=== PATIENT | female | born 1955 | race Caucasian/White ===

== ENCOUNTER 2016-10-07 18:29 | Observation (INO) ==
[2016-10-07] MEDS ORDERED: 0.9 % Sodium Chloride 1,000 ML IVC ONE (18:54)
[2016-10-07 19:31] LABS: Basophils % 0.3 %; Eosinophils % 0.2 %; Hematocrit 47.8 % (35.3-44.9); Hemoglobin 16.2 g/dL (11.5-15.4); Immature Granulocytes % 0.4 % (0-4); Lymphocytes # 1.2 K/mcL (0.6-4.6); Lymphocytes % 11.9 %; Mean Corpuscular HGB Conc 33.9 g/dL (31.6-35.5); Mean Corpuscular Hemoglobin 30.7 pg (28.0-33.3); Mean Corpuscular Volume 90.5 fL (83.0-100.0); Mean Platelet Volume 11.5 fL (9.4-12.4); Monocytes # 0.7 K/mcL (0.0-1.3); Monocytes % 7.5 %; Neutrophils # 7.8 K/mcL (1.6-8.9); Platelet Count 359 K/mcL (140-400); Red Blood Count 5.28 M/mcL (3.82-4.97); Red Cell Distribution Width 13.6 % (11.5-14.5); Segmented Neutrophils % 79.7 %
[2016-10-07 19:34] LABS: Ionized Calcium 1.19 mmol/L (1.15-1.35)
[2016-10-07 19:43] LABS: Albumin 3.7 g/dL (3.5-5.0); Bilirubin,Total 1.2 mg/dL (0.2-1.2); Calcium 10.1 mg/dL (8.6-10.8); Globulin 3.8 g/dL (2.4-3.5); Magnesium 1.9 mg/dL (1.6-2.6); Potassium 3.7 mEq/L (3.5-4.5); Total Protein 7.5 g/dL (6.0-8.3)
--- NOTE | 2016-10-07 19:53 | Emergency Department Note ---
Disposition Clinical Impression: Elevated creatine kinase, Dehydration Depression Qualifiers: Depression Type: unspecified Qualified Code(s): F32.9 - Major depressive disorder, single episode, unspecified Failure to thrive Qualifiers: Failure to thrive age range: in adult Qualified Code(s): R62.7 - Adult failure to thrive Disposition: Admitted As Inpatient Condition: Good Referrals: NO,PCP [Non-Partnered Physician] - Time of Disposition: 21:18 Weakness HPI - General Chief complaint: ED General Medical Stated complaint: GENERAL Time Seen by Provider: 10/07/16 18:30 Source: patient, EMS Mode of arrival: EMS Limitations: no limitations Nursing Notes Reviewed: Yes Vital Signs Reviewed: Yes - History of Present Illness HPI Narrative: Patient presents emergency room for evaluation of generalized malaise and weakness. According to family patient has been sitting on the toilet for the last 4 days and has not moved. They are concerned about her medical condition. She has underlying depression and also concerned about a secondary to life stressors. She has no money and has financial issues along with Advair has been doing placed in a care home. Patient denies chest pain shortness of breath headache changes nausea vomiting or diarrhea. Family recommended she come to the emergency room and evaluated. Pt Subjective Complaint: generalized weakness/fatigue Onset (ago): day(s) Duration: constant Location: generalized Migration: none Pain Severity: none Pain Scale: 0 If pain, quality: numbness Improves with: none Worsens with: none Context: history of similar - Related Data Home Medications Medication Instructions Recorded Confirmed Acetaminophen [Tylenol Arthritis] 650 mg PO BID PRN 10/07/16 10/07/16 Cyclobenzaprine [Flexeril] 10 mg PO HS 10/07/16 10/07/16 Gabapentin [Neurontin] 300 mg PO TID 10/07/16 10/07/16 Hydrochlorothiazide [Microzide] 12.5 mg PO DAILY 10/07/16 10/07/16 Levothyroxine [Synthroid] 175 mcg PO 0630 10/07/16 10/07/16 Lovastatin 40 mg PO DAILY 10/07/16 10/07/16 Mv-Mn/FA/Vit K/Lycop/Lut/Coq10 1 each PO DAILY 10/07/16 10/07/16 [Daily Multivitamin Capsule] Paricalcitol [Zemplar] 1 mcg PO DAILY 10/07/16 10/07/16 Potassium Chloride [K-Tab ER] 20 meq PO DAILY 10/07/16 10/07/16 Allergies Allergy/AdvReac Type Severity Reaction Status Date / Time No Known Allergies Allergy Verified 10/07/16 20:12 All systems ED: reviewed and negative except as stated. Constitutional: Denies: fever, chills Cardiovascular: Denies: chest pain, palpitations, dyspnea on exertion Respiratory: Denies: dyspnea, wheezes Gastrointestinal: Denies: abdominal pain, nausea, vomiting, diarrhea Genitourinary: Denies: dysuria, frequency Musculoskeletal: Denies: back pain, neck pain Neurological: Denies: headache Psychiatric: Reports: depression Endocrine: Reports: fatigue Past Medical History - Past Medical History Attestation: Yes The following information was validated with the patient. Source: patient, old records reviewed, obtained from family Medical history: Reports: diabetes, hyperlipidemia, hypertension, renal disease , thyroid disease Psychiatric history: Reports: no psych history - Social History Smoking Status: Former smoker Smokeless Tobacco Status: No Alcohol use: Reports: none Drug use: Reports: none Physical Exam - General Limitations: no limitations General appearance: alert - Head Head exam: atraumatic, normocephalic, normal inspection - Neck Neck exam: Present: normal inspection, full ROM, trachea midline - Chest Chest inspection: Present: normal inspection, symmetric chest wall rise - Respiratory Respiratory exam: Present: normal lung sounds bilaterally - Cardiovascular Cardiovascular exam: Present: regular rate, normal rhythm, normal heart sounds - Abdominal Exam Abdominal exam: Present: soft, Non-Tender, normal bowel sounds. Absent: tenderness, distention, guarding, rebound, rigidity, Carty's sign, Rovsing's sign, tenderness at McBurney's Point, pulsatile mass, hernia - Extremities Exam Extremities exam: Present: normal inspection, full ROM, normal capillary refill. Absent: pedal edema - Back Exam Back exam: Present: normal inspection, full ROM. Absent: tenderness - Neurological Exam Neurological exam: Present: alert, oriented X3, CN II-XII intact - Psychiatric Psychiatric exam: Present: normal affect, normal mood - Skin Skin exam: Present: warm, dry, intact, normal color Course Course Narrative: Patient seen and examined at the time of arrival. See history of present illness. Patient presented by EMS at the request of the family for evaluation of generalized malaise weakness and depression. Patient said that she been sitting on her toilet for approximately 4 days. Patient has a history of depression. She has not been taking her medications. She also has 2 significant life stressors including financial issues as well as her being placed in a care home within the last month. Family denies any other symptoms or complaint prior to this. She has had issues like this in the past physical exam is benign. Patient has flat affect and withdrawn presentation she interacts and answers questions but is with some encouragement. Lungs are clear heart is regular abdomen is soft. She has no guarding or rigidity. She moves her extremities without any deficit. She has normal sensation. Her skin appears to have several areas of either stool or dirt on her feet and legs. Patient has no visible signs of injury to the lower extremity skin breakdown or deterioration. Family is more concerned at this point prefer to thrive, depression and inability take care of herself at home. They do not live closely and she takes care of herself at this time. At this point we will do an evaluation for generalized weakness including electrolytes CK urinalysis fluid hydration and intervention as needed. Disposition of indeterminate treatment course is completed. Social work is not available at this time a consultation will be placed once the workup and treatment course are completed. Disposition pending treatment and evaluation. - Reevaluation(s) Reevaluation #1: Patient is found to have an elevated CK at 318. Clinically this is not significant but it is not known whether it is trending up trending down at this time. Fluid hydration given. Patient has no other acute abnormalities on exam. My concern is that she has failure to thrive increasing depression that is causing concern for her medical condition and treatment of herself. Patient this time was discussed with the hospitalist for admission secondary to elevated CK 4 trending fluid hydration and social studies department chair consult. Will review the patient's course of care medical intervention presentation and family concern in great detail. After conversation he is comfortable admitting the patient for further evaluation. Admission is clinically warranted at this time with my concern being that the patient may continue to decompensate and she does not have appropriate resources in place and no family close. Patient is stable at the time of being admitted to the hospital for further evaluation and treatment. Will continue monitoring. Family informed. Disposition pending treatment course. Time: 21:04 Vital Signs Temperature 97.4 F L 10/07/16 18:32 Pulse Rate 89 10/07/16 18:32 Respiratory Rate 16 10/07/16 18:32 Blood Pressure 140/90 10/07/16 18:32 O2 Sat by Pulse Oximetry 97 10/07/16 18:32 Temperature 97.4 F L 10/07/16 18:32 Pulse Rate 89 10/07/16 18:32 Respiratory Rate 16 10/07/16 21:23 Blood Pressure 121/77 10/07/16 21:23 O2 Sat by Pulse Oximetry 97 10/07/16 18:32 Oxygen Delivery Oxygen Delivery Room Air Weakness - MDM Narrative Medical decision making narrative: Elevated CK, dehydration, weakness, failure to thrive, depression - Medical Records Medical records reviewed: Yes I reviewed the patient's medical records. - Lab Data Lab results reviewed: Yes I reviewed the patient's lab results. Result diagrams: 10/07/16 19:22 10/07/16 19:22 Lab Results 10/07/16 10/07/16 10/07/16 Range/Units 19:22 19:22 19:22 WBC 9.8 (4.3-11.1) K/mcL RBC 5.28 H (3.82-4.97) M/mcL Hgb 16.2 H (11.5-15.4) g/dL Hct 47.8 H (35.3-44.9) % MCV 90.5 (83.0-100.0) fL MCH 30.7 (28.0-33.3) pg MCHC 33.9 (31.6-35.5) g/dL RDW 13.6 (11.5-14.5) % Plt Count 359 (140-400) K/mcL MPV 11.5 (9.4-12.4) fL Immature Gran % 0.4 (0-4) % Seg Neutrophils % 79.7 % Lymphocytes % 11.9 % Monocytes % 7.5 % Eosinophils % 0.2 % Basophils % 0.3 % Neutrophils # 7.8 (1.6-8.9) K/mcL Lymphocytes # 1.2 (0.6-4.6) K/mcL Monocytes # 0.7 (0.0-1.3) K/mcL Eosinophils # 0.0 (0.0-0.6) K/mcL Basophils # 0.0 (0.0-0.2) K/mcL Sodium 139 (136-145) mEq/L Potassium 3.7 (3.5-4.5) mEq/L Chloride 100 (98-109) mEq/L Carbon Dioxide 25 (19-29) mEq/L BUN 30 H (7-20) mg/dL Creatinine 1.17 H (0.57-1.11) mg/dL Est GFR ( Amer) 57 L (> 60) Est GFR (Non-Af Amer) 47 L (> 60) BUN/Creatinine Ratio 26 (6-26) Glucose 131 H (70-99) mg/dL Calculated Osmolality 296 (280-300) Lactic Acid 1.7 (0.5-2.2) mmol/L Calcium 10.1 (8.6-10.8) mg/dL Ionized Calcium 1.19 (1.15-1.35) mmol/L Magnesium 1.9 (1.6-2.6) mg/dL Total Bilirubin 1.2 (0.2-1.2) mg/dL AST 23 (5-34) Units/L ALT 20 (0-55) Units/L Alkaline Phosphatase 74 (38-126) Units/L Creatine Kinase 316 H (29-168) Units/L Troponin I (0-0.03) ng/mL Serum Total Protein 7.5 (6.0-8.3) g/dL Albumin 3.7 (3.5-5.0) g/dL Globulin 3.8 H (2.4-3.5) g/dL Albumin/Globulin Ratio 1.0 L (1.1-2.2) Urine Color (Yellow) Urine Clarity (Clear) Urine pH (5.0-8.0) pH Units Ur Specific [place] (1.010-1.025) Urine Protein (Neg-Trace) mg/dL Urine Glucose (UA) (Normal) mg/dL Urine Ketones (Negative) mg/dL Urine Blood (Negative) Urine Nitrite (Negative) Urine Bilirubin (Negative) Urine Urobilinogen (Normal) mg/dL Ur Leukocyte Esterase (Negative) Urine Microscopic RBC (0-3) per hpf Urine Microscopic WBC (0-3) per hpf Ur Squamous Epith Cells (None-Few) per lpf Urine Bacteria (None-Few) per hpf Hyaline Casts (None-Few) per lpf Ur Culture Indicated? (NO) 05/03/17 05/03/17 Range/Units 19:22 20:36 WBC (4.3-11.1) K/mcL RBC (3.82-4.97) M/mcL Hgb (11.5-15.4) g/dL Hct (35.3-44.9) % MCV (83.0-100.0) fL MCH (28.0-33.3) pg MCHC (31.6-35.5) g/dL RDW (11.5-14.5) % Plt Count (140-400) K/mcL MPV (9.4-12.4) fL Immature Gran % (0-4) % Seg Neutrophils % % Lymphocytes % % Monocytes % % Eosinophils % % Basophils % % Neutrophils # (1.6-8.9) K/mcL Lymphocytes # (0.6-4.6) K/mcL Monocytes # (0.0-1.3) K/mcL Eosinophils # (0.0-0.6) K/mcL Basophils # (0.0-0.2) K/mcL Sodium (136-145) mEq/L Potassium (3.5-4.5) mEq/L Chloride (98-109) mEq/L Carbon Dioxide (19-29) mEq/L BUN (7-20) mg/dL Creatinine (0.57-1.11) mg/dL Est GFR ( Amer) (> 60) Est GFR (Non-Af Amer) (> 60) BUN/Creatinine Ratio (6-26) Glucose (70-99) mg/dL Calculated Osmolality (280-300) Lactic Acid (0.5-2.2) mmol/L Calcium (8.6-10.8) mg/dL Ionized Calcium (1.15-1.35) mmol/L Magnesium (1.6-2.6) mg/dL Total Bilirubin (0.2-1.2) mg/dL AST (5-34) Units/L ALT (0-55) Units/L Alkaline Phosphatase (38-126) Units/L Creatine Kinase (29-168) Units/L Troponin I 0.01 (0-0.03) ng/mL Serum Total Protein (6.0-8.3) g/dL Albumin (3.5-5.0) g/dL Globulin (2.4-3.5) g/dL Albumin/Globulin Ratio (1.1-2.2) Urine Color Dark Yellow (Yellow) Urine Clarity Clear (Clear) Urine pH 6.0 (5.0-8.0) pH Units Ur Specific [place] > 1.030 H (1.010-1.025) Urine Protein 100 H (Neg-Trace) mg/dL Urine Glucose (UA) Normal (Normal) mg/dL Urine Ketones 15 H (Negative) mg/dL Urine Blood Negative (Negative) Urine Nitrite Negative (Negative) Urine Bilirubin Moderate H (Negative) Urine Urobilinogen Normal (Normal) mg/dL Ur Leukocyte Esterase Negative (Negative) Urine Microscopic RBC 3-5 H (0-3) per hpf Urine Microscopic WBC 3-5 H (0-3) per hpf Ur Squamous Epith Cells Many H (None-Few) per lpf Urine Bacteria Few (None-Few) per hpf Hyaline Casts None Seen (None-Few) per lpf Ur Culture Indicated? NO (NO) - Radiology Data Radiology results reviewed: Yes I reviewed the patient's radiology results. Chest x-ray is negative for acute pulmonary infiltrate. - EKG Data EKG attestation: Yes I reviewed and interpreted this EKG. EKG shows normal: sinus rhythm, axis, intervals, QRS complexes, ST-T waves Rate: normal Rhythm: NSR [place]/QRS: normal When compared to previous EKG there are: no significant changes Interpretation: no acute changes, unchanged when compared to prior tracing (date ) Attestation Statement - Attestation Attestation: I examined this patient and my medical decision-making was reviewed with the [employer]ACHUTE RIGGER/PA/Advanced Practice Nurse/Resident Physician. I agree with the documented findings, disposition and treatment plan as described except to the extent set forth below. Patient to the emergency department with weakness. Depression. Patient lives at home alone. States she has been sitting on her toilet for 4 days. Her legs went numb from it. The numbness is recovered. On examination she appears disheveled. She is obese. Sensations intact her lower extremities. Plan. Patient is a slightly elevated CK likely from sitting on toilet for days. Her neurologic symptoms have resolved. Concern for her safety at home. Patient is admitted to the hospital.
[2016-10-07 20:42] LABS: Bilirubin,Urine Moderate (Negative); Blood,Urine Negative (Negative); Clarity,Urine Clear (Clear); Color,Urine Dark Yellow (Yellow); Glucose,Urine (UA) Normal (Normal); Ketones,Urine 15 mg/dL (Negative); Leukocyte Esterase,Urine Negative (Negative); Nitrite,Urine Negative (Negative); Protein,Urine 100 mg/dL (Neg-Trace); Specific Gravity,Urine > 1.030 (1.010-1.025); Urobilinogen,Urine Normal (Normal)
[2016-10-07 20:43] LABS: Bacteria,Urine Few per hpf (None-Few); Hyaline Casts,Urine None Seen per lpf (None-Few); Squamous Epithelial Cell,Urine Many per lpf (None-Few)
--- NOTE | 2016-10-08 02:00 | Internal Med History&Physical ---
<Gil Greenfield - Last Filed: 10/08/16 08:41> Date of Encounter: 10/08/16 Time of Encounter: 02:00 Assessment and Plan (1) Cellulitis Current visit: Yes Status: Acute -R foot. Noticed for 2 days. Not septic Plan -Start clinda -No podiatry consult needed at this time Qualifiers: Site of cellulitis: extremity Site of cellulitis of extremity: lower extremity Laterality: right Qualified Code(s): L03.115 - Cellulitis of right lower limb (2) Elevated creatine kinase Current visit: Yes Status: Acute -patient has not eaten or drank for a 4 days. -CK 316. Likely due to dehyrdation -Does complain of bilateral tricep pain. Denies weakness in proximal muscles, new onset parasthesias, FNLD, no new rashes. Doubt polymyositis/dematomyositis. CK <1,000. Not concerned with rhabdo. Believe this is acute CK elevation due to dehydration and possibly from slight muscle breakdown from sitting for 4 days/ having to move upon admission. I dont feel a full blown workup for elevated CK warranted. Plan -Draw CK at 8am -Diabetic diet -Fluids: NS 75ml (3) Diabetes Current visit: Yes Status: Acute -BS 130's -No home DM medication noted. Patient states she doesnt take any -Will initiate low dose sliding scale -Doubt patient took insulin to lower her BS that caused her to become lethargic. Denies previous suicide attempts. -Continue gabapentin. Qualifiers: Diabetes mellitus type: type 2 Diabetes mellitus complication status: with unspecified complications Diabetes mellitus longterm insulin use: unspecified longterm insulin use status Qualified Code(s): E11.8 - Type 2 diabetes mellitus with unspecified complications (4) Hypothyroid Current visit: Yes Status: Acute -Patient non compliant with medication -Will get TSH, free and total T4 Qualifiers: Hypothyroidism type: unspecified Qualified Code(s): E03.9 - Hypothyroidism , unspecified (5) DVT prophylaxis Current visit: Yes Status: Acute based on Cr and GFR, will do SQ heparin -Elevation likely due to dehydration. Patient not in GARRY. (6) Dehydration Current visit: Yes Status: Acute -mucus membranes dry. See above. Fluids (7) Depression Current visit: Yes Status: Acute -Secondary to acute stressors. Denies previous diagnosis or meds. -Will get psych consult. Will draw thyroid labs.Social service consult. Qualifiers: Depression Type: unspecified Qualified Code(s): F32.9 - Major depressive disorder, single episode, unspecified Internal Medicine - H&P: HPI Chief complaint: Generalized Malaise and Weakness Admitted From: Emergency Dept Plans for Post Hospital Care: Home History of present illness: Revaluated patient around 6am. Got a different HPI concerning why she was on the toilet for 4days. The last paragraph explains the change in the reevaluation , possible treatment and further management. Ms. Bass is a 61 year old female, PMH DM II, HTN, hypothyroidism, Depression, admitted for generalized weakness/ malaise, elevated CK 316, social service consult. Patient was found by family on the toilet in a disheveled/depressed state. Patient states that she has been sitting on the toilet for 4 days not eating or drinking because she didn't feel like getting up. She feels depressed , loss of interest, sleepiness, not eating or drinking. She has had 2 life stressors this month-financially and her placed in a fdc (per ED report). Patient states that she lives with her only, didnt really comment on fdc nor wanted to talk about it. She denies being diagnosed with depression or taking depression medication. Her only complaint is some bilateral triceps pain that happened 2 days ago. Described as sharp and only occurring when she moves her arms. Relieved by rest. She hasnt had this pain before. Denies weakness in shoulders or extremities, FNLD, [place]/blurry vision/new onset numbness or tingling. She does take gabapentin for peripheral neuropathy secondary to DM. Denies CP/SOB/Abdominal pain/urinary problems/bowel changes. No changes to medication. No drug, alcohol, smoking use. No recent surgeries. Family was concerned that patient was in a deteriorated state and admitted for fear of decompensation and addiction social worker/psych needs to get involved. Currently, patient states that she feels better now than before because she is able to rest. Her mood is flat. However, she does smile occasionally and jokes. Denies thoughts of harming herself or others. Revaluation in the morning when patient more responsive and provided more than one word answers: Patient states that she didn't get off the toilet for 4 days because of lower extremity weakness. That it took too much effort to raise herself up. She denies weakness to other parts of her body. Admits to Has not had this happen to her before. She admits to R foot edema/swelling/erythema for the past 2 days. Seems unconcerned with the appearance of her foot. She denies trauma to the area. physical exam: R foot erythema and swelling located throughout foot. There is noticeable odor, similar to a fungating area. No ulcers. No streaking up into the ankle, fluctuate mass, sole tenderness, signs of trauma.Is able to raise legs bilaterally and against resistance. Plantar and dorsiflex against resistance. Wiggle her does and normal sensation throughout. Patellar reflex hard to illicit. Patient not relaxing and has R total knee replacement. Calcaneal reflex WNL bilaterally. Lower extremity peripheral pulses +2/4. A/p: add antibiotics (clinda), is not septic. Psychiatry spoken with. Past Med Surg Social Fam HX - Past Medical History Medical history: diabetes, hyperlipidemia, hypertension, renal disease, thyroid disease Psychiatric history: no psych history - Past Surgical History Surgical History: knee replacement - Social History Smoking Status: Former smoker Smokeless Tobacco Status: No Alcohol use: none Drug use: none - Family History Mother History Unknown: Yes Adopted: [place]: [place] Family Member Ethnicity: Non- Living Status: Age at : 88 Cause of : Cancer Hx Family Cardiac Disorders: No Hx Family Respiratory Disorders: No Hx Family Cancer: Yes Hx Family GI Disorders: No Hx Family Genitourinary Disorders: No Hx Family Endocrine Disorder: No Hx Family Musculoskeletal Disorders: No Hx Family Neuromuscular Disorders: No Hx Family Neurologic Disorders: No Hx Family HEENT Disorders: No Hx Family Autoimmune Disorders: No Hx Family Reproductive Disorders: No Hx Family Psychosocial Disorders: No Hx Family Medical Disorders: No Father History Unknown: Yes Adopted: [place]: [place] Age: 63 Family Member Ethnicity: Non- Living Status: Age at : 63 Cause of : Heart issues Hx Family Cardiac Disorders: Yes Hx Family Respiratory Disorders: No Hx Family Cancer: Yes Hx Family GI Disorders: No Hx Family Genitourinary Disorders: No Hx Family Endocrine Disorder: No Hx Family Musculoskeletal Disorders: No Hx Family Neuromuscular Disorders: No Hx Family Neurologic Disorders: No Hx Family HEENT Disorders: No Hx Family Autoimmune Disorders: No Hx Family Reproductive Disorders: No Hx Family Psychosocial Disorders: No Hx Family Medical Disorders: No Internal Medicine - H&P: Meds Acetaminophen [Tylenol Arthritis] 650 mg PO BID PRN 10/07/16 [History] Cyclobenzaprine [Flexeril] 10 mg PO HS 10/07/16 [History] Gabapentin [Neurontin] 300 mg PO TID 10/07/16 [History] Hydrochlorothiazide [Microzide] 12.5 mg PO DAILY 10/07/16 [History] Levothyroxine [Synthroid] 175 mcg PO 0630 10/07/16 [History] Lovastatin 40 mg PO DAILY 10/07/16 [History] Mv-Mn/FA/Vit K/Lycop/Lut/Coq10 [Daily Multivitamin Capsule] 1 each PO DAILY 08/21 [History] Paricalcitol [Zemplar] 1 mcg PO DAILY 10/07/16 [History] Potassium Chloride [K-Tab ER] 20 meq PO DAILY 10/07/16 [History] Allergies No Known Allergies Allergy (Verified 10/07/16 20:12) All Systems PM: A 10-system review of systems was performed and is negative for pertinent findings except as documented above in the HPI. - Constitutional Constitutional: as per HPI - EENT Eyes: no change in vision, no discharge, no pain, no photophobia - Cardiovascular Cardiovascular ROS IM: no chest pain, no diaphoresis, no dyspnea, no lightheadedness, no palpitations, no syncope - Gastrointestinal Gastrointestinal: no abdominal pain, no diarrhea, no hematemesis, no hematochezia, no melena, no nausea, no vomiting - Neurological Neurological ROS: no confusion, no convulsions, no focal weakness, no numbness, no tingling, no tremor(s) - Psychiatric Psychiatric: as per HPI - Endocrine Endocrine IM: as per HPI - Constitutional Vitals: Temp Pulse Resp BP Pulse Ox 97.5 F L 99 16 126/89 93 10/07/16 22:00 10/07/16 22:00 10/07/16 22:00 10/07/16 22:00 10/07/16 22:00 General appearance: Present: A&O X 3, no acute distress, answers questions appropriately - Head Head exam: Present: atraumatic, normocephalic - Eye Eye exam: Present: PERRL, conjuntiva pink, sclera anicteric Pupils: Present: PERRL - ENT ENT exam: Present: mucous membranes dry - Respiratory Respiratory exam: Present: CTAB. Absent: accessory muscle use, rales, rhonchi, wheezes - Cardiovascular Cardiovascular exam: Present: RRR, +S1, +S2. Absent: diastolic murmur, gallop, rubs, systolic murmur - GI/Abdominal GI/Abdominal exam: Present: soft, no peritoneal signs. Absent: distended, tenderness - Extremities Exam Additional comments: upper extremity Bilaterally: unable to reproduce pain on palpation. Patient no longer having pain. Able to move extremities. Pulses intact. - Neurological Exam Neurological exam: Present: CN II-XII intact, oriented X3, no focal deficits. Absent: facial droop, speech deficit - Psychiatric Psychiatric exam: Present: depressed, flat affect. Absent: homicidal ideation, suicidal ideation - Expanded Psychiatric Exam Focused psych exam: Absent: flight of ideas, mute, pressured speech Internal Med - H&P Results - Labs CBC & Chem 7: 10/07/16 19:22 10/07/16 19:22 <Partha Hopper R - Last Filed: 10/08/16 09:37> Date of Encounter: 10/08/16 Internal Medicine - H&P: HPI History of present illness: Ms. Bass is a 61 year old female All Systems PM: A 10-system review of systems was performed and is negative for pertinent findings except as documented above in the HPI. - Constitutional Vitals: Temp Pulse Resp BP Pulse Ox 98.7 F 94 18 120/75 95 10/08/16 06:54 10/08/16 06:54 10/08/16 06:54 10/08/16 06:54 10/08/16 06:54 Internal Med - H&P Results - Labs CBC & Chem 7: 10/07/16 19:22 10/07/16 19:22 Labs: Cardiac Enzymes 10/08/16 Range/Units 03:38 Troponin I 0.01 (0-0.03) ng/mL - Attending Attestation I performed history and physical examination of the patient and discussed management with the Snow Technician / Resident. I reviewed the Snow Technician / Residents note and agree with documented findings and plan of care. 61 Y/F with h/o DM II, HTN, hypothyroidism, Depression was sitting on the toilet for 4 days because she felt weak and could not get up. Patient was found by family on the toilet in a disheveled/depressed state. She was noted to have CK of 316 in the ER. O/E: not in acute distress. Lungs: Clear to auscultation. Cardiac: RRR. There is local erythema over the right foot, with local warmth cellulitis versus thermal injury Labs reviewed. CXR: No acute cardiopulmonary findings. A/P: Elevated creatine kinase / rhabdomyolysis: likely related to sitting on the toilet for long versus hypothyroidism. Continue IV fluids and monitor CK levels. Suspected cellulitis of the right foot: Start clindamycin Depression: Continue home medications. She does not want to see psychiatrist at this time.
[2016-10-08] MEDS ORDERED: Naloxone 0.4 MG/ML INJ IVP PRN (02:11)
[2016-10-08] MEDS ORDERED: Ibuprofen 400 MG TABLET PO PRN (02:11)
[2016-10-08] MEDS ORDERED: 0.9 % Sodium Chloride 1,000 ML IVC SCH (02:15)
[2016-10-08] MEDS ORDERED: *HR* Dextrose 50 % in Water (Syg) 50 ML SYRINGE IVP PRN (03:40)
[2016-10-08] MEDS ORDERED: D5% in Water 1,000 ML IVC PRN (03:40)
[2016-10-08] MEDS ORDERED: Dextrose Gel 15 GM PO PRN ×2 (03:40)
[2016-10-08 04:49] LABS: Thyroid Stimulating Hormone 56.011 mcIU/mL (0.350-4.840)
[2016-10-08] MEDS: Acetaminophen 325 MG TABLET PO PRN ×2 (05:09→19:59)
[2016-10-08] MEDS: *HR* Heparin 5,000 UNIT/ML VIAL SQ SCH ×2 (05:10→17:12)
[2016-10-08] MEDS ORDERED: Ampicillin/Sulbactam 3,000 MG in 0.9 % Sodium Chloride Mini Bag 100 ML IVPB SCH (07:34)
[2016-10-08] MEDS: Insulin LISPRO 300 UNITS/3 ML VIAL SQ SCH ×3 (08:30→17:15)
[2016-10-08] MEDS: Gabapentin 300 MG CAPSULE PO SCH ×3 (08:34→19:59)
[2016-10-08] MEDS: Lactobacillus 1 EACH CAP.SPRINK PO SCH ×2 (08:34→19:59)
[2016-10-08] MEDS: Multivit/Ca/Min/Fe/FA 1 TAB TABLET PO SCH (08:34)
[2016-10-08] MEDS: hydroCHLOROthiazide 25 MG TABLET PO SCH (08:35)
--- NOTE | 2016-10-08 10:36 | Electrocardiograph Report ---
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
--- NOTE | 2016-10-08 14:49 | Event Note ---
Date of Encounter: 10/08/16 Time of Encounter: 14:49 61-year-old female with history of diabetes, hypothyroidism, chronic kidney disease, was admitted with generalized weakness and inability to move from her bathroom for at least 3-4 days. Patient is noted to have slightly elevated serum creatinine kinase along with depression and generalized weakness. Thyroid profile also shows very elevated TSH of 56 and low free T4 of 0.53. Patient seen and examined at bedside. Denies any complaints at this time, mood seems improved. Chest-S1, S2 heard. Lungs are clear to auscultation. Bilateral ankle jerks- slightly delayed Uncontrolled hypothyroidism- patient does demonstrate knowledge of levothyroxin peeled from the rest of her medications and meals by at least 1 hour and reports compliance. Levothyroxin dose has recently been increased by her primary care provider to 175 g daily, about 3 months back. Will start IV levothyroxine while in the hospital. Continue to monitor closely. Generalized weakness-likely due to uncontrolled hypothyroidism. Continue IV hydration, serum CK levels are trending down. Physical therapy evaluation. rehabilitation services aide consult. Continue home medications for other chronic comorbidities.
[2016-10-08] MEDS ORDERED: Insulin DETEMIR 100 UNIT/ML X5UNITS SQ SCH (21:00)
[2016-10-09 04:09] LABS: Hematocrit 39.8 % (35.3-44.9)
[2016-10-09 04:32] LABS: BUN/Creatinine Ratio 19 (6-26); Blood Urea Nitrogen 20 mg/dL (7-20); Calcium 8.8 mg/dL (8.6-10.8); Carbon Dioxide 26 mEq/L (19-29); Chloride 104 mEq/L (98-109); Glucose 89 mg/dL (70-99); Osmolality,Calculated 290 (280-300); Potassium 3.4 mEq/L (3.5-4.5); Sodium 139 mEq/L (136-145); eGFR For African Americans > 60 (> 60); eGFR For Non-African Americans 53 (> 60)
[2016-10-09] MEDS: *HR* Heparin 5,000 UNIT/ML VIAL SQ SCH ×2 (06:08→17:20)
[2016-10-09] MEDS: Insulin LISPRO 300 UNITS/3 ML VIAL SQ SCH ×3 (08:15→16:45)
[2016-10-09] MEDS: Multivit/Ca/Min/Fe/FA 1 TAB TABLET PO SCH (08:25)
[2016-10-09] MEDS: Lactobacillus 1 EACH CAP.SPRINK PO SCH (08:25)
[2016-10-09] MEDS: hydroCHLOROthiazide 25 MG TABLET PO SCH (08:26)
[2016-10-09] MEDS: Gabapentin 300 MG CAPSULE PO SCH ×2 (08:26→15:24)
[2016-10-09] MEDS ORDERED: Levothyroxine Sodium 100 MCG VIAL IVP SCH (09:00)
[2016-10-09] MEDS ORDERED: Potassium Chloride Elixir 20 MEQ/15 ML UDC PO ONE (13:54)
[2016-10-09 15:18] VITALS: BP 119/78
--- NOTE | 2016-10-09 15:24 | Discharge Summary ---
Date of Encounter: 10/09/16 Time of Encounter: 15:14 - Discharge Diagnosis (1) Elevated creatine kinase Priority: Primary Status: Acute (2) Depression Priority: Primary Status: Acute Qualifiers: Depression Type: unspecified Qualified Code(s): F32.9 - Major depressive disorder, single episode, unspecified (3) CKD (chronic kidney disease) Priority: Secondary Status: Chronic Qualifiers: Chronic kidney disease stage: stage 3 (moderate) Qualified Code(s): N18.3 - Chronic kidney disease, stage 3 (moderate) (4) Diabetes Priority: Secondary Status: Chronic Qualifiers: Diabetes mellitus type: type 2 Diabetes mellitus complication status: with kidney complications Diabetes mellitus complication detail: with chronic kidney disease Diabetes mellitus halfway insulin use: without adjunct faculty for medical terminology use Chronic kidney disease stage: stage 3 (moderate) Qualified Code(s): E11.22 - Type 2 diabetes mellitus with diabetic chronic kidney disease; N18.3 - Chronic kidney disease, stage 3 (moderate) (5) Hypothyroid Priority: Primary Status: Chronic Qualifiers: Hypothyroidism type: unspecified Qualified Code(s): E03.9 - Hypothyroidism , unspecified - Discharge Medications Prescriptions: Levothyroxine [Synthroid] 175 mcg PO 0630 #30 tablet Levothyroxine [Synthroid] 25 mcg PO 0630 #30 tablet Sertraline [Zoloft] 25 mg PO DAILY #30 tablet Home Medications: Acetaminophen [Tylenol Arthritis] 650 mg PO BID PRN 10/07/16 [History] Cyclobenzaprine [Flexeril] 10 mg PO HS 10/07/16 [History] Gabapentin [Neurontin] 300 mg PO TID 10/07/16 [History] Hydrochlorothiazide [Microzide] 12.5 mg PO DAILY 10/07/16 [History] Lovastatin 40 mg PO DAILY 10/07/16 [History] Mv-Mn/FA/Vit K/Lycop/Lut/Coq10 [Daily Multivitamin Capsule] 1 each PO DAILY 08/21 [History] Paricalcitol [Zemplar] 1 mcg PO DAILY 10/07/16 [History] Potassium Chloride [K-Tab ER] 20 meq PO DAILY 10/07/16 [History] Levothyroxine [Synthroid] 25 mcg PO 0630 #30 tablet 10/09/16 [Rx] Levothyroxine [Synthroid] 175 mcg PO 0630 #30 tablet 10/09/16 [Rx] Sertraline [Zoloft] 25 mg PO DAILY #30 tablet 10/09/16 [Rx] Allergies/Adverse Reactions: Allergies No Known Allergies Allergy (Verified 10/07/16 20:12) Procedures/tests Complete & Pending: Procedures Performed prior 72 hours Category Date Time Status ECG 12 lead ECG [ECG] Routine Y 10/08/16 05:05 Completed Date of admission: 10/07/16 20:54 Primary care physician: Marielos Awad Consults: 10/08/16 14:36 Consult to Occupational Therapy [CONS] Routine Comment: Evaluate, develop and implement POC Reason for Consult: Weakness Consult to Physical Therapy [CONS] Routine Comment: Evaluate, develop and implement POC Reason for Consult: Weakness Consult to Beauty Culturist [CONS] Routine Reason for SW Consult: Safe discharge Discharging clinician: Uma Alanis Anticipated date of discharge: 10/09/16 - Patient Status Disposition: Home, Self-Care Condition: Good Functional capacity at discharge: independent ambulation Overall status at discharge: patient is progressing back to baseline - Discharge Instructions Instructions: Depression (DC) Follow Up With: NO,PCP [Non-Partnered Physician] - Additional Instructions: F/up with PCP in 1-2 weeks F/up with Psychiatry for counseling as early as possible - Diet and Activity Activity: resume usual activities as tolerated Diet: diabetic diet, low fat, low cholesterol, low salt diet Hospital course: Ms. Bass is a 61 year old female with history of hypothyroidism who was admitted after noticed to have been sitting on the toilet for about 4 days per family and patient. She was noted to have generalized weakness and fatigue along with mildly elevated serum creatinine kinase during initial workup. Thyroid profile showed uncontrolled hypothyroidism with very high TSH at around 50 and low free T4. She was noted to be on oral levothyroxin 175 g daily at home. She claims compliance and she was reinforced regarding the need to separate thyroid medication from other medications/4 by at least 60 minutes and she verbalized understanding. She received IV levothyroxin while in the hospital. Levothyroxine dose is being increased to 200 g daily at the time of discharge. She received IV hydration and supportive care and her serum creatinine kinases was trending down to normal. Physical and occupational therapy evaluation was completed and patient was deemed to have no therapy needs and was stable for discharge home. Patient's mental status and more have significantly improved during this hospitalization and she is noted to be alert and oriented, able to make informed decisions with stable mood. She denied any suicidal or homicidal thoughts. Case was discussed with psychiatry and patient was deemed stable for discharge with outpatient mental health follow-up for possible counseling. director of managed services was consulted and patient received appropriate resources for safe discharge and self care at home. - Time Spent with Patient Total time spent providing and/or coordinating discharge services: Greater than 30 minutes (50 min) - Constitutional Vitals: Temp Pulse Resp BP Pulse Ox 97.6 F 65 16 117/78 98 10/09/16 11:41 10/09/16 11:41 10/09/16 11:41 10/09/16 11:41 10/09/16 11:41 General appearance: Present: A&O X 3, answers questions appropriately - Respiratory Respiratory exam: Present: CTAB. Absent: accessory muscle use, rales, rhonchi, wheezes - Cardiovascular Cardiovascular exam: Present: RRR, +S1, +S2. Absent: diastolic murmur, gallop, rubs, systolic murmur
--- NOTE | 2016-10-09 17:37 | Electrocardiograph Report ---
[place] [id number] Test Date: 2016-10-08 Pat Name: Angélica Bass Department: 114 Room: [facility] Gender: F Nut Process Helper: [facility] : 1955 Requested By: Mona Alanis Order Number: [id number] Reading MD: Yahaira Romero Measurements Intervals [place] Rate: 77 P: 60 TN: 169 QRS: -1 QRSD: 85 T: 163 QT: 391 QTc: 423 Interpretive Statements SINUS RHYTHM NONSPECIFIC ST \T\ T-WAVE ABNORMALITY Electronically Signed On 10-09-2016 17:36:11 EDT by Yahaira Romero
[2016-10-11 01:25] LABS: Amphetamines NEGATIVE ng/mL (Cutoff 30); Barbiturates NEGATIVE ng/mL (Cutoff 75); Benzodiazepines NEGATIVE ng/mL (Cutoff 75); Cocaine NEGATIVE ng/mL (Cutoff 30); Methadone NEGATIVE ng/mL (Cutoff 40); Methamphetamines NEGATIVE ng/mL (Cutoff 30); Opiates NEGATIVE ng/mL (Cutoff 30); Phencyclidine NEGATIVE ng/mL (Cutoff 15)
== END 2016-10-09 19:00 | disposition home or self-care (01) ==
LOC: 3NENU 18:29 → EMEROO 18:29 → SUATTDRO 20:54 → 3NENU 21:31
PROVIDERS: ADMIT Internal Medicine; ATTEND Internal Medicine

== ENCOUNTER 2016-10-19 12:17 | Inpatient (IN) ==
--- NOTE | 2016-10-19 12:31 | Emergency Department Note ---
Disposition Clinical Impression: Weakness, Wound cellulitis, Acute psychosis Depression Qualifiers: Depression Type: unspecified Qualified Code(s): F32.9 - Major depressive disorder, single episode, unspecified Disposition: Admitted As Inpatient Referrals: Marielos Awad MD [Primary Care Provider] - Forms: ED Satisfaction Letter General Adult HPI - General Chief complaint: ED GI Bleed Stated complaint: Back Pain/Rectal Bleeding Time Seen by Provider: 10/19/16 12:19 Source: patient, EMS Nursing Notes Reviewed: Yes Vital Signs Reviewed: Yes - History of Present Illness HPI Narrative: Ms. Bass, a 61yo female, presents from home by EMS with CC: bleeding from her buttocks. Patient was found on the toilet where she had been for the past 2-3 days. She has not had PO intake nor has she taken any of her medications. She was found by her sister who called EMS. Meds: Zoloft - patient did not refill prescription, unsure of last dose. Pain Scale: 10 - Related Data Home Medications Medication Instructions Recorded Confirmed Acetaminophen [Tylenol Arthritis] 650 mg PO BID PRN 10/07/16 10/07/16 Cyclobenzaprine [Flexeril] 10 mg PO HS 10/07/16 10/07/16 Gabapentin [Neurontin] 300 mg PO TID 10/07/16 10/07/16 Hydrochlorothiazide [Microzide] 12.5 mg PO DAILY 10/07/16 10/07/16 Lovastatin 40 mg PO DAILY 10/07/16 10/07/16 Mv-Mn/FA/Vit K/Lycop/Lut/Coq10 1 each PO DAILY 10/07/16 10/07/16 [Daily Multivitamin Capsule] Paricalcitol [Zemplar] 1 mcg PO DAILY 10/07/16 10/07/16 Potassium Chloride [K-Tab ER] 20 meq PO DAILY 10/07/16 10/07/16 Previous Rx's Medication Instructions Recorded Levothyroxine [Synthroid] 25 mcg PO 0630 #30 tablet 10/09/16 Levothyroxine [Synthroid] 175 mcg PO 0630 #30 tablet 10/09/16 Sertraline [Zoloft] 25 mg PO DAILY #30 tablet 10/09/16 Allergies Allergy/AdvReac Type Severity Reaction Status Date / Time No Known Allergies Allergy Verified 10/11/16 22:04 All systems ED: reviewed and negative except as stated. Constitutional: Denies: fever, chills, weakness ENT ED: Denies: congestion Cardiovascular: Denies: chest pain, palpitations, dyspnea on exertion Respiratory: Denies: cough, dyspnea, wheezes Gastrointestinal: Denies: abdominal pain, nausea, vomiting, diarrhea, constipation, hematemesis, melena Genitourinary: Denies: urgency, dysuria Musculoskeletal: Denies: back pain, neck pain Neurological: Reports: weakness. Denies: headache, numbness, paresthesias, confusion, abnormal gait, vertigo Psychiatric: Reports: depression Past Medical History - Past Medical History Medical history: Reports: diabetes, hyperlipidemia, hypertension, renal disease , thyroid disease Surgical history: Reports: knee replacement Psychiatric history: Reports: no psych history - Social History Smoking Status: Former smoker Smokeless Tobacco Status: No Alcohol use: Reports: none Drug use: Reports: none Physical Exam Vital signs reviewed: Tachycardic General: Patient is alert, oriented, and in no acute distress. HEENT: No facial asymmetry. Head is normocephalic and atraumatic. Cardiovascular: Heart regular rate and rhythm without clicks, rubs, gallops, or murmurs. No JVD. PMI nondisplaced. Respiratory: Symmetric chest rise with poor respiratory effort. Bilateral breath sounds are clear without wheezing, crackles, or rhonchi. Abdomen: Morbidly obese. Bowel sounds present normoactive x-4 quadrants. Abdomen is soft, nondistended, and nontender. No organomegaly noted. Skin: Skin breakdown on patient's buttocks and the shape of a toilet bowl. Which is foul-smelling and with surrounding erythema. Psych: Patient's affect is flat and solemn. - General General appearance: alert Course Course Narrative: Mild leukocytosis. Elevated creatinine kinase. Skin wounds concerning for cellulitis; will likely need wound care. Patient is agreeable to coming in the hospital for continued therapy management. She is agreeable to seeing a psychiatric counselor. As part of this discussion, she notes that her life has been going downhill since she lost her job in 2007. This appears to be recurrent as patient was admitted to this facility for the same complaint approximately 2 weeks ago. Patient has been accepted to the service of Dr. Gonzalez Vital Signs Temperature 98 F 10/19/16 12:19 Pulse Rate 102 10/19/16 12:19 Respiratory Rate 16 10/19/16 12:19 Blood Pressure 125/62 10/19/16 12:19 O2 Sat by Pulse Oximetry 96 10/19/16 12:19 Temperature 98 F 10/19/16 12:19 Pulse Rate 102 10/19/16 14:51 Respiratory Rate 16 10/19/16 14:51 Blood Pressure 135/86 10/19/16 14:51 O2 Sat by Pulse Oximetry 97 10/19/16 14:51 Oxygen Delivery Oxygen Delivery Room Air Medical Decision Making - Lab Data Result diagrams: 10/19/16 12:57 10/19/16 12:57 Lab Results 10/19/16 10/19/16 10/19/16 Range/Units 12:57 12:57 14:55 WBC 12.7 H (4.3-11.1) K/mcL RBC 4.68 (3.82-4.97) M/mcL Hgb 14.4 (11.5-15.4) g/dL Hct 44.1 (35.3-44.9) % MCV 94.2 (83.0-100.0) fL MCH 30.8 (28.0-33.3) pg MCHC 32.7 (31.6-35.5) g/dL RDW 14.4 (11.5-14.5) % Plt Count 379 (140-400) K/mcL MPV 10.5 (9.4-12.4) fL Immature Gran % 0.5 (0-4) % Seg Neutrophils % 88.5 % Lymphocytes % 5.1 % Monocytes % 5.7 % Eosinophils % 0.0 % Basophils % 0.2 % Neutrophils # 11.3 H (1.6-8.9) K/mcL Lymphocytes # 0.7 (0.6-4.6) K/mcL Monocytes # 0.7 (0.0-1.3) K/mcL Eosinophils # 0.0 (0.0-0.6) K/mcL Basophils # 0.0 (0.0-0.2) K/mcL Sodium 143 (136-145) mEq/L Potassium 3.9 (3.5-4.5) mEq/L Chloride 103 (98-109) mEq/L Carbon Dioxide 27 (19-29) mEq/L BUN 20 (7-20) mg/dL Creatinine 0.97 (0.57-1.11) mg/dL Est GFR ( Amer) > 60 (> 60) Est GFR (Non-Af Amer) 59 L (> 60) BUN/Creatinine Ratio 21 (6-26) Glucose 138 H (70-99) mg/dL Calculated Osmolality 301 H (280-300) Calcium 9.9 (8.6-10.8) mg/dL Creatine Kinase 326 H (29-168) Units/L Urine Opiates Screen Negative (Tauvrc=337) ng/mL Ur Barbiturates Screen Negative ([place]=277) ng/mL Ur Phencyclidine Scrn Negative (Cutoff=25) ng/mL Ur Amphetamines Screen Negative (Sklvkn=7851) ng/mL U Benzodiazepines Scrn Negative (Sytktc=778) ng/mL Urine Cocaine Screen Negative (Cutoff= 300) ng/mL U Marijuana (THC) Screen Negative (Cutoff = 50) ng/mL
[2016-10-19] MEDS ORDERED: 0.9 % Sodium Chloride 1,000 ML IVC ONE ×3 (12:43→21:41)
--- NOTE | 2016-10-19 13:02 | Emergency Department Note ---
Disposition Clinical Impression: Weakness, Wound cellulitis, Depression, Acute psychosis Disposition: Admitted As Inpatient General Adult HPI - General Chief complaint: ED General Medical Stated complaint: Weakness Time Seen by Provider: 10/19/16 12:19 Source: patient, EMS Nursing Notes Reviewed: Yes Vital Signs Reviewed: Yes - History of Present Illness Pain Scale: 10 - Related Data Home Medications Medication Instructions Recorded Confirmed Acetaminophen [Tylenol Arthritis] 650 mg PO BID PRN 10/07/16 10/07/16 Cyclobenzaprine [Flexeril] 10 mg PO HS 10/07/16 10/07/16 Gabapentin [Neurontin] 300 mg PO TID 10/07/16 10/07/16 Hydrochlorothiazide [Microzide] 12.5 mg PO DAILY 10/07/16 10/07/16 Lovastatin 40 mg PO DAILY 10/07/16 10/07/16 Mv-Mn/FA/Vit K/Lycop/Lut/Coq10 1 each PO DAILY 10/07/16 10/07/16 [Daily Multivitamin Capsule] Paricalcitol [Zemplar] 1 mcg PO DAILY 10/07/16 10/07/16 Potassium Chloride [K-Tab ER] 20 meq PO DAILY 10/07/16 10/07/16 Previous Rx's Medication Instructions Recorded Levothyroxine [Synthroid] 25 mcg PO 0630 #30 tablet 10/09/16 Levothyroxine [Synthroid] 175 mcg PO 0630 #30 tablet 10/09/16 Sertraline [Zoloft] 25 mg PO DAILY #30 tablet 10/09/16 Allergies Allergy/AdvReac Type Severity Reaction Status Date / Time No Known Allergies Allergy Verified 10/11/16 22:04 Past Medical History - Past Medical History Medical history: Reports: diabetes, hyperlipidemia, hypertension, renal disease , thyroid disease Surgical history: Reports: knee replacement Psychiatric history: Reports: no psych history - Social History Smoking Status: Former smoker Smokeless Tobacco Status: No Alcohol use: Reports: none Drug use: Reports: none Physical Exam - General General appearance: alert Course Vital Signs Temperature 98 F 10/19/16 12:19 Pulse Rate 102 10/19/16 12:19 Respiratory Rate 16 10/19/16 12:19 Blood Pressure 125/62 10/19/16 12:19 O2 Sat by Pulse Oximetry 96 10/19/16 12:19 Temperature 98 F 10/19/16 12:19 Pulse Rate 106 10/19/16 15:43 Respiratory Rate 18 10/19/16 15:43 Blood Pressure 140/85 10/19/16 15:43 O2 Sat by Pulse Oximetry 96 10/19/16 15:43 Oxygen Delivery Oxygen Delivery Room Air Medical Decision Making - MDM Narrative Medical decision making narrative: I examined this patient and my medical decision-making was reviewed with the CEMENTER HELPER/PA/Advanced Practice Nurse/Resident Physician. I agree with the documented findings, disposition and treatment plan as described except to the extent set forth below. Patient presents today from EMS, I saw her on arrival with Dr. Altman and myself. I agree with his evaluation and treatment plan, I supervised the care of the patient's stay. Patient states she has been sitting on the toilet has not felt like getting up. She said she no some blood positive from her rectum denies any abdominal pain. She has a very flat A fact does have a history of depression she denies homicidal or suicidal ideations denies any hallucinations. This looks similar to the last time she was admitted in the hospital there she had a CPK of 360 she said she did not sit on the toilet for over a day. Going to check some labs hydrate her then reassess. She is in agreement with this plan. 1600 hrs.: Patient does have breakdown or skin which looks like secondary cellulitis on her buttocks. This she says from sitting on the toilet. Her bring her into the hospital spoke with hospitalist evaluated her in the department. She will also need to see psychiatry as an inpatient. Patient's in agreement with this plan. - Lab Data Result diagrams: 10/19/16 12:57 10/19/16 12:57 Lab Results 10/19/16 10/19/16 10/19/16 Range/Units 12:57 12:57 14:55 WBC 12.7 H (4.3-11.1) K/mcL RBC 4.68 (3.82-4.97) M/mcL Hgb 14.4 (11.5-15.4) g/dL Hct 44.1 (35.3-44.9) % MCV 94.2 (83.0-100.0) fL MCH 30.8 (28.0-33.3) pg MCHC 32.7 (31.6-35.5) g/dL RDW 14.4 (11.5-14.5) % Plt Count 379 (140-400) K/mcL MPV 10.5 (9.4-12.4) fL Immature Gran % 0.5 (0-4) % Seg Neutrophils % 88.5 % Lymphocytes % 5.1 % Monocytes % 5.7 % Eosinophils % 0.0 % Basophils % 0.2 % Neutrophils # 11.3 H (1.6-8.9) K/mcL Lymphocytes # 0.7 (0.6-4.6) K/mcL Monocytes # 0.7 (0.0-1.3) K/mcL Eosinophils # 0.0 (0.0-0.6) K/mcL Basophils # 0.0 (0.0-0.2) K/mcL Sodium 143 (136-145) mEq/L Potassium 3.9 (3.5-4.5) mEq/L Chloride 103 (98-109) mEq/L Carbon Dioxide 27 (19-29) mEq/L BUN 20 (7-20) mg/dL Creatinine 0.97 (0.57-1.11) mg/dL Est GFR ( Amer) > 60 (> 60) Est GFR (Non-Af Amer) 59 L (> 60) BUN/Creatinine Ratio 21 (6-26) Glucose 138 H (70-99) mg/dL Calculated Osmolality 301 H (280-300) Calcium 9.9 (8.6-10.8) mg/dL Creatine Kinase 326 H (29-168) Units/L Urine Opiates Screen Negative (Qdwpjj=819) ng/mL Ur Barbiturates Screen Negative (Rqzzoy=977) ng/mL Ur Phencyclidine Scrn Negative (Cutoff=25) ng/mL Ur Amphetamines Screen Negative (Winhbt=0958) ng/mL U Benzodiazepines Scrn Negative (Rsitwu=807) ng/mL Urine Cocaine Screen Negative (Cutoff= 300) ng/mL U Marijuana (THC) Screen Negative (Cutoff = 50) ng/mL
[2016-10-19 13:07] LABS: Basophils % 0.2 %; Hematocrit 44.1 % (35.3-44.9); Hemoglobin 14.4 g/dL (11.5-15.4); Immature Granulocytes % 0.5 % (0-4); Lymphocytes # 0.7 K/mcL (0.6-4.6); Lymphocytes % 5.1 %; Mean Corpuscular HGB Conc 32.7 g/dL (31.6-35.5); Mean Corpuscular Hemoglobin 30.8 pg (28.0-33.3); Mean Corpuscular Volume 94.2 fL (83.0-100.0); Mean Platelet Volume 10.5 fL (9.4-12.4); Monocytes # 0.7 K/mcL (0.0-1.3); Monocytes % 5.7 %; Neutrophils # 11.3 K/mcL (1.6-8.9); Platelet Count 379 K/mcL (140-400); Red Blood Count 4.68 M/mcL (3.82-4.97); Red Cell Distribution Width 14.4 % (11.5-14.5); Segmented Neutrophils % 88.5 %
[2016-10-19 13:21] LABS: BUN/Creatinine Ratio 21 (6-26); Blood Urea Nitrogen 20 mg/dL (7-20); Calcium 9.9 mg/dL (8.6-10.8); Carbon Dioxide 27 mEq/L (19-29); Chloride 103 mEq/L (98-109); Creatine Kinase 326 Units/L (29-168); Glucose 138 mg/dL (70-99); Osmolality,Calculated 301 (280-300); Potassium 3.9 mEq/L (3.5-4.5); Sodium 143 mEq/L (136-145); eGFR For African Americans > 60 (> 60); eGFR For Non-African Americans 59 (> 60)
[2016-10-19] MEDS ORDERED: Vancomycin 1,750 MG in D5% in Water 500 ML IVPB ONE (15:06)
[2016-10-19 15:09] LABS: Amphetamine Screen,Urine Negative ng/mL (Cutoff=1000); Barbiturate Screen,Urine Negative ng/mL (Cutoff=200); Benzodiazepines Screen,Urine Negative ng/mL (Cutoff=200); Cannabinoid Screen,Urine Negative ng/mL (Cutoff = 50); Cocaine Screen,Urine Negative ng/mL (Cutoff= 300); Opiate Screen,Urine Negative ng/mL (Cutoff=300); Phencyclidine Screen,Urine Negative ng/mL (Cutoff=25)
--- NOTE | 2016-10-19 16:26 | Internal Med History&Physical ---
Date of Encounter: 10/19/16 Time of Encounter: 16:22 Assessment and Plan (1) Diabetes Current visit: No Status: Chronic Sliding scale insulin. 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 This is the 2nd time this happens. Suspect an element of depression. She denies suicidal or homicidal thoughts. When asked psychiatry to reevaluate the patient. I have discussed with the patient that she will probably benefit from skilled care for a period of time which will also help with wound care. I will get one done blood cultures. She was slightly hypotensive during my interview in the ER. Give 2 L bolus of normal saline and continue normal saline infusion. I will check one done blood cultures. Telemetry monitoring. I will start the patient on vancomycin and Zosyn (4) Depression Current visit: No Status: Acute Patient mentioned that she is depressed because she lost her job and her family members moved away. Her is in a long-term. I would ask psychiatry to evaluate the patient. She denies any suicidal or homicidal thoughts. Qualifiers: Depression Type: unspecified Qualified Code(s): F32.9 - Major depressive disorder, single episode, unspecified Internal Medicine - H&P: HPI Chief complaint: decub ulcer History of present illness: Ms. Bass is a 61 year old female with history of diabetes mellitus type II on insulin who was just discharged from the hospital 10 days ago after she had presented with a sacral decubitus pressure ulcer related to sitting on the toilet for 5 days at that time, presented to the emergency room with a similar problem. Patient stated that she sat on the toilet for the past 36 hours. She noted open wound in her gluteal area therefore presented to the emergency room. She is not sure why she does that. She feels that she is somewhat weak and appears depressed. She mentions that she is sad because she lost her job and her family moved away. however she denied to me any suicidal or homicidal ideation.. Her has been at long-term. No focal weakness. No recent febrile illnesses. She has not been on antibiotics from recent hospitalization. No fevers or chills. Past Med Surg Social Fam HX - Past Medical History Medical history: diabetes, hyperlipidemia, hypertension, renal disease, thyroid disease Psychiatric history: no psych history - Past Surgical History Surgical History: knee replacement - Social History Smoking Status: Former smoker Smokeless Tobacco Status: No Alcohol use: none Drug use: none - Family History Mother Adopted: No Family Member Ethnicity: Non- Living Status: Hx Family Cardiac Disorders: No Hx Family Respiratory Disorders: No Hx Family Cancer: Yes Hx Family GI Disorders: No Hx Family Endocrine Disorder: No Hx Family Neuromuscular Disorders: No Hx Family Neurologic Disorders: No Hx Family HEENT Disorders: No Hx Family Autoimmune Disorders: No Father Adopted: No Family Member Ethnicity: Non- Living Status: Hx Family Cardiac Disorders: Yes Hx Family Respiratory Disorders: No Hx Family Cancer: Yes Hx Family GI Disorders: No Hx Family Endocrine Disorder: No Hx Family Neuromuscular Disorders: No Hx Family Neurologic Disorders: No Hx Family HEENT Disorders: No Hx Family Autoimmune Disorders: No Internal Medicine - H&P: Meds Acetaminophen [Tylenol Arthritis] 650 mg PO BID PRN 10/07/16 [History] Cyclobenzaprine [Flexeril] 10 mg PO HS 10/07/16 [History] Gabapentin [Neurontin] 300 mg PO TID 10/07/16 [History] Hydrochlorothiazide [Microzide] 12.5 mg PO DAILY 10/07/16 [History] Lovastatin 40 mg PO DAILY 10/07/16 [History] Mv-Mn/FA/Vit K/Lycop/Lut/Coq10 [Daily Multivitamin Capsule] 1 each PO DAILY 08/21 [History] Paricalcitol [Zemplar] 1 mcg PO DAILY 10/07/16 [History] Potassium Chloride [K-Tab ER] 20 meq PO DAILY 10/07/16 [History] Levothyroxine [Synthroid] 25 mcg PO 0630 #30 tablet 10/09/16 [Rx] Levothyroxine [Synthroid] 175 mcg PO 0630 #30 tablet 10/09/16 [Rx] Sertraline [Zoloft] 25 mg PO DAILY #30 tablet 10/09/16 [Rx] Allergies No Known Allergies Allergy (Verified 10/11/16 22:04) All Systems PM: A 10-system review of systems was performed and is negative for pertinent findings except as documented above in the HPI. Review of systems: 10 point review of systems is negative except for HPI - Constitutional Vitals: Temp Pulse Resp BP Pulse Ox 98 F 106 18 140/85 96 10/19/16 12:19 10/19/16 15:43 10/19/16 15:43 10/19/16 15:43 10/19/16 15:43 Exam: Gen.: patient is alert oriented times 3 not in distress. Cardiac: normal S1 S2 no additional sounds were murmurs chest: clear to auscultation. Abdomen: soft nontender nondistended normal bowel sounds. Lower extremity lax calf muscles. Neuro: No focal deficits. Back large decubitus ulcer in the gluteal region Internal Med - H&P Results - Labs CBC & Chem 7: 10/19/16 12:57 10/19/16 12:57
[2016-10-19] MEDS ORDERED: Insulin LISPRO 300 UNITS/3 ML VIAL SQ SCH (16:30)
[2016-10-19] MEDS ORDERED: Vancomycin 1,750 MG in D5% in Water 250 ML IVPB SCH (17:00)
[2016-10-19] MEDS: 0.9 % Sodium Chloride 1,000 ML IVC SCH (18:39)
[2016-10-19] MEDS: Gabapentin 100 MG CAPSULE PO SCH (20:48)
[2016-10-19] MEDS: *HR* Heparin 5,000 UNIT/ML VIAL SQ SCH (20:48)
[2016-10-20] MEDS: Piperacillin/Tazobactam 3.375 GM in D5% in Water (Mini-Bag+) 100 ML IVPB SCH ×4 (00:25→23:59)
[2016-10-20] MEDS ORDERED: Vancomycin 1,750 MG in D5% in Water 500 ML IVPB SCH (04:00)
[2016-10-20 05:48] LABS: Basophils % 0.3 %; Eosinophils # 0.1 K/mcL (0.0-0.6); Eosinophils % 1.9 %; Hemoglobin 11.6 g/dL (11.5-15.4); Immature Granulocytes % 0.7 % (0-4); Mean Corpuscular HGB Conc 31.4 g/dL (31.6-35.5); Mean Corpuscular Hemoglobin 29.6 pg (28.0-33.3); Mean Corpuscular Volume 94.4 fL (83.0-100.0); Mean Platelet Volume 10.8 fL (9.4-12.4); Monocytes # 0.4 K/mcL (0.0-1.3); Monocytes % 5.1 %; Neutrophils # 5.7 K/mcL (1.6-8.9); Platelet Count 289 K/mcL (140-400); Red Blood Count 3.92 M/mcL (3.82-4.97); Red Cell Distribution Width 14.5 % (11.5-14.5)
[2016-10-20 06:06] LABS: BUN/Creatinine Ratio 19 (6-26); Blood Urea Nitrogen 15 mg/dL (7-20); Carbon Dioxide 25 mEq/L (19-29); Chloride 106 mEq/L (98-109); Creatine Kinase 126 Units/L (29-168); Glucose 167 mg/dL (70-99); Magnesium 1.5 mg/dL (1.6-2.6); Osmolality,Calculated 293 (280-300); Potassium 2.9 mEq/L (3.5-4.5); Sodium 139 mEq/L (136-145); eGFR For African Americans > 60 (> 60); eGFR For Non-African Americans > 60 (> 60)
[2016-10-20] MEDS: *HR* Heparin 5,000 UNIT/ML VIAL SQ SCH ×3 (06:33→20:39)
[2016-10-20] MEDS: Gabapentin 100 MG CAPSULE PO SCH ×3 (08:37→20:40)
[2016-10-20] MEDS: Insulin LISPRO 300 UNITS/3 ML VIAL SQ SCH ×3 (08:39→16:43)
--- NOTE | 2016-10-20 11:42 | Electrocardiograph Report ---
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
[2016-10-20] MEDS ORDERED: Magnesium Sulfate 2 GM in D5% in Water 100 ML IVPB ONE (11:51)
[2016-10-20] MEDS: 0.9 % Sodium Chloride 1,000 ML IVC SCH (14:41)
--- NOTE | 2016-10-20 14:42 | Internal Med Progress Note ---
Date of Encounter: 10/20/16 Time of Encounter: 11:45 - Assessment and plan (1) Wound cellulitis Current Visit: Yes Status: Acute Assessment and plan: Continue antibiotics. Local wound care. Patient may need placement to skilled rehabilitation. dry drug worker consulted. (2) Depression Current Visit: Yes Status: Acute Assessment and plan: Patient severely depressed. Consulted psychiatry. Had previously been placed on Zoloft but did not fill and take medication. We will follow psychiatric recommendations. Qualifiers: Depression Type: major depressive disorder Major depression recurrence: recurrent Active/Remission status: currently active Major depression episode severity: severe Psychotic features: without psychotic features Qualified Code(s): F33.2 - Major depressive disorder, recurrent severe without psychotic features (3) Hypothyroid Current Visit: No Status: Chronic Assessment and plan: Continue levothyroxine Qualifiers: Hypothyroidism type: unspecified Qualified Code(s): E03.9 - Hypothyroidism , unspecified (4) Diabetes Current Visit: No Status: Chronic Assessment and plan: Fairly controlled. Continue monitoring blood sugars and continue sliding scale insulin. 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 She denies any suicidal ideation. Does have some discomfort in her gluteal region related to her decubitus ulcer. No fever chills or night sweats. No nausea or vomiting. - Constitutional Vitals: Temp Pulse Resp BP Pulse Ox 97.8 F 92 15 103/68 97 10/20/16 11:01 10/20/16 11:01 10/20/16 11:01 10/20/16 11:01 10/20/16 11:01 General appearance: Present: cooperative, A&O X 3, obese, answers questions appropriately - Respiratory Respiratory exam: Present: CTAB. Absent: accessory muscle use, rales, rhonchi, wheezes - Cardiovascular Cardiovascular exam: Present: RRR, +S1, +S2. Absent: diastolic murmur, gallop, rubs, systolic murmur - GI/Abdominal GI/Abdominal exam: Present: normal bowel sounds, soft, no peritoneal signs. Absent: distended, tenderness - Extremities Exam Extremities exam: Present: warm, radial pulses palpable and symetrical. Absent : calf tenderness, cyanotic, pedal edema - Neurological Exam Neurological exam: Present: alert, oriented X3, no focal deficits. Absent: facial droop, speech deficit - Psychiatric Psychiatric exam: Present: depressed, flat affect - Skin Skin exam: Present: dry, intact Additional comments: Decubitus ulcers noted in the left gluteal region. Currently bandaged. Internal Medicine: Result - Labs CBC & Chem 7: 10/20/16 04:52 10/20/16 04:52 Labs: Short CBC 10/20/16 Range/Units 04:52 WBC 7.3 (4.3-11.1) K/mcL Hgb 11.6 D (11.5-15.4) g/dL Hct 37.0 (35.3-44.9) % Plt Count 289 (140-400) K/mcL Neutrophils # 5.7 (1.6-8.9) K/mcL BMP 10/20/16 04:52 Sodium 139 Potassium 2.9 L D Chloride 106 Carbon Dioxide 25 BUN 15 Creatinine 0.78 Glucose 167 H Calcium 8.0 L D - VTE Documentation of Mechanical Device: Intermittent pneumatic compression device Consult Discharge Plan - Plan Referrals: Marielos Awad MD [Primary Care Provider] - 10/30/16 8:45 am - Attending Attestation This document has been at least partially created by [employer] recognition technology by Dr. Gonzalez. Errors in grammar, wording or other phrases may exist. If errors are found after the documentation is signed, they will be addressed individually in the addendum section of this document when appropriate.
--- NOTE | 2016-10-20 14:59 | Consult Note ---
Date of Encounter: 10/20/16 Time of Encounter: 14:40 Assessment & Recommendation (1) Depression Current visit: No Status: Acute Assessment & Recommendation: Patient is experiencing situational depressive episodes related to placement of her in a correction and feeling overwhelmed. She has no past psychiatric treatment and no past suicide attempts. Patient would benefit from taking medication like Zoloft already ordered for her and I encouraged her to start taking it also she may benefit from individual therapy or counseling and she has information related to outpatient mental health that she can use. Patient is stable from psychiatric standpoint and she can be discharged when medically stabilized. Thank you for consultation. Qualifiers: Depression Type: unspecified Qualified Code(s): F32.9 - Major depressive disorder, single episode, unspecified History of Present Illness Patient: new to practice Requesting Physician: Phoebe Gonzalez MD Reason for consult: Depression History of present illness: Ms. Bass is a 61 year old female admitted to the hospital for treatment of multiple condition including diabetes type 2 was complication diabetic ulcer and cellulitis, hypothyroidism and infected wound. Surgical consultation was requested to evaluate depression. Patient had no previous psychiatric treatment for depression and anxiety and her last admission to the hospital she was prescribed Zoloft 25 mg but she did not fill the prescription Cardona medicine. Patient described her depression as being situational her was placed in a correction in the last couple months and she is worried about his condition and his health and at times she feels worried and overwhelmed. She denied having any problem with sleep or appetite denied having any suicidal thoughts or hopelessness. 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 She was given information regarding the mental health outpatient services but she did not follow on this information and I encourage her to look for a therapist or counselor that she can see on a regular basis and also encouraged her to fill her prescription of Zoloft and start taking the medicine at 50 mg daily. Patient does not smoke and denies any use of alcohol or drugs. CC: Phoebe Gonzalez MD Past Med Surg Social Fam HX - Past Medical History Medical history: diabetes, hyperlipidemia, hypertension, renal disease, thyroid disease - Past Psychiatric History Psychiatric history: Reports: no psych history - Past Surgical History Surgical History: knee replacement - Social History Smoking Status: Former smoker Smokeless Tobacco Status: No Alcohol use: none Drug use: none - Family History Mother Adopted: No Family Member Ethnicity: Non- Living Status: Hx Family Cardiac Disorders: No Hx Family Respiratory Disorders: No Hx Family Cancer: Yes Hx Family GI Disorders: No Hx Family Endocrine Disorder: No Hx Family Neuromuscular Disorders: No Hx Family Neurologic Disorders: No Hx Family HEENT Disorders: No Hx Family Autoimmune Disorders: No Father History Unknown: Yes Adopted: No Family Member Ethnicity: Non- Living Status: Hx Family Cardiac Disorders: Yes Hx Family Respiratory Disorders: No Hx Family Cancer: Yes Hx Family GI Disorders: No Hx Family Endocrine Disorder: No Hx Family Neuromuscular Disorders: No Hx Family Neurologic Disorders: No Hx Family HEENT Disorders: No Hx Family Autoimmune Disorders: No Medications & Allergies Acetaminophen [Tylenol Arthritis] 650 mg PO BID PRN 10/07/16 [History] Cyclobenzaprine [Flexeril] 10 mg PO HS 10/07/16 [History] Gabapentin [Neurontin] 300 mg PO TID 10/07/16 [History] Hydrochlorothiazide [Microzide] 12.5 mg PO DAILY 10/07/16 [History] Lovastatin 40 mg PO DAILY 10/07/16 [History] Mv-Mn/FA/Vit K/Lycop/Lut/Coq10 [Daily Multivitamin Capsule] 1 each PO DAILY 08/21 [History] Paricalcitol [Zemplar] 1 mcg PO DAILY 10/07/16 [History] Potassium Chloride [K-Tab ER] 20 meq PO DAILY 10/07/16 [History] Levothyroxine Sodium 200 mcg PO DAILY 10/19/16 [History] Allergies No Known Allergies Allergy (Verified 10/11/16 22:04) Mental Status Exam Patient orientation: Yes Person, Yes Time, Yes Place Level of alertness: Alert Patient appearance: Appropriate, Well Groomed, Obese Behavior: calm, cooperative, guarded Psychomotor activity: Normal Eye contact: Maintains Eye Contact Mood description: Euthymic/stable Affect description: congruent with mood, full range Speech pattern: Normal rate, Normal rhythm, Normal tone Speech volume: Normal Thought process: Linear, Goal Oriented Thought content: No Suicidal ideation, No Homicidal ideation, No Overt delusions Perceptual disturbances: No Auditory hallucinations, No Visual hallucinations Attention span: Capable of Focused Attention Memory description: Grossly Intact Patient reliability: Reliable Historian Intelligence estimate: Average Judgment: Limited Insight: Partial Results - Vital Signs Vital signs: Temp Pulse Resp BP Pulse Ox 97.8 F 92 15 103/68 97 10/20/16 11:01 10/20/16 11:01 10/20/16 11:01 10/20/16 11:01 10/20/16 11:01 - Labs Labs: Laboratory Last Values WBC 7.3 K/mcL (4.3-11.1) 10/20/16 04:52 RBC 3.92 M/mcL (3.82-4.97) 10/20/16 04:52 Hgb 11.6 g/dL (11.5-15.4) D 10/20/16 04:52 Hct 37.0 % (35.3-44.9) 10/20/16 04:52 MCV 94.4 fL (83.0-100.0) 10/20/16 04:52 MCH 29.6 pg (28.0-33.3) 10/20/16 04:52 MCHC 31.4 g/dL (31.6-35.5) L 10/20/16 04:52 RDW 14.5 % (11.5-14.5) 10/20/16 04:52 Plt Count 289 K/mcL (140-400) 10/20/16 04:52 MPV 10.8 fL (9.4-12.4) 10/20/16 04:52 Immature Gran % 0.7 % (0-4) 10/20/16 04:52 Seg Neutrophils % 78.0 % 10/20/16 04:52 Lymphocytes % 14.0 % 10/20/16 04:52 Monocytes % 5.1 % 10/20/16 04:52 Eosinophils % 1.9 % 10/20/16 04:52 Basophils % 0.3 % 10/20/16 04:52 Neutrophils # 5.7 K/mcL (1.6-8.9) 10/20/16 04:52 Lymphocytes # 1.0 K/mcL (0.6-4.6) 10/20/16 04:52 Monocytes # 0.4 K/mcL (0.0-1.3) 10/20/16 04:52 Eosinophils # 0.1 K/mcL (0.0-0.6) 10/20/16 04:52 Basophils # 0.0 K/mcL (0.0-0.2) 10/20/16 04:52 Sodium 139 mEq/L (136-145) 10/20/16 04:52 Potassium 2.9 mEq/L (3.5-4.5) L D 10/20/16 04:52 Chloride 106 mEq/L (98-109) 10/20/16 04:52 Carbon Dioxide 25 mEq/L (19-29) 10/20/16 04:52 BUN 15 mg/dL (7-20) 10/20/16 04:52 Creatinine 0.78 mg/dL (0.57-1.11) 10/20/16 04:52 Est GFR ( Amer) > 60 (> 60) 10/20/16 04:52 Est GFR (Non-Af Amer) > 60 (> 60) 10/20/16 04:52 BUN/Creatinine Ratio 19 (6-26) 10/20/16 04:52 Glucose 167 mg/dL (70-99) H 10/20/16 04:52 POC Glucose 149 (58-89) H 10/20/16 11:00 Calculated Osmolality 293 (280-300) 10/20/16 04:52 Calcium 8.0 mg/dL (8.6-10.8) L D 10/20/16 04:52 Magnesium 1.5 mg/dL (1.6-2.6) L 10/20/16 04:52 Creatine Kinase 126 Units/L (29-168) 10/20/16 04:52 Urine Opiates Screen Negative ng/mL (Zyelod=397) 10/19/16 14:55 Ur Barbiturates Screen Negative ng/mL (Waxqkz=647) 10/19/16 14:55 Ur Phencyclidine Scrn Negative ng/mL (Cutoff=25) 10/19/16 14:55 Ur Amphetamines Screen Negative ng/mL (Nbfkfh=7988) 10/19/16 14:55 U Benzodiazepines Scrn Negative ng/mL (Ufhuub=000) 10/19/16 14:55 Urine Cocaine Screen Negative ng/mL (Cutoff= 300) 10/19/16 14:55 U Marijuana (THC) Screen Negative ng/mL (Cutoff = 50) 10/19/16 14:55 Consult Discharge Plan - Plan Referrals: Marielos Awad MD [Primary Care Provider] - 10/30/16 8:45 am
[2016-10-21] MEDS: 0.9 % Sodium Chloride 1,000 ML IVC SCH
[2016-10-21] MEDS: Vancomycin 1,250 MG in D5% in Water 250 ML IVPB SCH ×2 (04:50→15:51)
[2016-10-21] MEDS: *HR* Heparin 5,000 UNIT/ML VIAL SQ SCH ×3 (06:33→22:09)
[2016-10-21] MEDS: Insulin LISPRO 300 UNITS/3 ML VIAL SQ SCH ×3 (08:27→15:44)
[2016-10-21] MEDS: Gabapentin 100 MG CAPSULE PO SCH ×3 (08:27→20:15)
[2016-10-21] MEDS: Piperacillin/Tazobactam 3.375 GM in D5% in Water (Mini-Bag+) 100 ML IVPB SCH ×3 (08:28→23:29)
[2016-10-21 08:53] LABS: BUN/Creatinine Ratio 12 (6-26); Blood Urea Nitrogen 10 mg/dL (7-20); Calcium 8.3 mg/dL (8.6-10.8); Carbon Dioxide 24 mEq/L (19-29); Chloride 105 mEq/L (98-109); Glucose 116 mg/dL (70-99); Osmolality,Calculated 284 (280-300); Potassium 3.3 mEq/L (3.5-4.5); Sodium 137 mEq/L (136-145); eGFR For African Americans > 60 (> 60); eGFR For Non-African Americans > 60 (> 60)
--- NOTE | 2016-10-21 10:42 | Internal Med Progress Note ---
Date of Encounter: 10/21/16 Time of Encounter: 10:42 - Assessment and plan (1) Depression Current Visit: Yes Status: Chronic Assessment and plan: Severe, with failure to thrive and inability to care for herself Psych eval noted Continue ZOloft Patient will benefit from SNF/assisted living facility at time of discharge Qualifiers: Depression Type: major depressive disorder Major depression recurrence: recurrent Active/Remission status: currently active Major depression episode severity: severe Psychotic features: without psychotic features Qualified Code(s): F33.2 - Major depressive disorder, recurrent severe without psychotic features (2) Diabetes Current Visit: Yes Status: Chronic Assessment and plan: Fairly controlled. Continue monitoring blood sugars and continue sliding scale insulin. Qualifiers: Diabetes mellitus type: type 2 Diabetes mellitus complication status: with kidney complications Diabetes mellitus complication detail: with chronic kidney disease Diabetes mellitus buttermaker insulin use: without skilled nursing use Chronic kidney disease stage: stage 3 (moderate) Qualified Code(s): E11.22 - Type 2 diabetes mellitus with diabetic chronic kidney disease; N18.3 - Chronic kidney disease, stage 3 (moderate) (3) Hypothyroid Current Visit: Yes Status: Chronic Assessment and plan: Continue levothyroxine Check TSH Qualifiers: Hypothyroidism type: unspecified Qualified Code(s): E03.9 - Hypothyroidism , unspecified (4) Cellulitis Current Visit: Yes Status: Acute Assessment and plan: Obtain wound culture STAT Continue Vancomycin and Zosyn, Vabco trough supratheraputic 10/20, continue to monitor High risk due to use of vancomycin Follow cultures and de-escalate prn Qualifiers: Site of cellulitis: extremity Site of cellulitis of extremity: lower extremity Laterality: right Qualified Code(s): L03.115 - Cellulitis of right lower limb (5) CKD (chronic kidney disease) Current Visit: Yes Status: Chronic Assessment and plan: Cr stable and at baseline patient is on vanco, monitor chem Qualifiers: Chronic kidney disease stage: stage 3 (moderate) Qualified Code(s): N18.3 - Chronic kidney disease, stage 3 (moderate) (6) Sacral decubitus ulcer, stage II Current Visit: Yes Status: Acute Assessment and plan: Continue wound dressing (7) Hypokalemia Current Visit: Yes Status: Acute Assessment and plan: Replaced, continue to monitor - Subjective Interval history: 61 F Being managed for severe depression and cellulitis of decubitus ulcers acquired from sitting on the toilet seat for 36 hrs Seen at bedside , flat affect Denies new complains Psych eval noted, patient is cleared by them She is on vanco and Zosyn. Obtain wound culture today Prelim blood culture negative - Constitutional Vitals: Temp Pulse Resp BP Pulse Ox 98.0 F 72 16 122/77 96 10/21/16 07:02 10/21/16 07:02 10/21/16 07:02 10/21/16 07:02 10/21/16 07:02 VSS Morbidly obese, in no form of distress Speaks full sentences, alert, awake and oriented X3 Flat affect, slow speech No facial droop, no speech deficits, moves all limbs. Chest is clear to auscultation bilaterally heart sounds S1, s2. Abdomen is soft, obese, not tender, no palpably enlarged organs Extremities with no edema : Stage II pressure ulcers in the shape of toilet bowl shape X2 with multiple deep wounds , some slough and surrounding cellulitis General appearance: Present: cooperative, A&O X 3, obese, answers questions appropriately Internal Medicine: Result - Labs CBC & Chem 7: 10/20/16 04:52 10/21/16 08:35 Labs: BMP 10/21/16 08:35 Sodium 137 Potassium 3.3 L Chloride 105 Carbon Dioxide 24 BUN 10 Creatinine 0.85 Glucose 116 H Calcium 8.3 L - VTE Documentation of Mechanical Device: Intermittent pneumatic compression device Consult Discharge Plan - Plan Referrals: Marielos Awad MD [Primary Care Provider] - 10/30/16 8:45 am
--- NOTE | 2016-10-21 13:22 | General Surgery Consult Note ---
Date of Encounter: 10/21/16 Time of Encounter: 13:00 Assessment and Plan (1) Pressure ulcer of buttock, unstageable Current Visit: Yes Status: Acute Bilateral buttock wounds- Continue daily wound care per orders written by Sara Soto Continue with Marlene for enzymatic debridement at this time Will likely need serial sharp debridements in upcoming weeks Would recommend outpatient follow-up in wound care for wound care management and debridement Turn every 2 hours Pressure reduction mattress Qualifiers: Laterality: unspecified laterality Qualified Code(s): L89.300 - Pressure ulcer of unspecified buttock, unstageable (2) Sacral decubitus ulcer, stage II Current Visit: Yes Status: Acute Would recommend outpatient follow-up in wound care for wound care management and debridement Turn every 2 hours Pressure reduction mattress History of Present Illness Consult date: 10/21/16 Requesting physician: Phoebe Gonzalez History of present illness: Mrs. Bass is a 61 year old female with a past medical history significant for diabetes mellitus, obesity, hypertension, hyperlipidemia, hypothyroidism and renal disease. She presented to the ED with complaints of weakness and pressure wounds to bilateral buttock. She was recently admitted to the hospital for similar complaints. She states that she sustained pressure wounds from sitting on the toilet for too long of a period of time. She states that the wounds were healed until she fell asleep on the toile this week. She states that she was unable to get up for 36 hours. She states that she is increasingly becoming more weak. Denies any fevers/chills. Denies any syncopal episodes of dizziness. Denies any shortness of breath of chest pains. We have been asked to see and evaluate the patient for wound care recommendations. Past Med Surg Social Fam HX - Past Medical History Source: patient, old records reviewed Medical history: diabetes, hyperlipidemia, hypertension, renal disease, thyroid disease, other (DDD, Neuropathy, RLS) Psychiatric history: no psych history - Past Surgical History Surgical History: knee replacement, other (Bilateral Carpel Tunnel Release; tubal ligation) - Social History Smoking Status: Former smoker Smokeless Tobacco Status: No Alcohol use: none Drug use: none Occupational status: unemployed Current living situation: Home - Family History Mother Adopted: No Family Member Ethnicity: Non- Living Status: Hx Family Cardiac Disorders: No Hx Family Respiratory Disorders: No Hx Family Cancer: Yes Hx Family GI Disorders: No Hx Family Endocrine Disorder: No Hx Family Neuromuscular Disorders: No Hx Family Neurologic Disorders: No Hx Family HEENT Disorders: No Hx Family Autoimmune Disorders: No Father History Unknown: Yes Adopted: No Family Member Ethnicity: Non- Living Status: Hx Family Cardiac Disorders: Yes Hx Family Respiratory Disorders: No Hx Family Cancer: Yes Hx Family GI Disorders: No Hx Family Endocrine Disorder: No Hx Family Neuromuscular Disorders: No Hx Family Neurologic Disorders: No Hx Family HEENT Disorders: No Hx Family Autoimmune Disorders: No Medications and Allergies Acetaminophen [Tylenol Arthritis] 650 mg PO BID PRN 10/07/16 [History] Cyclobenzaprine [Flexeril] 10 mg PO HS 10/07/16 [History] Gabapentin [Neurontin] 300 mg PO TID 10/07/16 [History] Hydrochlorothiazide [Microzide] 12.5 mg PO DAILY 10/07/16 [History] Lovastatin 40 mg PO DAILY 10/07/16 [History] Mv-Mn/FA/Vit K/Lycop/Lut/Coq10 [Daily Multivitamin Capsule] 1 each PO DAILY 08/21 [History] Paricalcitol [Zemplar] 1 mcg PO DAILY 10/07/16 [History] Potassium Chloride [K-Tab ER] 20 meq PO DAILY 10/07/16 [History] Levothyroxine Sodium 200 mcg PO DAILY 10/19/16 [History] Allergies No Known Allergies Allergy (Verified 10/11/16 22:04) Review of Systems All systems PM: reviewed and no additional remarkable complaints except as stated (in the HPI) All systems PM: A 10-system review of systems was performed and is negative for pertinent findings except as documented above in the HPI. General Surgery Exam Initial Vital Signs Temp Pulse Resp BP Pulse Ox 98 F 102 16 125/62 96 10/19/16 12:19 10/19/16 12:19 10/19/16 12:19 10/19/16 12:19 10/19/16 12:19 - General physical appearance well developed, well nourished, no distress, moderate pain - Eyes normal ocular movement - ENT normal mucosa, atraumatic, normocephalic - Neck trachea midline - Respiratory normal respiratory effort, clear to auscultation - Cardiovascular Cardiovascular exam: Present: RRR - Abdomen Abdomen general surgery: Present: bowel sounds present, soft, non tender - Integumentary Integumentary general surgery: Present: warm and dry, other (She has a Stage 2 pressure injury to the entire sacral area which measures 8cm x 8cm - is 0.2cm deep with a red wound bed weeping yellow serous fluid. She has a ring around her buttocks that is in the exact shape of a toilet seat that has left unstageable pressures injuries. The ring varies from 1.5cm wide to 2cm wide and is a combination of fibrin and necrotic tissue, small amount of serous Drainage noted without odor. ) - Neurologic Present: CN 2-12 grossly intact - Musculoskeletal Present: other (deconditioning noted) - Psychiatric Psychiatric general surgery: Present: appropriate, oriented to person, oriented to place, oriented to time, speech is normal, memory intact Exam Initial Vital Signs Temp Pulse Resp BP Pulse Ox 98 F 102 16 125/62 96 10/19/16 12:19 10/19/16 12:19 10/19/16 12:19 10/19/16 12:19 10/19/16 12:19 Results - Labs 10/20/16 04:52 10/21/16 08:35 Abnormal lab results MCHC 31.4 g/dL (31.6-35.5) L 10/20/16 04:52 Potassium 3.3 mEq/L (3.5-4.5) L 10/21/16 08:35 Glucose 116 mg/dL (70-99) H 10/21/16 08:35 POC Glucose 121 (58-89) H 10/21/16 11:24 Calcium 8.3 mg/dL (8.6-10.8) L 10/21/16 08:35 Magnesium 1.5 mg/dL (1.6-2.6) L 10/20/16 04:52 Vancomycin Trough 25.1 mcg/mL (10-20) H* 10/20/16 14:34 Diabetes panel 10/21/16 Range/Units 08:35 Sodium 137 (136-145) mEq/L Potassium 3.3 L (3.5-4.5) mEq/L Chloride 105 (98-109) mEq/L Carbon Dioxide 24 (19-29) mEq/L BUN 10 (7-20) mg/dL Creatinine 0.85 (0.57-1.11) mg/dL Glucose 116 H (70-99) mg/dL Calcium 8.3 L (8.6-10.8) mg/dL Calcium panel 10/21/16 Range/Units 08:35 Calcium 8.3 L (8.6-10.8) mg/dL Pituitary panel 10/21/16 Range/Units 08:35 Sodium 137 (136-145) mEq/L Potassium 3.3 L (3.5-4.5) mEq/L Chloride 105 (98-109) mEq/L Carbon Dioxide 24 (19-29) mEq/L BUN 10 (7-20) mg/dL Creatinine 0.85 (0.57-1.11) mg/dL Glucose 116 H (70-99) mg/dL Calcium 8.3 L (8.6-10.8) mg/dL Adrenal panel 10/21/16 Range/Units 08:35 Sodium 137 (136-145) mEq/L Potassium 3.3 L (3.5-4.5) mEq/L Chloride 105 (98-109) mEq/L Carbon Dioxide 24 (19-29) mEq/L BUN 10 (7-20) mg/dL Creatinine 0.85 (0.57-1.11) mg/dL Glucose 116 H (70-99) mg/dL Calcium 8.3 L (8.6-10.8) mg/dL All other labs normal. Consult Discharge Plan - Plan Referrals: Marielos Awad MD [Primary Care Provider] - 10/30/16 8:45 am
[2016-10-22] MEDS: Vancomycin 1,250 MG in D5% in Water 250 ML IVPB SCH ×2 (03:56→16:09)
[2016-10-22] MEDS: *HR* Heparin 5,000 UNIT/ML VIAL SQ SCH ×3 (05:41→21:03)
[2016-10-22 06:56] LABS: BUN/Creatinine Ratio 9 (6-26); Blood Urea Nitrogen 8 mg/dL (7-20); Calcium 8.2 mg/dL (8.6-10.8); Carbon Dioxide 23 mEq/L (19-29); Chloride 107 mEq/L (98-109); Glucose 145 mg/dL (70-99); Osmolality,Calculated 285 (280-300); Potassium 3.3 mEq/L (3.5-4.5); Sodium 137 mEq/L (136-145); eGFR For African Americans > 60 (> 60); eGFR For Non-African Americans > 60 (> 60)
[2016-10-22] MEDS: Gabapentin 100 MG CAPSULE PO SCH ×3 (07:43→21:03)
[2016-10-22] MEDS: Insulin LISPRO 300 UNITS/3 ML VIAL SQ SCH ×3 (07:44→16:11)
[2016-10-22] MEDS: Piperacillin/Tazobactam 3.375 GM in D5% in Water (Mini-Bag+) 100 ML IVPB SCH ×2 (07:44→17:49)
--- NOTE | 2016-10-22 10:26 | Internal Med Progress Note ---
Date of Encounter: 10/22/16 Time of Encounter: 10:26 - Assessment and plan (1) Depression Current Visit: Yes Status: Chronic Assessment and plan: Severe, with anhedonia Psych eval noted Continue ZOloft Patient will benefit from SNF/assisted living facility at time of discharge Qualifiers: Depression Type: major depressive disorder Major depression recurrence: recurrent Active/Remission status: currently active Major depression episode severity: severe Psychotic features: without psychotic features Qualified Code(s): F33.2 - Major depressive disorder, recurrent severe without psychotic features (2) Diabetes Current Visit: Yes Status: Chronic Assessment and plan: Fairly controlled. Continue monitoring blood sugars and continue sliding scale insulin. Qualifiers: Diabetes mellitus type: type 2 Diabetes mellitus complication status: with kidney complications Diabetes mellitus complication detail: with chronic kidney disease Diabetes mellitus superintendent terminal insulin use: without superintendent terminal use Chronic kidney disease stage: stage 3 (moderate) Qualified Code(s): E11.22 - Type 2 diabetes mellitus with diabetic chronic kidney disease; N18.3 - Chronic kidney disease, stage 3 (moderate) (3) Hypothyroid Current Visit: Yes Status: Chronic Assessment and plan: Continue levothyroxine TSH 27 (56 on admission) Qualifiers: Hypothyroidism type: unspecified Qualified Code(s): E03.9 - Hypothyroidism , unspecified (4) Cellulitis Current Visit: Yes Status: Acute Assessment and plan: Follow wound culture Continue Vancomycin and Zosyn, Vabco trough supratheraputic 10/20, continue to monitor High risk due to use of vancomycin Follow cultures and de-escalate prn Qualifiers: Site of cellulitis: extremity Site of cellulitis of extremity: lower extremity Laterality: right Qualified Code(s): L03.115 - Cellulitis of right lower limb (5) CKD (chronic kidney disease) Current Visit: Yes Status: Chronic Assessment and plan: Cr stable and at baseline patient is on vanco, monitor chem Qualifiers: Chronic kidney disease stage: stage 3 (moderate) Qualified Code(s): N18.3 - Chronic kidney disease, stage 3 (moderate) (6) Sacral decubitus ulcer, stage II Current Visit: Yes Status: Acute Assessment and plan: Continue wound dressing (7) Hypokalemia Current Visit: Yes Status: Acute Assessment and plan: Replaced, continue to monitor - Subjective Interval history: 61 F Being managed for severe depression and cellulitis of decubitus ulcers acquired from sitting on the toilet seat for 36 hrs Seen at bedside , reports feeling better today she has a smile on her face and looks improved mentally and physically TSH improved from 56 to 20s Will titrate Synthroid up Awaiting wound culture reports She is on vanco and Zosyn. - Constitutional Vitals: Temp Pulse Resp BP Pulse Ox 98.0 F 76 16 136/82 95 10/22/16 07:13 10/22/16 07:13 10/22/16 07:13 10/22/16 07:13 10/22/16 07:13 VSS Morbidly obese, in no form of distress Speaks full sentences, alert, awake and oriented X3 Flat affect, slow speech No facial droop, no speech deficits, moves all limbs. Chest is clear to auscultation bilaterally heart sounds S1, s2. Abdomen is soft, obese, not tender, no palpably enlarged organs Extremities with no edema : Stage II pressure ulcers in the shape of toilet bowl shape X2 with multiple deep wounds , some slough and surrounding cellulitis General appearance: Present: cooperative, A&O X 3, obese, answers questions appropriately Internal Medicine: Result - Labs CBC & Chem 7: 10/20/16 04:52 10/22/16 05:46 Labs: BMP 10/22/16 05:46 Sodium 137 Potassium 3.3 L Chloride 107 Carbon Dioxide 23 BUN 8 Creatinine 0.85 Glucose 145 H Calcium 8.2 L - VTE Documentation of Mechanical Device: Intermittent pneumatic compression device Consult Discharge Plan - Plan Referrals: Marielos Awad MD [Primary Care Provider] - 10/30/16 8:45 am
[2016-10-22] MEDS: Lactobacillus 1 EACH CAP.SPRINK PO SCH ×2 (12:09→21:03)
[2016-10-23] MEDS: Piperacillin/Tazobactam 3.375 GM in D5% in Water (Mini-Bag+) 100 ML IVPB SCH ×3 (00:02→17:35)
[2016-10-23 03:06] LABS: BUN/Creatinine Ratio 8 (6-26); Blood Urea Nitrogen 7 mg/dL (7-20); Calcium 8.5 mg/dL (8.6-10.8); Carbon Dioxide 22 mEq/L (19-29); Chloride 107 mEq/L (98-109); Glucose 119 mg/dL (70-99); Osmolality,Calculated 283 (280-300); Potassium 4.2 mEq/L (3.5-4.5); Sodium 137 mEq/L (136-145); eGFR For African Americans > 60 (> 60); eGFR For Non-African Americans > 60 (> 60)
[2016-10-23] MEDS: *HR* Heparin 5,000 UNIT/ML VIAL SQ SCH ×3 (05:37→20:41)
[2016-10-23] MEDS: Gabapentin 100 MG CAPSULE PO SCH ×3 (09:05→20:41)
[2016-10-23] MEDS: Lactobacillus 1 EACH CAP.SPRINK PO SCH ×2 (09:05→20:41)
[2016-10-23] MEDS: Insulin LISPRO 300 UNITS/3 ML VIAL SQ SCH ×3 (09:07→17:47)
--- NOTE | 2016-10-23 10:45 | Internal Med Progress Note ---
Date of Encounter: 10/23/16 Time of Encounter: 10:43 - Assessment and plan (1) Depression Current Visit: Yes Status: Chronic Assessment and plan: Severe, with anhedonia Psych eval noted Continue ZOloft Patient will benefit from SNF/assisted living facility at time of discharge Qualifiers: Depression Type: major depressive disorder Major depression recurrence: recurrent Active/Remission status: currently active Major depression episode severity: severe Psychotic features: without psychotic features Qualified Code(s): F33.2 - Major depressive disorder, recurrent severe without psychotic features (2) Diabetes Current Visit: Yes Status: Chronic Assessment and plan: Fairly controlled. Continue monitoring blood sugars and continue sliding scale insulin. Qualifiers: Diabetes mellitus type: type 2 Diabetes mellitus complication status: with kidney complications Diabetes mellitus complication detail: with chronic kidney disease Diabetes mellitus intermediate school teacher insulin use: without intermediate school teacher use Chronic kidney disease stage: stage 3 (moderate) Qualified Code(s): E11.22 - Type 2 diabetes mellitus with diabetic chronic kidney disease; N18.3 - Chronic kidney disease, stage 3 (moderate) (3) Hypothyroid Current Visit: Yes Status: Chronic Assessment and plan: Continue levothyroxine TSH 27 (56 on admission) Qualifiers: Hypothyroidism type: unspecified Qualified Code(s): E03.9 - Hypothyroidism , unspecified (4) Cellulitis Current Visit: Yes Status: Acute Assessment and plan: Follow wound culture Continue Zosyn D.C Vanco Wound culture with GNR Follow sensitivity Qualifiers: Site of cellulitis: extremity Site of cellulitis of extremity: lower extremity Laterality: right Qualified Code(s): L03.115 - Cellulitis of right lower limb (5) CKD (chronic kidney disease) Current Visit: Yes Status: Chronic Assessment and plan: Cr stable and at baseline Qualifiers: Chronic kidney disease stage: stage 3 (moderate) Qualified Code(s): N18.3 - Chronic kidney disease, stage 3 (moderate) (6) Sacral decubitus ulcer, stage II Current Visit: Yes Status: Acute Assessment and plan: Continue wound dressing (7) Hypokalemia Current Visit: Yes Status: Acute Assessment and plan: Replaced, continue to monitor - Subjective Interval history: 61 F Being managed for severe depression and cellulitis of decubitus ulcers acquired from sitting on the toilet seat for 36 hrs Seen and evaluated at bedside No new complains Wound culture with GNR, sensitivity pending D/C Vancomycin - Constitutional Vitals: Temp Pulse Resp BP Pulse Ox 97.8 F 73 12 108/68 96 10/23/16 10:42 10/23/16 10:42 10/23/16 10:42 10/23/16 10:42 10/23/16 10:42 VSS Morbidly obese, in no form of distress Speaks full sentences, alert, awake and oriented X3 Flat affect, slow speech No facial droop, no speech deficits, moves all limbs. Chest is clear to auscultation bilaterally heart sounds S1, s2. Abdomen is soft, obese, not tender, no palpably enlarged organs Extremities with no edema : Stage II pressure ulcers in the shape of toilet bowl shape X2 with multiple deep wounds , some slough and surrounding cellulitis General appearance: Present: cooperative, A&O X 3, obese, answers questions appropriately Internal Medicine: Result - Labs CBC & Chem 7: 10/20/16 04:52 10/23/16 02:45 Labs: BMP 10/22/16 10/23/16 16:18 02:45 Sodium 137 Potassium 4.2 4.2 Chloride 107 Carbon Dioxide 22 BUN 7 Creatinine 0.90 Glucose 119 H Calcium 8.5 L - VTE Documentation of Mechanical Device: Intermittent pneumatic compression device Consult Discharge Plan - Plan Referrals: Marielos Awad MD [Primary Care Provider] - 10/30/16 8:45 am
[2016-10-23] MEDS: Acetaminophen 325 MG TABLET PO PRN (18:21)
[2016-10-24] MEDS: Piperacillin/Tazobactam 3.375 GM in D5% in Water (Mini-Bag+) 100 ML IVPB SCH ×3 (00:02→09:01)
[2016-10-24] MEDS: *HR* Heparin 5,000 UNIT/ML VIAL SQ SCH (05:26)
[2016-10-24 05:49] LABS: BUN/Creatinine Ratio 9 (6-26); Blood Urea Nitrogen 8 mg/dL (7-20); Calcium 8.5 mg/dL (8.6-10.8); Carbon Dioxide 25 mEq/L (19-29); Chloride 108 mEq/L (98-109); Glucose 96 mg/dL (70-99); Osmolality,Calculated 290 (280-300); Potassium 4.1 mEq/L (3.5-4.5); Sodium 141 mEq/L (136-145); eGFR For African Americans > 60 (> 60); eGFR For Non-African Americans > 60 (> 60)
[2016-10-24] MEDS: Insulin LISPRO 300 UNITS/3 ML VIAL SQ SCH (08:01)
[2016-10-24] MEDS: Lactobacillus 1 EACH CAP.SPRINK PO SCH (08:52)
[2016-10-24] MEDS: Gabapentin 100 MG CAPSULE PO SCH (08:52)
[2016-10-24] MEDS: Acetaminophen 325 MG TABLET PO PRN (08:54)
--- NOTE | 2016-10-24 09:57 | Physician Discharge Referral ---
ExtendedCare Referral Info Transfer To: [facility] Provider in Charge: Dr. Meehan Provider in Charge after Transfer: PCP Institutional Level of Care: Skilled - Diagnosis (1) Depression Priority: Secondary Status: Chronic (2) Diabetes Priority: Secondary Status: Chronic (3) Hypothyroid Priority: Secondary Status: Chronic (4) Cellulitis Priority: Primary Status: Acute (5) CKD (chronic kidney disease) Priority: Secondary Status: Chronic (6) Sacral decubitus ulcer, stage II Priority: Primary Status: Acute (7) Hypokalemia Priority: Primary Status: Resolved Prognosis: Fair Aware of Diagnosis: Patient Aware of Prognosis: Patient - Transfer Medications Home Medications: Acetaminophen [Tylenol Arthritis] 650 mg PO BID PRN 10/07/16 [History] Cyclobenzaprine [Flexeril] 10 mg PO HS 10/07/16 [History] Gabapentin [Neurontin] 300 mg PO TID 10/07/16 [History] Hydrochlorothiazide [Microzide] 12.5 mg PO DAILY 10/07/16 [History] Lovastatin 40 mg PO DAILY 10/07/16 [History] Mv-Mn/FA/Vit K/Lycop/Lut/Coq10 [Daily Multivitamin Capsule] 1 each PO DAILY 08/21 [History] Paricalcitol [Zemplar] 1 mcg PO DAILY 10/07/16 [History] Potassium Chloride [K-Tab ER] 20 meq PO DAILY 10/07/16 [History] Levothyroxine Sodium 200 mcg PO DAILY 10/19/16 [History] Allergies/Adverse Reactions: Allergies No Known Allergies Allergy (Verified 10/11/16 22:04) - Respiratory Orders Smoking Cessation: Smoking cessation has been advised. For more information, call the [place] Tobacco Quit Line at 3-177-TBEB-NOW. - Advance Directives Code Status: Full Code - Mobility Orders Ambulate - Rehabiliation Orders Rehab Potential: Fair Rehab Orders: Evaluation for Physical Therapy - Treatments Skin tear care topically daily PRN per policy List/Other: Wound Care: cleanse all pressure injuries to the buttocks and posterior thighs with HCG (Claire-Hex) soap and water - rinse well with water and pat dry - apply Santyl to the areas of necrosis - cover with adaptic gauze 2 layers - pad with 5x9 ABD - hold secure with Medipore tape change daily - Diet Orders No Concentrated Sweets, Cardiac CERTIFICATION: I certify that the transfer of the above named patient to an Extended Care Facility is necessary for the continuing treatment of the diagnosis listed. The above information is true and accurate reflection of patient's current condition. Confidential - Redisclosure prohibited without a patient's written consent.
--- NOTE | 2016-10-24 10:04 | Discharge Summary ---
Date of Encounter: 10/24/16 Time of Encounter: 10:02 - Discharge Diagnosis (1) Depression Priority: Secondary Status: Chronic Qualifiers: Depression Type: major depressive disorder Major depression recurrence: recurrent Active/Remission status: currently active Major depression episode severity: severe Psychotic features: without psychotic features Qualified Code(s): F33.2 - Major depressive disorder, recurrent severe without psychotic features (2) Diabetes Priority: Secondary Status: Chronic Qualifiers: Diabetes mellitus type: type 2 Diabetes mellitus complication status: with kidney complications Diabetes mellitus complication detail: with chronic kidney disease Diabetes mellitus retirement insulin use: without retirement use Chronic kidney disease stage: stage 3 (moderate) Qualified Code(s): E11.22 - Type 2 diabetes mellitus with diabetic chronic kidney disease; N18.3 - Chronic kidney disease, stage 3 (moderate) (3) Hypothyroid Priority: Secondary Status: Chronic Qualifiers: Hypothyroidism type: unspecified Qualified Code(s): E03.9 - Hypothyroidism , unspecified (4) Cellulitis Priority: Primary Status: Acute Qualifiers: Site of cellulitis: extremity Site of cellulitis of extremity: lower extremity Laterality: right Qualified Code(s): L03.115 - Cellulitis of right lower limb (5) CKD (chronic kidney disease) Priority: Secondary Status: Chronic Qualifiers: Chronic kidney disease stage: stage 3 (moderate) Qualified Code(s): N18.3 - Chronic kidney disease, stage 3 (moderate) (6) Sacral decubitus ulcer, stage II Priority: Primary Status: Acute (7) Hypokalemia Priority: Primary Status: Resolved - Discharge Medications Home Medications: Cyclobenzaprine [Flexeril] 10 mg PO HS 10/07/16 [History] Gabapentin [Neurontin] 300 mg PO TID 10/07/16 [History] Hydrochlorothiazide [Microzide] 12.5 mg PO DAILY 10/07/16 [History] Lovastatin 40 mg PO DAILY 10/07/16 [History] Mv-Mn/FA/Vit K/Lycop/Lut/Coq10 [Daily Multivitamin Capsule] 1 each PO DAILY 08/21 [History] Paricalcitol [Zemplar] 1 mcg PO DAILY 10/07/16 [History] Potassium Chloride [K-Tab ER] 20 meq PO DAILY 10/07/16 [History] Acetaminophen [Tylenol] 650 mg PO Q6H PRN #0 tablet 10/24/16 [Rx] Amoxicillin/Clavulanate [Augmentin] 875 mg PO BIDWM tablet 10/24/16 [Rx] Collagenase Oint [Santyl] 1 appl TP DAILY tube 10/24/16 [Rx] Lactobacillus [Culturelle] 1 each PO BID cap.sprink 10/24/16 [Rx] Levothyroxine [Synthroid] 225 mcg PO DAILY@0630 tablet 10/24/16 [Rx] Sertraline [Zoloft] 25 mg PO DAILY tablet 10/24/16 [Rx] Allergies/Adverse Reactions: Allergies No Known Allergies Allergy (Verified 10/11/16 22:04) Date of admission: 10/19/16 16:14 Primary care physician: Marielos Awad Consults: 10/19/16 16:31 Consult to Psychiatry [CONS] Routine Consulting Provider: Psychiatry Andie Reason for Consult: depression Call Completed: No 10/19/16 18:35 Consult to Bakery Worker [CONS] Routine Reason for SW Consult: Possible need for ECF/Rehab 10/20/16 10:56 Consult to Wound Care [CONS] Routine Reason for Consult: Wound to buttock Time Notified: 10:57 Call Completed: Yes 10/21/16 11:03 Consult to Surgery [CONS] Routine Consulting Provider: Surgery [facility] Reason for Consult: necrotic pressure ulcers to buttocks and thighs Time Notified: 11:05 Call Completed: No Discharging clinician: Alfonso Meehan Anticipated date of discharge: 10/24/16 - Patient Status Disposition: Transfer SNF Condition: Fair Functional capacity at discharge: independent ambulation Overall status at discharge: patient is progressing back to baseline - Discharge Instructions Follow Up With: Marielos Awad MD [Primary Care Provider] - 10/30/16 8:45 am - Diet and Activity Activity: resume usual activities as tolerated Diet: diabetic diet, low fat, low cholesterol, low salt diet Interval History: See below Hospital course: Ms. Bass is a 61 year old female She has a hx of severe depression with anhedonia, DM, Hypothyroidism, Obesity She presented to the facility with wounds on her gluteal region and sacrum following falling asleep on the toilet bowl for 36 hours . Patient had had prior episodes of this and already had a toilet bowl shaped wound on her gluteal region. This time, she presented with new wounds, along with redness and pain , cellulitis of the gluteal regions. Patient denies homicidal or suicidal ideations at presentation. Work up on admission was essentially unremarkable, her kidney function was at baseline. TSH was 56. She was admitted for work up and management of her sacral decubiti and cellulitis She was started on IV Vancomycin and Zosyn, blood and wound cultures were done Psych was consulted and their recommendation was for no psych intervention, save to continue patient's Zoloft She was sta ble on antibiotics She is seen at bedside this morning, denies new complains Wound culture rgew chen-sensitive E.coli. She received 4 days of IV Zosyn and 3 days of Vanco IV Patient will be discharged to nursing facility to continue antibiotics for 7 more days. Her fingersticks have been controlled in-patient with minimal use of sliding scale insulin, recommend to continue to monitor Patient's home levothyroxine was increased from 200 to 220 mcgs, it is likely that the patient was just not compliant due to her anhedonia Recommend to repeat TSH with PCP in 3 months and adjust accordingly Plan of care discussed, verbalized understanding - Time Spent with Patient Total time spent providing and/or coordinating discharge services: Greater than 30 minutes (35 minutes spent on chart review, patient encounter, medication reconciliation and prescription , referral to ECF, documentation.) - Constitutional Vitals: Temp Pulse Resp BP Pulse Ox 98.4 F 74 16 105/68 94 10/24/16 07:58 10/24/16 07:58 10/24/16 07:58 10/24/16 07:58 10/24/16 07:58 VSS Morbidly obese, in no form of distress Speaks full sentences, alert, awake and oriented X3 Affect is better, normal, speech is normal No facial droop, no speech deficits, moves all limbs. Chest is clear to auscultation bilaterally heart sounds S1, s2. Abdomen is soft, obese, not tender, no palpably enlarged organs Extremities with no edema : Stage II pressure ulcers in the shape of toilet bowl shape X2 with multiple deep wounds , some slough General appearance: Present: cooperative, A&O X 3, obese, answers questions appropriately - VTE Documentation of Mechanical Device: Intermittent pneumatic compression device
[2016-10-24 11:23] VITALS: BP 107/69
[2016-10-24] MEDS ORDERED: Aminoglycoside Consult 1 EACH MC ONE (11:48)
== END 2016-10-24 11:49 | DRG 383 ==
LOC: 3ANU 12:17 → EMEROO 12:17 → SUATTDRO 16:14 → 3ANU 17:30
PROVIDERS: ADMIT Internal Medicine; ATTEND Internal Medicine

== ENCOUNTER 2017-03-18 13:00 | Observation (INO) ==
--- NOTE | 2017-03-18 13:28 | Emergency Department Note ---
START Narrative - START START: I examined this patient and my medical decision-making was reviewed with the ASSISTANT FITNESS MANAGER/PA/Advanced Practice Nurse/Resident Physician. I agree with the documented findings, disposition and treatment plan as described except to the extent set forth below. The patient is presents with chest pain and there was a pleuritic aspect although that is resolved. No radiation to the back. I reviewed the EKG showing normal sinus rhythm with a rate of 72 without acute ischemic change. Diagnostic evaluation is pending. [id number]
[2017-03-18 13:45] LABS: Basophils % 0.8 %; Eosinophils # 0.2 K/mcL (0.0-0.6); Eosinophils % 3.7 %; Hematocrit 41.5 % (35.3-44.9); Hemoglobin 13.3 g/dL (11.5-15.4); Immature Granulocytes % 0.4 % (0-4); Lymphocytes # 1.6 K/mcL (0.6-4.6); Lymphocytes % 30.7 %; Mean Corpuscular Hemoglobin 28.1 pg (28.0-33.3); Mean Corpuscular Volume 87.6 fL (83.0-100.0); Mean Platelet Volume 10.7 fL (9.4-12.4); Monocytes # 0.4 K/mcL (0.0-1.3); Monocytes % 8.5 %; Neutrophils # 2.8 K/mcL (1.6-8.9); Platelet Count 274 K/mcL (140-400); Red Blood Count 4.74 M/mcL (3.82-4.97); Red Cell Distribution Width 14.6 % (11.5-14.5); Segmented Neutrophils % 55.9 %
--- NOTE | 2017-03-18 13:58 | Emergency Department Note ---
Disposition Clinical Impression: Shortness of breath at rest Chest pain Qualifiers: Chest pain type: unspecified Qualified Code(s): R07.9 - Chest pain, unspecified Disposition: Admitted As Inpatient Condition: Good Referrals: Marielos Awad MD [Primary Care Provider] - Forms: ED Satisfaction Letter Chest Pain HPI - General Chief Complaint: ED Chest Pain Stated Complaint: Chest pain Time Seen by Provider: 03/18/17 13:24 Source: patient Limitations: no limitations - History of Present Illness HPI Narrative: Patient is a 61-year-old female with a past medical history of hypertension, diabetes, and chronic kidney disease who came via EMS and presents with chest pain and shortness of breath 30 minutes prior to arrival. Patient states that the chest pain came on while she was eating lunch and felt like a heavy pressure in the middle of her chest like "someone is sitting on my chest". She states that it lasted for approximately 30 minutes before EMS arrived and went away on its on. She denies any radiation of the pain including to her arms, jaw , or back. She denies any current chest pain in the room. She also admits SOB with the onset of chest pain that also subsided the same time the chest pain subsided. She states that the SOB was worse with deep inhalation. She currently denies any SOB in the room and denies any history of DVTs. She states that she had a similar episode of chest pain and SOB two weeks ago, but she did not address it because it went away on its own. She denies any numbness or tingling, any weaknesses, headaches, vision changes, and any abdominal pain. Severity scale (1-10): 0 - Related Data Home Medications Medication Instructions Recorded Confirmed Cyclobenzaprine [Flexeril] 10 mg PO HS 10/07/16 03/18/17 Gabapentin [Neurontin] 300 mg PO TID 10/07/16 03/18/17 Hydrochlorothiazide [Microzide] 12.5 mg PO DAILY 10/07/16 03/18/17 Lovastatin 40 mg PO DAILY 10/07/16 03/18/17 Mv-Mn/FA/Vit K/Lycop/Lut/Coq10 1 each PO DAILY 10/07/16 03/18/17 [Daily Multivitamin Capsule] Paricalcitol [Zemplar] 1 mcg PO DAILY 10/07/16 03/18/17 Potassium Chloride [K-Tab ER] 20 meq PO DAILY 10/07/16 03/18/17 Amino Acids/Protein Hydrolys 30 ml PO BID 03/18/17 03/18/17 [Pro-Stat Awc Liquid Packet] HydrOXYzine 10 mg PO TID PRN 03/18/17 03/18/17 Levothyroxine [Synthroid] 150 mcg PO QAM 03/18/17 03/18/17 OxyCODONE Immed Rel [Roxicodone 5 5 mg PO Q4HR PRN 03/18/17 03/18/17 MG] Oxycodone HCl [Oxaydo] 5 mg PO TID 03/18/17 03/18/17 Previous Rx's Medication Instructions Recorded Acetaminophen [Tylenol] 650 mg PO Q6H PRN #0 tablet 10/24/16 Lactobacillus [Culturelle] 1 each PO BID cap.sprink 10/24/16 Sertraline [Zoloft] 25 mg PO DAILY tablet 10/24/16 Allergies Allergy/AdvReac Type Severity Reaction Status Date / Time No Known Allergies Allergy Verified 10/11/16 22:04 All systems ED: reviewed and negative except as stated. Review of Systems: As Per HPI Constitutional: Denies: fever, chills, weakness Cardiovascular: Reports: chest pain (Patient complains of chest pain prior to arrival. Patient currently denies any chest pain.). Denies: palpitations, dyspnea on exertion Respiratory: Reports: dyspnea (She admits shortness of breath prior to arrival. Patient currently denies any shortness of breath or difficulty breathing in the room.). Denies: wheezes Gastrointestinal: Denies: abdominal pain, nausea, vomiting Musculoskeletal: Denies: back pain, neck pain Neurological: Denies: headache, weakness, numbness Chest Pain PMH - Past Medical History Medical history: Reports: diabetes, hyperlipidemia, hypertension, renal disease , thyroid disease, other Surgical history: Reports: knee replacement, other (Bilateral Carpel Tunnel Release; tubal ligation) Psychiatric history: Reports: no psych history - Social History Smoking Status: Former smoker Alcohol use: Reports: none Drug use: Reports: none Physical Exam - General Limitations: no limitations General appearance: alert, in no apparent distress - Eye Eye exam: Present: normal appearance, PERRL, EOMI - Chest Chest inspection: Present: normal inspection, symmetric chest wall rise - Respiratory Respiratory exam: Present: normal lung sounds bilaterally. Absent: respiratory distress, wheezes - Cardiovascular Cardiovascular exam: Present: regular rate, normal rhythm, normal heart sounds - Abdominal Exam Abdominal exam: Present: soft, Non-Tender. Absent: tenderness, distention, guarding, rebound, rigidity, pulsatile mass - Extremities Exam Extremities exam: Present: other (Trace pitting edema present on bilateral lower extremities. Distal pulses +2/4 bilaterally) - Back Exam Back exam: Present: normal inspection. Absent: tenderness, CVA tenderness (R), CVA tenderness (L), paraspinal tenderness, vertebral tenderness - Neurological Exam Neurological exam: Present: alert, oriented X3 Course Vital Signs Temperature 98.5 F 03/18/17 13:03 Pulse Rate 76 03/18/17 13:03 Respiratory Rate 20 03/18/17 13:03 Blood Pressure 164/65 03/18/17 13:03 O2 Sat by Pulse Oximetry 97 03/18/17 13:03 Temperature 98.5 F 03/18/17 13:03 Pulse Rate 75 03/18/17 14:34 Respiratory Rate 16 03/18/17 14:34 Blood Pressure 149/75 03/18/17 14:34 O2 Sat by Pulse Oximetry 97 03/18/17 14:34 Oxygen Delivery Oxygen Delivery Room Air Chest Pain - MDM Narrative Medical decision making narrative: The patient is alert and does not appear in any acute distress. EKG showed normal sinus rhythm with a rate of 72 without any acute ischemic change. Labs are pending. 14:36- Labs are reviewed. She has an elevated Creatine of 1.15 and Dimer of 618. Troponins are negative. Will order a CTA of the chest. Patient is comfortable with no complaints of any pain or shortness of breath. 15:59- CXR showed no acute cardiopulmonary abnormalities. CTA of chest showed no acute pulmonary emboli. Nonspecific mild reflux of intravenous contrast into the hepatic veins which can be seen in the setting of right heart dysfunction. Normal heart size with no pericardial effusion and no acute pulmonary process.Plan is to admit the patient to observe her overnight and rule out chest pain. Discussed the plan with the patient and she agrees to be admitted. Waiting on hospitalist to call. 17:05- Spoke with Ca the Nurse Practitioner and discussed the patient with her. She agrees to accept the patient. - Lab Data Lab results reviewed: Yes I reviewed the patient's lab results. Result diagrams: 03/18/17 13:29 03/18/17 13:29 Lab Results 03/18/17 03/18/17 03/18/17 Range/Units 13:29 13:29 13:29 WBC 5.1 (4.3-11.1) K/mcL RBC 4.74 (3.82-4.97) M/mcL Hgb 13.3 (11.5-15.4) g/dL Hct 41.5 (35.3-44.9) % MCV 87.6 (83.0-100.0) fL MCH 28.1 (28.0-33.3) pg MCHC 32.0 (31.6-35.5) g/dL RDW 14.6 H (11.5-14.5) % Plt Count 274 (140-400) K/mcL MPV 10.7 (9.4-12.4) fL Immature Gran % 0.4 (0-4) % Seg Neutrophils % 55.9 % Lymphocytes % 30.7 % Monocytes % 8.5 % Eosinophils % 3.7 % Basophils % 0.8 % Neutrophils # 2.8 (1.6-8.9) K/mcL Lymphocytes # 1.6 (0.6-4.6) K/mcL Monocytes # 0.4 (0.0-1.3) K/mcL Eosinophils # 0.2 (0.0-0.6) K/mcL Basophils # 0.0 (0.0-0.2) K/mcL D-Dimer (0-500) ng/mLFEU Sodium 141 (136-145) mEq/L Potassium 3.7 (3.5-4.5) mEq/L Chloride 102 (98-109) mEq/L Carbon Dioxide 31 H (19-29) mEq/L BUN 17 (7-20) mg/dL Creatinine 1.15 H (0.57-1.11) mg/dL Est GFR ( Amer) 58 L (> 60) Est GFR (Non-Af Amer) 48 L (> 60) BUN/Creatinine Ratio 15 (6-26) Glucose 126 H (70-99) mg/dL Calculated Osmolality 295 (280-300) Calcium 9.7 (8.6-10.8) mg/dL Troponin I 0.00 (0-0.03) ng/mL 03/18/17 Range/Units 13:31 WBC (4.3-11.1) K/mcL RBC (3.82-4.97) M/mcL Hgb (11.5-15.4) g/dL Hct (35.3-44.9) % MCV (83.0-100.0) fL MCH (28.0-33.3) pg MCHC (31.6-35.5) g/dL RDW (11.5-14.5) % Plt Count (140-400) K/mcL MPV (9.4-12.4) fL Immature Gran % (0-4) % Seg Neutrophils % % Lymphocytes % % Monocytes % % Eosinophils % % Basophils % % Neutrophils # (1.6-8.9) K/mcL Lymphocytes # (0.6-4.6) K/mcL Monocytes # (0.0-1.3) K/mcL Eosinophils # (0.0-0.6) K/mcL Basophils # (0.0-0.2) K/mcL D-Dimer 618 H (0-500) ng/mLFEU Sodium (136-145) mEq/L Potassium (3.5-4.5) mEq/L Chloride (98-109) mEq/L Carbon Dioxide (19-29) mEq/L BUN (7-20) mg/dL Creatinine (0.57-1.11) mg/dL Est GFR ( Amer) (> 60) Est GFR (Non-Af Amer) (> 60) BUN/Creatinine Ratio (6-26) Glucose (70-99) mg/dL Calculated Osmolality (280-300) Calcium (8.6-10.8) mg/dL Troponin I (0-0.03) ng/mL - Radiology Data Radiology results reviewed: Yes I reviewed the patient's radiology results. Chest X-Ray 03/18/17 13:08 IMPRESSION: No acute cardiopulmonary findings. D/ / Emi Roy MD / Emi Roy MD Interpreting Provider: Emi Roy MD - EKG Data EKG attestation: Yes I reviewed and interpreted this EKG. EKG results narrative: No STEMI or T waves abnomalities. EKG shows normal: sinus rhythm Rate: normal Rhythm: NSR Alden/QRS: normal When compared to previous EKG there are: no significant changes Interpretation: no acute changes
[2017-03-18 14:00] LABS: Calcium 9.7 mg/dL (8.6-10.8); Potassium 3.7 mEq/L (3.5-4.5)
--- NOTE | 2017-03-18 18:24 | Internal Med History&Physical ---
Date of Encounter: 03/18/17 Time of Encounter: 18:22 Assessment and Plan (1) Morbid obesity Current visit: Yes Status: Acute Outpatient follow-up and weight loss regimen recommended. (2) Chronic kidney disease, stage III (moderate) Current visit: Yes Status: Acute Avoid nephrotoxins. Monitor kidney function. (3) Chest pain Current visit: Yes Status: Acute Atypical chest pain. No recent cardiac workup. Troponin and cardiac enzyme negative. We will place in observation. Monitor on telemetry. Trend troponin. Obtain stress test and echocardiogram in the morning. Qualifiers: Chest pain type: precordial pain Qualified Code(s): R07.2 - Precordial pain (4) Hyperlipidemia Current visit: Yes Status: Acute Continue statin. Check lipid panel. Qualifiers: Hyperlipidemia type: unspecified Qualified Code(s): E78.5 - Hyperlipidemia , unspecified (5) Hypothyroid Current visit: No Status: Chronic Continue with levothyroxine. Check Qualifiers: Hypothyroidism type: acquired Qualified Code(s): E03.9 - Hypothyroidism, unspecified Internal Medicine - H&P: HPI Chief complaint: Chest pain Admitted From: Emergency Dept Plans for Post Hospital Care: Home History of present illness: Ms. Bass is a 61 year old female presented to the hospital for evaluation of chest pain graded at 6/10 in intensity, located in the middle of the chest, pressure-like, lasted 30-40 minutes and was associated with shortness of breath. Denies aggravating and alleviating factors. She had another episode about 2 weeks ago, at that time she did not come to the hospital. She is chest pain-free now. 10 systems were reviewed and found negative except as above Past Med Surg Social Fam HX - Past Medical History Medical history: diabetes, hyperlipidemia, hypertension, renal disease, thyroid disease, other Psychiatric history: no psych history - Past Surgical History Surgical History: knee replacement, other (Bilateral Carpel Tunnel Release; tubal ligation) - Social History Smoking Status: Former smoker Smokeless Tobacco Status: No Alcohol use: none Drug use: none - Family History Mother Adopted: No Family Member Ethnicity: Non- Living Status: Hx Family Cardiac Disorders: No Hx Family Respiratory Disorders: No Hx Family Cancer: Yes Hx Family GI Disorders: No Hx Family Endocrine Disorder: No Hx Family Neuromuscular Disorders: No Hx Family Neurologic Disorders: No Hx Family HEENT Disorders: No Hx Family Autoimmune Disorders: No Father Adopted: No Family Member Ethnicity: Non- Living Status: Hx Family Cardiac Disorders: Yes Hx Family Respiratory Disorders: No Hx Family Cancer: Yes Hx Family GI Disorders: No Hx Family Endocrine Disorder: No Hx Family Neuromuscular Disorders: No Hx Family Neurologic Disorders: No Hx Family HEENT Disorders: No Hx Family Autoimmune Disorders: No Internal Medicine - H&P: Meds Cyclobenzaprine [Flexeril] 10 mg PO HS 10/07/16 [History] Gabapentin [Neurontin] 300 mg PO TID 10/07/16 [History] Hydrochlorothiazide [Microzide] 12.5 mg PO DAILY 10/07/16 [History] Lovastatin 40 mg PO DAILY 10/07/16 [History] Mv-Mn/FA/Vit K/Lycop/Lut/Coq10 [Daily Multivitamin Capsule] 1 each PO DAILY 08/21 [History] Paricalcitol [Zemplar] 1 mcg PO DAILY 10/07/16 [History] Potassium Chloride [K-Tab ER] 20 meq PO DAILY 10/07/16 [History] Acetaminophen [Tylenol] 650 mg PO Q6H PRN #0 tablet 10/24/16 [Rx] Lactobacillus [Culturelle] 1 each PO BID cap.sprink 10/24/16 [Rx] Sertraline [Zoloft] 25 mg PO DAILY tablet 10/24/16 [Rx] Amino Acids/Protein Hydrolys [Pro-Stat Awc Liquid Packet] 30 ml PO BID 03/18/17 [History] HydrOXYzine 10 mg PO TID PRN 03/18/17 [History] Levothyroxine [Synthroid] 150 mcg PO QAM 03/18/17 [History] OxyCODONE Immed Rel [Roxicodone 5 MG] 5 mg PO Q4HR PRN 03/18/17 [History] Oxycodone HCl [Oxaydo] 5 mg PO TID 03/18/17 [History] 3 Allergy/AdvReac Type Severity Reaction Status Date / Time No Known Allergies Allergy Verified 10/11/16 22:04 All Systems PM: A 10-system review of systems was performed and is negative for pertinent findings except as documented above in the HPI. - Constitutional Vitals: Temp Pulse Resp BP Pulse Ox 98.5 F 75 16 149/75 97 03/18/17 13:03 03/18/17 14:34 03/18/17 14:34 03/18/17 14:34 03/18/17 14:34 General appearance: Present: A&O X 3 - Eye Eye exam: Present: PERRL, conjuntiva pink, sclera anicteric Pupils: Present: PERRL - Respiratory Respiratory exam: Present: CTAB. Absent: accessory muscle use, rales, rhonchi, wheezes - Cardiovascular Cardiovascular exam: Present: RRR, +S1, +S2. Absent: diastolic murmur, gallop, rubs, systolic murmur - GI/Abdominal GI/Abdominal exam: Present: normal bowel sounds, soft, no peritoneal signs. Absent: distended, tenderness - Neurological Exam Neurological exam: Present: CN II-XII intact, oriented X3, no focal deficits. Absent: pronater drift, facial droop, speech deficit - Skin Skin exam: Present: dry, intact Internal Med - H&P Results - Labs CBC & Chem 7: 03/18/17 13:29 03/18/17 13:29 - EKG Data -: EKG Interpreted by Myself EKG shows normal: sinus rhythm, axis, intervals, QRS complexes, ST-T waves
[2017-03-18] MEDS ORDERED: *HR* OxyCODONE Immed Rel 5 MG TABLET PO PRN (18:25)
[2017-03-18] MEDS ORDERED: Ondansetron 4 MG/2 ML VIAL IVP PRN (18:30)
[2017-03-18] MEDS ORDERED: Acetaminophen 325 MG TABLET PO PRN (18:30)
[2017-03-18] MEDS ORDERED: Naloxone 0.4 MG/ML INJ IVP PRN (18:30)
[2017-03-18] MEDS: Gabapentin 300 MG CAPSULE PO SCH (21:35)
[2017-03-18] MEDS: *HR* OxyCODONE Immed Rel 5 MG TABLET PO SCH (21:36)
[2017-03-19 01:08] LABS: Basophils % 0.7 %; Eosinophils # 0.2 K/mcL (0.0-0.6); Eosinophils % 3.7 %; Hematocrit 39.4 % (35.3-44.9); Hemoglobin 12.8 g/dL (11.5-15.4); Immature Granulocytes % 0.2 % (0-4); Lymphocytes # 2.1 K/mcL (0.6-4.6); Lymphocytes % 34.3 %; Mean Corpuscular HGB Conc 32.5 g/dL (31.6-35.5); Mean Corpuscular Hemoglobin 27.9 pg (28.0-33.3); Mean Platelet Volume 10.4 fL (9.4-12.4); Monocytes # 0.5 K/mcL (0.0-1.3); Monocytes % 8.3 %; Neutrophils # 3.3 K/mcL (1.6-8.9); Platelet Count 266 K/mcL (140-400); Red Blood Count 4.58 M/mcL (3.82-4.97); Red Cell Distribution Width 14.5 % (11.5-14.5); Segmented Neutrophils % 52.8 %
[2017-03-19 01:25] LABS: BUN/Creatinine Ratio 15 (6-26); Blood Urea Nitrogen 16 mg/dL (7-20); Calcium 9.4 mg/dL (8.6-10.8); Carbon Dioxide 27 mEq/L (19-29); Chloride 104 mEq/L (98-109); Chol/HDL Ratio 3.7 (0-4.9); Cholesterol 167 mg/dL (< 200); Glucose 105 mg/dL (70-99); HDL Cholesterol 45 mg/dL (40-59); LDL Cholesterol,Calculated 97 mg/dL (0-99); Magnesium 1.8 mg/dL (1.6-2.6); Osmolality,Calculated 290 (280-300); Sodium 139 mEq/L (136-145); Triglycerides 127 mg/dL (< 150); eGFR For African Americans > 60 (> 60); eGFR For Non-African Americans 54 (> 60)
[2017-03-19 01:46] LABS: Thyroid Stimulating Hormone 5.157 mcIU/mL (0.350-4.840)
[2017-03-19] MEDS ORDERED: Regadenoson 0.4 MG/5 ML SYRINGE IVP ONE (06:12)
--- NOTE | 2017-03-19 09:28 | Electrocardiograph Report ---
[facility] Date: 2017-03-18 Pat Name: Angélica Bass Department: [id number] Room: 3B47 Gender: F [facility] Director: : [id number] Requested By: Keny Caicedo Order Number: [id number] Tejas MD: Pollo Chanel MD Measurements Intervals [place] Rate: 72 P: 50 NH: 171 QRS: 14 QRSD: 89 T: 73 QT: 354 QTc: 379 Interpretive Statements SINUS RHYTHM NONSPECIFIC T-WAVE ABNORMALITY Electronically Signed On 03-19-2017 9:26:21 EDT by Pollo Chanel MD
[2017-03-19] MEDS: hydroCHLOROthiazide 25 MG TABLET PO SCH (11:42)
[2017-03-19] MEDS: Gabapentin 300 MG CAPSULE PO SCH ×3 (11:42→21:17)
[2017-03-19] MEDS: *HR* OxyCODONE Immed Rel 5 MG TABLET PO SCH ×3 (11:42→21:17)
--- NOTE | 2017-03-19 16:11 | Internal Med Progress Note ---
Date of Encounter: 03/19/17 Time of Encounter: 12:30 - Assessment and plan (1) Chest pain Current Visit: Yes Status: Acute Assessment and plan: Atypical chest pain. Initial labs, EKG and chest x-ray showed no acute abnormality. Lipid profile within normal limits. Continue statin. Patient may need to be started on beta sukhjinder due to uncontrolled blood pressure. Continue telemetry monitoring. Serial troponins remained negative. Echocardiogram shows a suboptimal study due to body habitus but grossly normal with normal ejection fraction. Follow-up nuclear stress test report. Patient is currently a resident at [facility] and intends to return back. She has also been evicted from her house due to being at rehabilitation facility. director of student services on board, patient likely requires preauthorization prior to being discharged back to retirement. Qualifiers: Chest pain type: precordial pain Qualified Code(s): R07.2 - Precordial pain (2) Depression Current Visit: Yes Status: Chronic Assessment and plan: Resume home medications. Qualifiers: Depression Type: major depressive disorder Major depression recurrence: recurrent Active/Remission status: currently active Major depression episode severity: severe Psychotic features: without psychotic features Qualified Code(s): F33.2 - Major depressive disorder, recurrent severe without psychotic features (3) Diabetes Current Visit: Yes Status: Chronic Assessment and plan: Accu-Chek blood glucose monitoring with sliding scale insulin as needed. Diabetic diet. Blood sugars noted to be well controlled. Qualifiers: Diabetes mellitus type: type 2 Diabetes mellitus complication status: with kidney complications Diabetes mellitus complication detail: with chronic kidney disease Diabetes mellitus fdc insulin use: without terminal supervisor use Chronic kidney disease stage: stage 3 (moderate) Qualified Code(s): E11.22 - Type 2 diabetes mellitus with diabetic chronic kidney disease; N18.3 - Chronic kidney disease, stage 3 (moderate) (4) Hypothyroid Current Visit: Yes Status: Chronic Assessment and plan: TSH noted to be elevated at 5. Continue levothyroxine and follow up as outpatient. Qualifiers: Hypothyroidism type: unspecified Qualified Code(s): E03.9 - Hypothyroidism , unspecified (5) CKD (chronic kidney disease) Current Visit: Yes Status: Chronic Assessment and plan: Serum creatinine noted to be at baseline. Continue to monitor closely. Qualifiers: Chronic kidney disease stage: stage 3 (moderate) Qualified Code(s): N18.3 - Chronic kidney disease, stage 3 (moderate) (6) Morbid obesity Current Visit: Yes Status: Chronic - Subjective Interval history: Reports improvement in chest pain; no palpitations, dyspnea; appears depressed. - Constitutional Vitals: Temp Pulse Resp BP Pulse Ox 98.1 F 89 15 146/80 95 03/19/17 15:11 03/19/17 15:11 03/19/17 15:11 03/19/17 15:11 03/19/17 15:11 General appearance: Present: A&O X 3, answers questions appropriately - Respiratory Respiratory exam: Present: CTAB. Absent: accessory muscle use, rales, rhonchi, wheezes - Cardiovascular Cardiovascular exam: Present: RRR, +S1, +S2. Absent: diastolic murmur, gallop, rubs, systolic murmur - GI/Abdominal GI/Abdominal exam: Present: normal bowel sounds, soft (obese), no peritoneal signs. Absent: distended, tenderness - Extremities Exam Extremities exam: Present: full ROM, warm, radial pulses palpable and symmetrical. Absent: calf tenderness, cyanotic, pedal edema - Psychiatric Psychiatric exam: Present: depressed, flat affect Internal Medicine: Result - Labs CBC & Chem 7: 03/19/17 01:02 03/19/17 01:02 Labs: Short CBC 03/19/17 Range/Units 01:02 WBC 6.2 (4.3-11.1) K/mcL Hgb 12.8 (11.5-15.4) g/dL Hct 39.4 (35.3-44.9) % Plt Count 266 (140-400) K/mcL Neutrophils # 3.3 (1.6-8.9) K/mcL BMP 03/19/17 01:02 Sodium 139 Potassium 4.0 Chloride 104 Carbon Dioxide 27 BUN 16 Creatinine 1.04 Glucose 105 H Calcium 9.4 Cardiac Enzymes 03/18/17 03/19/17 Range/Units 19:32 01:02 Troponin I 0.00 0.00 (0-0.03) ng/mL - ABG Interpretation ABG results: PT/INR, D-dimer D-Dimer 618 ng/mLFEU (0-500) H 03/18/17 13:31 - Impressions Impressions Echocardiogram 03/18/17 18:32 Impressions: LVEF is probably normal, not all wall segments visualized Technically sub-optimal due to body habitus. No significant valvular dysfunction. Left Ventricular Wall Motion: Rest Echo Findings All visualized wall segments showed normal motion. Findings: Aorta * Normally sized aortic root. Pericardium * The pericardium appears normal. ECG Findings * Normal sinus rhythm. Study Quality * Technically sub-optimal due to body habitus. Left Atrium * Mildly dilated left atrium. Aortic Valve * No aortic regurgitation. * No aortic stenosis. * Aortic valve not well visualized. Tricuspid Valve * No tricuspid stenosis. * No tricuspid regurgitation. * Tricuspid valve not well visualized. Pulmonic Valve * Pulmonic valve not well visualized. * No pulmonic regurgitation. * No pulmonic stenosis. Mitral Valve * Mitral valve not well visualized. * No mitral stenosis. * Trace mitral regurgitation. Interatrial Septum * Interatrial septum not well evaluated. Right Ventricle * Not well visualized, appears to be normal size IVC * Normal IVC dimensions and inspiratory collapse. Right Atrium * Right atrium is not well visualized. Left Ventricle * LVEF is probably normal, not all wall segments visualized * Indeterminate diastolic function. Consult Discharge Plan - Plan Referrals: Marielos Awad MD [Primary Care Provider] -
[2017-03-20] MEDS: hydroCHLOROthiazide 25 MG TABLET PO SCH (11:26)
[2017-03-20] MEDS: Gabapentin 300 MG CAPSULE PO SCH ×3 (11:26→22:28)
[2017-03-20] MEDS: *HR* OxyCODONE Immed Rel 5 MG TABLET PO SCH ×3 (11:27→22:29)
--- NOTE | 2017-03-20 19:54 | Internal Med Progress Note ---
Date of Encounter: 03/20/17 Time of Encounter: 15:30 - Assessment and plan (1) Chest pain Current Visit: Yes Status: Acute Assessment and plan: Atypical chest pain. Initial labs, EKG and chest x-ray showed no acute abnormality. Lipid profile within normal limits. Continue statin. Patient has been started on beta sukhjinder due to uncontrolled blood pressure. Serial troponins negative. Echocardiogram shows a suboptimal study due to body habitus but grossly normal with normal ejection fraction. Stress test was negative for ischemia or infarct, gated EF greater than 70%. Patient is currently a resident at [facility] and intends to return back. She has also been evicted from her house due to being at rehabilitation facility. oil well services superintendent on board, patient likely requires preauthorization prior to being discharged back to [facility]. Patient will be here till Wednesday. Echocardiogram 03/18/17 18:32 Impressions: LVEF is probably normal, not all wall segments visualized Technically sub-optimal due to body habitus. No significant valvular dysfunction. Left Ventricular Wall Motion: Rest Echo Findings All visualized wall segments showed normal motion. Findings: Aorta * Normally sized aortic root. Pericardium * The pericardium appears normal. ECG Findings * Normal sinus rhythm. Study Quality * Technically sub-optimal due to body habitus. Left Atrium * Mildly dilated left atrium. Aortic Valve * No aortic regurgitation. * No aortic stenosis. * Aortic valve not well visualized. Tricuspid Valve * No tricuspid stenosis. * No tricuspid regurgitation. * Tricuspid valve not well visualized. Pulmonic Valve * Pulmonic valve not well visualized. * No pulmonic regurgitation. * No pulmonic stenosis. Mitral Valve * Mitral valve not well visualized. * No mitral stenosis. * Trace mitral regurgitation. Interatrial Septum * Interatrial septum not well evaluated. Right Ventricle * Not well visualized, appears to be normal size IVC * Normal IVC dimensions and inspiratory collapse. Right Atrium * Right atrium is not well visualized. Left Ventricle * LVEF is probably normal, not all wall segments visualized * Indeterminate diastolic function. Qualifiers: Chest pain type: precordial pain Qualified Code(s): R07.2 - Precordial pain (2) Depression Current Visit: Yes Status: Chronic Assessment and plan: Resume home medications. Patient denies feeling hopeless, helpless. She denies any thoughts of suicidal or homicidal ideation. Qualifiers: Depression Type: major depressive disorder Major depression recurrence: recurrent Active/Remission status: currently active Major depression episode severity: severe Psychotic features: without psychotic features Qualified Code(s): F33.2 - Major depressive disorder, recurrent severe without psychotic features (3) Diabetes Current Visit: Yes Status: Chronic Assessment and plan: Hemoglobin A1c is 5.8 in December. Well controlled. Continue to monitor Accu- Cheks. Diabetic diet, sliding scale insulin as needed. Redraw A1c in the morning. Qualifiers: Diabetes mellitus type: type 2 Diabetes mellitus complication status: with kidney complications Diabetes mellitus complication detail: with chronic kidney disease Diabetes mellitus manager long term care insulin use: without manager long term care use Chronic kidney disease stage: stage 3 (moderate) Qualified Code(s): E11.22 - Type 2 diabetes mellitus with diabetic chronic kidney disease; N18.3 - Chronic kidney disease, stage 3 (moderate) (4) Hypothyroid Current Visit: Yes Status: Chronic Assessment and plan: TSH noted to be elevated at 5. Continue levothyroxine and follow up as outpatient. Qualifiers: Hypothyroidism type: unspecified Qualified Code(s): E03.9 - Hypothyroidism , unspecified (5) DVT prophylaxis Current Visit: No Status: Acute Assessment and plan: Patient is ambulatory in the room. EARNEST holland ordered. (6) CKD (chronic kidney disease) Current Visit: Yes Status: Chronic Assessment and plan: Serum creatinine noted to be at baseline. Serum creatinine is 1.04 area GFR 54. Continue to monitor closely. Avoid nephrotoxins Qualifiers: Chronic kidney disease stage: stage 3 (moderate) Qualified Code(s): N18.3 - Chronic kidney disease, stage 3 (moderate) (7) Shortness of breath at rest Current Visit: Yes Status: Acute Assessment and plan: Patient denies shortness of breath with exertion or rest today. Lungs are clear without rales, rhonchi, respiratory distress, stridor. Patient denies cough, fever or chills. Chest x-ray was negative for any acute findings, chest CTA was negative for PE, no pleural effusion, no acute pulmonary process. Chest X-Ray 03/18/17 13:08 IMPRESSION: No acute cardiopulmonary findings. D/ / Emi Roy MD / Emi Roy MD Interpreting Provider: Emi Roy MD Chest CTA 03/18/17 14:23 IMPRESSION: 1. No acute pulmonary emboli. 2. Nonspecific mild reflux of intravenous contrast into the hepatic veins which can be seen in the setting of right heart dysfunction. Normal heart size with no pericardial effusion. 3. No acute pulmonary process. D/ / 03/18/2017 15:52:07 Mukul Gallo MD / [email or web address] Interpreting Provider: Mukul Gallo MD (8) Morbid obesity Current Visit: Yes Status: Chronic Assessment and plan: Chronic. Lifestyle modifications. Patient is not diabetic and cardiac diet. - Time Spent With Patient less than 15 minutes - Subjective Interval history: Patient was seen and assessed at 1530. Patient is going to be here for this week and since she has to be recertified to go back to the [facility]. She denies chest pain today. She denies headache, nausea, vomiting, diaphoresis, abdominal pain. She states that she is bored. - Constitutional Vitals: Temp Pulse Resp BP Pulse Ox 97.9 F 76 16 156/68 95 03/20/17 18:58 03/20/17 18:58 03/20/17 18:58 03/20/17 18:58 03/20/17 18:58 General appearance: Present: cooperative, A&O X 3, pleasant, no acute distress, answers questions appropriately - Head Head exam: Present: atraumatic, normal inspection, normocephalic - Eye Eye exam: Present: normal appearance, conjuntiva pink, sclera anicteric - Neck Neck exam general surgery: Present: normal inspection, supple, trachea midline. Absent: lymphadenopathy, tenderness - Respiratory Respiratory exam: Present: CTAB. Absent: accessory muscle use, chest wall tenderness, rales, rhonchi, wheezes - Cardiovascular Cardiovascular exam: Present: RRR, +S1, +S2. Absent: diastolic murmur, gallop, rubs, systolic murmur - GI/Abdominal GI/Abdominal exam: Present: normal bowel sounds, soft. Absent: distended, hepatomegaly, tenderness - Extremities Exam Extremities exam: Present: normal capillary refill, normal inspection, pedal edema, warm, radial pulses palpable and symmetrical. Absent: calf tenderness, cyanotic - Neurological Exam Neurological exam: Present: alert, oriented X3, no focal deficits. Absent: facial droop, speech deficit - Skin Skin exam: Present: dry, intact, normal color, warm. Absent: rash Internal Medicine: Result - Labs CBC & Chem 7: 03/19/17 01:02 03/19/17 01:02 - ABG Interpretation ABG results: PT/INR, D-dimer D-Dimer 618 ng/mLFEU (0-500) H 03/18/17 13:31 Consult Discharge Plan - Plan Referrals: Marielos Awad MD [Primary Care Provider] -
[2017-03-21 07:19] LABS: Basophils % 0.6 %; Eosinophils # 0.1 K/mcL (0.0-0.6); Eosinophils % 2.1 %; Hematocrit 41.3 % (35.3-44.9); Hemoglobin 13.4 g/dL (11.5-15.4); Immature Granulocytes % 0.2 % (0-4); Immature Platelets 4.6 % (1.1-6.1); Lymphocytes # 2.2 K/mcL (0.6-4.6); Lymphocytes % 34.1 %; Mean Corpuscular HGB Conc 32.4 g/dL (31.6-35.5); Mean Corpuscular Hemoglobin 28.2 pg (28.0-33.3); Mean Corpuscular Volume 86.9 fL (83.0-100.0); Mean Platelet Volume 10.7 fL (9.4-12.4); Monocytes # 0.7 K/mcL (0.0-1.3); Monocytes % 10.3 %; Neutrophils # 3.3 K/mcL (1.6-8.9); Platelet Count 267 K/mcL (140-400); Red Blood Count 4.75 M/mcL (3.82-4.97); Red Cell Distribution Width 14.7 % (11.5-14.5); Segmented Neutrophils % 52.7 %
--- NOTE | 2017-03-21 09:05 | Internal Med Progress Note ---
Date of Encounter: 03/21/17 Time of Encounter: 07:50 - Assessment and plan (1) Chest pain Current Visit: Yes Status: Acute Assessment and plan: Atypical chest pain. Initial labs, EKG and chest x-ray showed no acute abnormality. Lipid profile within normal limits. Continue statin. Patient has been started on beta sukhjinder due to uncontrolled blood pressure. Serial troponins negative. Echocardiogram shows a suboptimal study due to body habitus but grossly normal with normal ejection fraction. Stress test was negative for ischemia or infarct, gated EF greater than 70%. Patient had an elevated d-dimer on arrival to ER. CTA chest was negative for pulmonary emboli and no acute pulmonary process. Patient denies chest pain today. She denies shortness of breath, chest pressure , chest pain, tenderness with palpation, tightness or heaviness. She denies shortness of breath, nausea, vomiting, diaphoresis. Patient is currently a resident at [facility] and intends to return back. She has also been evicted from her house due to being at rehabilitation facility. check services clerk on board, patient likely requires preauthorization prior to being discharged back to assisted. Patient will be here till Wednesday. Echocardiogram 03/18/17 18:32 Impressions: LVEF is probably normal, not all wall segments visualized Technically sub-optimal due to body habitus. No significant valvular dysfunction. Left Ventricular Wall Motion: Rest Echo Findings All visualized wall segments showed normal motion. Findings: Aorta * Normally sized aortic root. Pericardium * The pericardium appears normal. ECG Findings * Normal sinus rhythm. Study Quality * Technically sub-optimal due to body habitus. Left Atrium * Mildly dilated left atrium. Aortic Valve * No aortic regurgitation. * No aortic stenosis. * Aortic valve not well visualized. Tricuspid Valve * No tricuspid stenosis. * No tricuspid regurgitation. * Tricuspid valve not well visualized. Pulmonic Valve * Pulmonic valve not well visualized. * No pulmonic regurgitation. * No pulmonic stenosis. Mitral Valve * Mitral valve not well visualized. * No mitral stenosis. * Trace mitral regurgitation. Interatrial Septum * Interatrial septum not well evaluated. Right Ventricle * Not well visualized, appears to be normal size IVC * Normal IVC dimensions and inspiratory collapse. Right Atrium * Right atrium is not well visualized. Left Ventricle * LVEF is probably normal, not all wall segments visualized * Indeterminate diastolic function. Qualifiers: Chest pain type: precordial pain Qualified Code(s): R07.2 - Precordial pain (2) Depression Current Visit: Yes Status: Chronic Assessment and plan: Resume home medications. Patient denies feeling hopeless, helpless. She denies any thoughts of suicidal or homicidal ideation. Affect is flat, however she is pleasant and interactive and makes good eye contact. Qualifiers: Depression Type: major depressive disorder Major depression recurrence: recurrent Active/Remission status: currently active Major depression episode severity: severe Psychotic features: without psychotic features Qualified Code(s): F33.2 - Major depressive disorder, recurrent severe without psychotic features (3) Diabetes Current Visit: Yes Status: Chronic Assessment and plan: Hemoglobin A1c is 5.8 in December. Well controlled. Continue to monitor Accu- Cheks. Diabetic diet, sliding scale insulin as needed. A1c ordered yesterday, it is still not resulted at this time. Qualifiers: Diabetes mellitus type: type 2 Diabetes mellitus complication status: with kidney complications Diabetes mellitus complication detail: with chronic kidney disease Diabetes mellitus [facility] insulin use: without [facility] use Chronic kidney disease stage: stage 3 (moderate) Qualified Code(s): E11.22 - Type 2 diabetes mellitus with diabetic chronic kidney disease; N18.3 - Chronic kidney disease, stage 3 (moderate) (4) Hypothyroid Current Visit: Yes Status: Chronic Assessment and plan: TSH noted to be elevated at 5. Continue levothyroxine and follow up as outpatient. Qualifiers: Hypothyroidism type: unspecified Qualified Code(s): E03.9 - Hypothyroidism , unspecified (5) DVT prophylaxis Current Visit: No Status: Acute Assessment and plan: Patient is ambulatory in the room. EARNEST holland ordered and applied. (6) CKD (chronic kidney disease) Current Visit: Yes Status: Chronic Assessment and plan: Serum creatinine noted to be at baseline. Labs were drawn this morning, however as of right now they are still not resulted, we will continue to monitor. Continue to monitor closely. Avoid nephrotoxins Qualifiers: Chronic kidney disease stage: stage 3 (moderate) Qualified Code(s): N18.3 - Chronic kidney disease, stage 3 (moderate) (7) Shortness of breath at rest Current Visit: Yes Status: Acute Assessment and plan: Resolved. Patient denies shortness of breath with exertion or rest today. Lungs are clear without rales, rhonchi, respiratory distress, stridor. Patient denies cough, fever or chills. Chest x-ray was negative for any acute findings , chest CTA was negative for PE, no pleural effusion, no acute pulmonary process. Chest X-Ray 03/18/17 13:08 IMPRESSION: No acute cardiopulmonary findings. D/ / Emi Roy MD / Emi Roy MD Interpreting Provider: Emi Roy MD Chest CTA 03/18/17 14:23 IMPRESSION: 1. No acute pulmonary emboli. 2. Nonspecific mild reflux of intravenous contrast into the hepatic veins which can be seen in the setting of right heart dysfunction. Normal heart size with no pericardial effusion. 3. No acute pulmonary process. D/ / 03/18/2017 15:52:07 Mukul Gallo MD / jorge Interpreting Provider: Mukul Gallo MD (8) Morbid obesity Current Visit: Yes Status: Chronic Assessment and plan: Chronic. Lifestyle modifications. Patient is on diabetic and cardiac diet. - Time Spent With Patient less than 15 minutes - Subjective Interval history: Patient was seen and assessed at 0750. Patient is going to be here for this week and since she has to be recertified to go back to the assisted. She denies chest pain today. She denies any other complaints other than what she believes to be a sinus headache. She was given Tylenol, as well as Claritin and Flonase. She denies any postnasal drip or rhinorrhea, no sneezing. She does have frontal and maxillary sinus tenderness with palpation. - Constitutional Vitals: Temp Pulse Resp BP Pulse Ox 97.4 F L 62 16 135/83 97 03/21/17 03:19 03/21/17 03:19 03/21/17 03:19 03/21/17 03:19 03/21/17 03:19 General appearance: Present: cooperative, A&O X 3, pleasant, no acute distress, answers questions appropriately - Head Head exam: Present: atraumatic, normal inspection, normocephalic - Eye Eye exam: Present: normal appearance, conjuntiva pink, sclera anicteric - Neck Neck exam general surgery: Present: normal inspection, supple, trachea midline. Absent: lymphadenopathy, tenderness - Respiratory Respiratory exam: Present: CTAB. Absent: accessory muscle use, decreased breath sounds, rales, rhonchi, wheezes - Cardiovascular Cardiovascular exam: Present: RRR, +S1, +S2. Absent: diastolic murmur, gallop, rubs, systolic murmur - GI/Abdominal GI/Abdominal exam: Present: distended, normal bowel sounds, soft. Absent: hepatomegaly, tenderness - Extremities Exam Extremities exam: Present: normal capillary refill, warm, radial pulses palpable and symmetrical. Absent: calf tenderness, cyanotic, pedal edema, tenderness - Neurological Exam Neurological exam: Present: alert, oriented X3, no focal deficits. Absent: facial droop, speech deficit - Skin Skin exam: Present: dry, intact, normal color, warm. Absent: rash Internal Medicine: Result - Labs CBC & Chem 7: 03/21/17 06:30 03/19/17 01:02 Labs: Short CBC 03/21/17 Range/Units 06:30 WBC 6.3 (4.3-11.1) K/mcL Hgb 13.4 (11.5-15.4) g/dL Hct 41.3 (35.3-44.9) % Plt Count 267 (140-400) K/mcL Neutrophils # 3.3 (1.6-8.9) K/mcL - ABG Interpretation ABG results: PT/INR, D-dimer D-Dimer 618 ng/mLFEU (0-500) H 03/18/17 13:31 Consult Discharge Plan - Plan Referrals: Marielos Awad MD [Primary Care Provider] -
[2017-03-21 09:18] LABS: Hemoglobin A1C 5.8 %
[2017-03-21] MEDS: hydroCHLOROthiazide 25 MG TABLET PO SCH (09:37)
[2017-03-21] MEDS: Loratadine 10 MG TABLET PO SCH (09:37)
[2017-03-21] MEDS: Gabapentin 300 MG CAPSULE PO SCH ×3 (09:37→21:51)
[2017-03-21] MEDS: *HR* OxyCODONE Immed Rel 5 MG TABLET PO SCH ×3 (09:39→21:51)
[2017-03-21] MEDS: Fluticasone Propionate Nasal 50 MCG/SPRAY BOTTLE NS SCH (09:40)
[2017-03-22 03:48] LABS: Basophils % 0.5 %; Eosinophils # 0.2 K/mcL (0.0-0.6); Eosinophils % 3.7 %; Hematocrit 43.4 % (35.3-44.9); Immature Granulocytes % 0.2 % (0-4); Lymphocytes # 2.2 K/mcL (0.6-4.6); Lymphocytes % 34.4 %; Mean Corpuscular HGB Conc 32.3 g/dL (31.6-35.5); Mean Corpuscular Hemoglobin 28.1 pg (28.0-33.3); Mean Platelet Volume 10.8 fL (9.4-12.4); Monocytes # 0.6 K/mcL (0.0-1.3); Neutrophils # 3.3 K/mcL (1.6-8.9); Platelet Count 274 K/mcL (140-400); Red Blood Count 4.99 M/mcL (3.82-4.97); Segmented Neutrophils % 51.2 %
[2017-03-22 04:01] LABS: Potassium 3.9 mEq/L (3.5-4.5)
[2017-03-22] MEDS: hydroCHLOROthiazide 25 MG TABLET PO SCH (08:50)
[2017-03-22] MEDS: Loratadine 10 MG TABLET PO SCH (08:51)
[2017-03-22] MEDS: Fluticasone Propionate Nasal 50 MCG/SPRAY BOTTLE NS SCH (08:51)
[2017-03-22] MEDS: Gabapentin 300 MG CAPSULE PO SCH ×3 (08:51→21:17)
[2017-03-22] MEDS: *HR* OxyCODONE Immed Rel 5 MG TABLET PO SCH ×3 (08:54→21:12)
--- NOTE | 2017-03-22 11:17 | Discharge Summary ---
Date of Encounter: 03/22/17 Time of Encounter: 11:00 - Discharge Diagnosis (1) Chest pain Priority: Primary Status: Acute Comments: Atypical chest pain. Initial labs, EKG and chest x-ray showed no acute abnormality. Lipid profile within normal limits. Continue statin. Patient has been started on beta sukhjinder due to uncontrolled blood pressure. Serial troponins were negative. Echocardiogram shows a suboptimal study due to body habitus but grossly normal with normal ejection fraction. Stress test was negative for ischemia or infarct, gated EF greater than 70%. Patient had an elevated d-dimer, CTA chest was negative for pulmonary emboli and no acute pulmonary process. Pt without suspicion of DVT in BLE. Patient denies chest pain today. She denies shortness of breath, chest pressure , chest pain, tenderness with palpation, tightness or heaviness. She denies nausea, vomiting, diaphoresis. Patient is currently a resident at [facility] and intends to return back, is also a pt there. She has also been evicted from her house due to being at rehabilitation facility. Pt requires a precertification prior to return, social work is on board. Echocardiogram 03/18/17 18:32 Impressions: LVEF is probably normal, not all wall segments visualized Technically sub-optimal due to body habitus. No significant valvular dysfunction. Left Ventricular Wall Motion: Rest Echo Findings All visualized wall segments showed normal motion. Findings: Aorta * Normally sized aortic root. Pericardium * The pericardium appears normal. ECG Findings * Normal sinus rhythm. Study Quality * Technically sub-optimal due to body habitus. Left Atrium * Mildly dilated left atrium. Aortic Valve * No aortic regurgitation. * No aortic stenosis. * Aortic valve not well visualized. Tricuspid Valve * No tricuspid stenosis. * No tricuspid regurgitation. * Tricuspid valve not well visualized. Pulmonic Valve * Pulmonic valve not well visualized. * No pulmonic regurgitation. * No pulmonic stenosis. Mitral Valve * Mitral valve not well visualized. * No mitral stenosis. * Trace mitral regurgitation. Interatrial Septum * Interatrial septum not well evaluated. Right Ventricle * Not well visualized, appears to be normal size IVC * Normal IVC dimensions and inspiratory collapse. Right Atrium * Right atrium is not well visualized. Left Ventricle * LVEF is probably normal, not all wall segments visualized * Indeterminate diastolic function. Qualifiers: Chest pain type: precordial pain Qualified Code(s): R07.2 - Precordial pain (2) Depression Priority: Secondary Status: Chronic Comments: Pt denies SI/HI, feeling helpless, hopeless. Flat affect, pt is pleasant and interactive, good eye contact. Qualifiers: Depression Type: major depressive disorder Major depression recurrence: recurrent Active/Remission status: currently active Major depression episode severity: severe Psychotic features: without psychotic features Qualified Code(s): F33.2 - Major depressive disorder, recurrent severe without psychotic features (3) Diabetes Priority: Secondary Status: Chronic Comments: Hemoglobin A1c is 5.8 in December. Well controlled. Continue to monitor Accu- Cheks. Diabetic diet, sliding scale insulin as needed. A1c ordered yesterday, it is still not resulted at this time. Qualifiers: Diabetes mellitus type: type 2 Diabetes mellitus complication status: with kidney complications Diabetes mellitus complication detail: with chronic kidney disease Diabetes mellitus care home insulin use: without care home use Chronic kidney disease stage: stage 3 (moderate) Qualified Code(s): E11.22 - Type 2 diabetes mellitus with diabetic chronic kidney disease; N18.3 - Chronic kidney disease, stage 3 (moderate); N18.3 - Chronic kidney disease, stage 3 (moderate) (4) Hypothyroid Priority: Secondary Status: Chronic Comments: TSH noted to be elevated at 5. Continue levothyroxine and follow up as outpatient. Qualifiers: Hypothyroidism type: unspecified Qualified Code(s): E03.9 - Hypothyroidism , unspecified (5) CKD (chronic kidney disease) Priority: Secondary Status: Chronic Comments: Serum creatinine noted to be at baseline. Sr Cr 1.13, GFR 49. Continue to monitor closely. Avoid nephrotoxins Qualifiers: Chronic kidney disease stage: stage 3 (moderate) Qualified Code(s): N18.3 - Chronic kidney disease, stage 3 (moderate) (6) Shortness of breath at rest Priority: Secondary Status: Acute Comments: Resolved. Patient denies shortness of breath with exertion or rest today. Lungs are clear without rales, rhonchi, respiratory distress, stridor. Patient denies cough, fever or chills. Chest x-ray was negative for any acute findings , chest CTA was negative for PE, no pleural effusion, no acute pulmonary process. Chest X-Ray 03/18/17 13:08 IMPRESSION: No acute cardiopulmonary findings. D/ / Emi Roy MD / Emi Roy MD Interpreting Provider: Emi Roy MD Chest CTA 03/18/17 14:23 IMPRESSION: 1. No acute pulmonary emboli. 2. Nonspecific mild reflux of intravenous contrast into the hepatic veins which can be seen in the setting of right heart dysfunction. Normal heart size with no pericardial effusion. 3. No acute pulmonary process. D/ / 03/18/2017 15:52:07 Mukul Gallo MD / jorge Interpreting Provider: Mukul Gallo MD (7) Morbid obesity Priority: Secondary Status: Chronic Comments: Chronic. Lifestyle modifications, pt should continue diabetic, low calorie, and cardiac diet. (8) DVT prophylaxis Priority: Secondary Status: Acute Comments: EARNEST holland, pt is ambulatory in the room. - Discharge Medications Prescriptions: OxyCODONE Immed Rel [Roxicodone 5 MG] 5 mg PO Q4HR PRN #10 tablet PRN Reason: Pain Home Medications: Cyclobenzaprine [Flexeril] 10 mg PO HS 10/07/16 [History] Gabapentin [Neurontin] 300 mg PO TID 10/07/16 [History] Hydrochlorothiazide [Microzide] 12.5 mg PO DAILY 10/07/16 [History] Lovastatin 40 mg PO DAILY 10/07/16 [History] Mv-Mn/FA/Vit K/Lycop/Lut/Coq10 [Daily Multivitamin Capsule] 1 each PO DAILY 08/21 [History] Paricalcitol [Zemplar] 1 mcg PO DAILY 10/07/16 [History] Potassium Chloride [K-Tab ER] 20 meq PO DAILY 10/07/16 [History] Acetaminophen [Tylenol] 650 mg PO Q6H PRN #0 tablet 10/24/16 [Rx] Lactobacillus [Culturelle] 1 each PO BID cap.sprink 10/24/16 [Rx] Sertraline [Zoloft] 25 mg PO DAILY tablet 10/24/16 [Rx] Amino Acids/Protein Hydrolys [Pro-Stat [facility] Liquid Packet] 30 ml PO BID 03/18/17 [History] HydrOXYzine 10 mg PO TID PRN 03/18/17 [History] Levothyroxine [Synthroid] 150 mcg PO QAM 03/18/17 [History] Oxycodone HCl [Oxaydo] 5 mg PO TID 03/18/17 [History] Fluticasone Propionate Nasal [Flonase] 50 mcg NS DAILY bottle 03/22/17 [Rx] Loratadine [Claritin] 10 mg PO DAILY tablet 03/22/17 [Rx] Metoprolol [Lopressor] 12.5 mg PO BID #0 tablet 03/22/17 [Rx] OxyCODONE Immed Rel [Roxicodone 5 MG] 5 mg PO Q4HR PRN #10 tablet 03/22/17 [Rx] Allergies/Adverse Reactions: 3 Allergy/AdvReac Type Severity Reaction Status Date / Time No Known Allergies Allergy Verified 10/11/16 22:04 Date of admission: 03/18/17 17:14 Primary care physician: Marielos Awad Consults: 03/18/17 18:31 Consult to Hvac Maintenance Technician [CONS] Routine Reason for SW Consult: Return to intermediate, patient reports she and spouse were recently evicted from their home while she was at [facility] 03/19/17 14:17 Consult to Occupational Therapy [CONS] Routine Comment: Evaluate, develop and implement POC Reason for Consult: Precert for [facility] Consult to Physical Therapy [CONS] Routine Comment: Evaluate, develop and implement POC Reason for Consult: Precert for [facility] Discharging clinician: Yashira Worthington Anticipated date of discharge: 03/22/17 - Patient Status Disposition: Transfer SNF Condition: Good Functional capacity at discharge: independent ambulation Overall status at discharge: patient is back to baseline - Discharge Instructions Follow Up With: Marielos Awad MD [Primary Care Provider] - - Diet and Activity Activity: resume usual activities as tolerated Diet: diabetic diet, low fat, low cholesterol Hospital course: Ms. Bass is a 61 year old female with PMH of DM, FTT, depression, acute psychosis, morbid obesity, CKD III, HLD, hypothyroid. Presented to the ED with c /o 6/10 midsternal chest pressure, lasting approximately 30-40 minutes with associated SOB. Denies n/v/d, diaphoresis, headache, abd pain. Pt had another episode of this 2 weeks ago, did not come to hospital for evaluation. Pt has denied chest pain since arrival. See assessment and plan for hospital course. Pt requires a precertification prior to her return to [facility], social studies teacher is on board, may discharge tomorrow. Continue home medications, vitals are stable, labs are stable. Pt is ready for discharge. - Time Spent with Patient Total time spent providing and/or coordinating discharge services: Less than 30 minutes - Constitutional Vitals: Temp Pulse Resp BP Pulse Ox 97.8 F 73 17 144/78 94 03/22/17 07:14 03/22/17 07:14 03/22/17 07:14 03/22/17 07:14 03/22/17 07:14 General appearance: Present: cooperative, A&O X 3, morbidly obese, pleasant, no acute distress, answers questions appropriately - Head Head exam: Present: atraumatic, normal inspection, normocephalic - Eye Eye exam: Present: normal appearance, conjuntiva pink, sclera anicteric - Neck Neck exam general surgery: Present: supple, trachea midline. Absent: lymphadenopathy - Respiratory Respiratory exam: Present: CTAB. Absent: accessory muscle use, chest wall tenderness, decreased breath sounds, rales, rhonchi, wheezes - Cardiovascular Cardiovascular exam: Present: RRR, +S1, +S2. Absent: diastolic murmur, gallop, rubs, systolic murmur - GI/Abdominal GI/Abdominal exam: Present: normal bowel sounds, soft, no peritoneal signs. Absent: distended, hepatomegaly, tenderness - Extremities Exam Extremities exam: Present: warm, radial pulses palpable and symmetrical. Absent : calf tenderness, cyanotic, pedal edema, tenderness - Neurological Exam Neurological exam: Present: alert, oriented X3, no focal deficits. Absent: facial droop, speech deficit - Skin Skin exam: Present: dry, intact, normal color, warm. Absent: rash - VTE Documentation of Mechanical Device: Graduated compression elastic hosiery
[2017-03-23] MEDS: Fluticasone Propionate Nasal 50 MCG/SPRAY BOTTLE NS SCH (08:58)
[2017-03-23] MEDS: Gabapentin 300 MG CAPSULE PO SCH ×3 (08:59→20:30)
[2017-03-23] MEDS: hydroCHLOROthiazide 25 MG TABLET PO SCH (08:59)
[2017-03-23] MEDS: Loratadine 10 MG TABLET PO SCH (08:59)
[2017-03-23] MEDS: *HR* OxyCODONE Immed Rel 5 MG TABLET PO SCH ×3 (09:00→20:33)
--- NOTE | 2017-03-23 09:20 | Internal Med Progress Note ---
<Alison Alonso H - Last Filed: 03/23/17 10:19> Date of Encounter: 03/23/17 Time of Encounter: 09:00 - Assessment and plan (1) Chest pain Current Visit: Yes Status: Acute Assessment and plan: Atypical chest pain. Initial labs, EKG and chest x-ray showed no acute abnormality. Lipid profile within normal limits. Continue statin. Patient has been started on beta sukhjinder due to uncontrolled blood pressure. Serial troponins negative. Echocardiogram shows a suboptimal study due to body habitus but grossly normal with normal ejection fraction. Stress test was negative for ischemia or infarct, gated EF greater than 70%. Patient had an elevated d-dimer on arrival to ER. CTA chest was negative for pulmonary emboli and no acute pulmonary process. Patient denies chest pain today. She denies shortness of breath, chest pressure , chest pain, tenderness with palpation, tightness or heaviness. She denies shortness of breath, nausea, vomiting, diaphoresis. Patient is currently a resident at [facility] and intends to return back. She has also been evicted from her house due to being at rehabilitation facility. director of career services on board, patient likely requires preauthorization prior to being discharged back to longterm. Patient will be here till Wednesday. Echocardiogram 03/18/17 18:32 Impressions: LVEF is probably normal, not all wall segments visualized Technically sub-optimal due to body habitus. No significant valvular dysfunction. Qualifiers: Chest pain type: precordial pain Qualified Code(s): R07.2 - Precordial pain (2) Diabetes Current Visit: Yes Status: Chronic Assessment and plan: Hemoglobin A1c is 5.8 in December. Well controlled. Continue to monitor Accu- Cheks. -Diabetic diet, sliding scale insulin as needed. Qualifiers: Diabetes mellitus type: type 2 Diabetes mellitus complication status: with kidney complications Diabetes mellitus complication detail: with chronic kidney disease Diabetes mellitus assisted insulin use: without interpreter deaf use Chronic kidney disease stage: stage 3 (moderate) Qualified Code(s): E11.22 - Type 2 diabetes mellitus with diabetic chronic kidney disease; N18.3 - Chronic kidney disease, stage 3 (moderate); N18.3 - Chronic kidney disease, stage 3 (moderate) (3) Depression Current Visit: Yes Status: Chronic Assessment and plan: Resume home medications. -Patient denies feeling hopeless, helpless. -Monitor clinically. Qualifiers: Depression Type: major depressive disorder Major depression recurrence: recurrent Active/Remission status: currently active Major depression episode severity: severe Psychotic features: without psychotic features Qualified Code(s): F33.2 - Major depressive disorder, recurrent severe without psychotic features (4) Hypothyroid Current Visit: Yes Status: Chronic Assessment and plan: TSH noted to be elevated at 5. Continue levothyroxine and follow up as outpatient. Qualifiers: Hypothyroidism type: unspecified Qualified Code(s): E03.9 - Hypothyroidism , unspecified (5) CKD (chronic kidney disease) Current Visit: Yes Status: Chronic Assessment and plan: Serum creatinine noted to be at baseline. -Creatinine at baseline 1.13 - Avoid nephrotoxins Qualifiers: Chronic kidney disease stage: stage 3 (moderate) Qualified Code(s): N18.3 - Chronic kidney disease, stage 3 (moderate) (6) Shortness of breath at rest Current Visit: Yes Status: Acute Assessment and plan: Resolved. Patient denies shortness of breath with exertion or rest for several days. Lungs are clear without rales, rhonchi, respiratory distress, stridor. Patient denies cough, fever or chills. Chest x-ray was negative for any acute findings, chest CTA was negative for PE, no pleural effusion, no acute pulmonary process. Chest X-Ray 03/18/17 13:08 IMPRESSION: No acute cardiopulmonary findings. D/ / Emi Roy MD / Emi Roy MD Interpreting Provider: Emi Roy MD Chest CTA 03/18/17 14:23 IMPRESSION: 1. No acute pulmonary emboli. 2. Nonspecific mild reflux of intravenous contrast into the hepatic veins which can be seen in the setting of right heart dysfunction. Normal heart size with no pericardial effusion. 3. No acute pulmonary process. D/ / 03/18/2017 15:52:07 Mukul Gallo MD / jorge Interpreting Provider: Mukul Gallo MD (7) DVT prophylaxis Current Visit: No Status: Acute Assessment and plan: Patient is ambulatory in the room. EARNEST holland ordered and applied. - Subjective Interval history: Ms. Bass is a 61-year-old female past medical history of diabetes mellitus, failure to thrive, depression, psychosis, morbid obesity, chronic kidney disease type III, hyperlipidemia, and hypothyroidism. She presents to the hospital with chest pain and shortness of breath. Her workup for acute coronary syndrome was largely negative, she had an echocardiogram which showed preserved normal ejection fraction. Patient also received a CTA which was negative for PE. This morning, patient is resting comfortably and ready for discharge home to [place] where her and her currently reside as they were recently evicted from their apartment. She has no complaints of chest pain, shortness of breath, diaphoresis, nausea or vomiting. - Constitutional Vitals: Temp Pulse Resp BP Pulse Ox 98.0 F 65 17 137/83 98 03/23/17 07:05 03/23/17 07:05 03/23/17 07:05 03/23/17 07:05 03/23/17 07:05 General appearance: Present: cooperative, A&O X 3, morbidly obese, pleasant, no acute distress, answers questions appropriately - Respiratory Respiratory exam: Present: CTAB. Absent: accessory muscle use, rales, rhonchi, wheezes - Cardiovascular Cardiovascular exam: Present: RRR, +S1, +S2. Absent: diastolic murmur, gallop, rubs, systolic murmur - GI/Abdominal GI/Abdominal exam: Present: normal bowel sounds, soft, no peritoneal signs. Absent: distended, tenderness - Extremities Exam Extremities exam: Present: warm, radial pulses palpable and symmetrical. Absent : calf tenderness, cyanotic, pedal edema Internal Medicine: Result - Labs CBC & Chem 7: 03/22/17 03:29 03/22/17 03:29 - ABG Interpretation ABG results: PT/INR, D-dimer D-Dimer 618 ng/mLFEU (0-500) H 03/18/17 13:31 - VTE Documentation of Mechanical Device: Graduated compression elastic hosiery Consult Discharge Plan - Plan Referrals: Marielos Awad MD [Primary Care Provider] - Prescriptions: OxyCODONE Immed Rel [Roxicodone 5 MG] 5 mg PO Q4HR PRN #10 tablet PRN Reason: Pain <RosettaSelinaGreg Wong H - Last Filed: 03/23/17 10:55> Date of Encounter: 03/23/17 - Constitutional Vitals: Temp Pulse Resp BP Pulse Ox 98.0 F 65 17 137/83 98 03/23/17 07:05 03/23/17 07:05 03/23/17 07:05 03/23/17 07:05 03/23/17 07:05 Internal Medicine: Result - Labs CBC & Chem 7: 03/22/17 03:29 03/22/17 03:29 - ABG Interpretation ABG results: PT/INR, D-dimer D-Dimer 618 ng/mLFEU (0-500) H 03/18/17 13:31 - Attending Attestation Discharged back to ECF when placement is arranged I examined this patient and my medical decision-making was reviewed with the Resident Physician. I agree with the documented findings, disposition and treatment plan as described except to the extent set forth below.
--- NOTE | 2017-03-23 17:11 | Physician Discharge Referral ---
<Alison Alonso H - Last Filed: 03/23/17 17:09> ExtendedCare Referral Info Transfer To: [place] - Diagnosis (1) Depression Priority: Secondary Status: Chronic (2) Chest pain Priority: Primary Status: Acute (3) Diabetes Priority: Secondary Status: Chronic (4) Hypothyroid Priority: Secondary Status: Chronic (5) CKD (chronic kidney disease) Priority: Secondary Status: Chronic (6) Shortness of breath at rest Priority: Secondary Status: Acute (7) DVT prophylaxis Priority: Secondary Status: Acute - Transfer Medications Prescriptions: OxyCODONE Immed Rel [Roxicodone 5 MG] 5 mg PO Q4HR PRN #10 tablet PRN Reason: Pain Home Medications: Cyclobenzaprine [Flexeril] 10 mg PO HS 10/07/16 [History] Gabapentin [Neurontin] 300 mg PO TID 10/07/16 [History] Hydrochlorothiazide [Microzide] 12.5 mg PO DAILY 10/07/16 [History] Lovastatin 40 mg PO DAILY 10/07/16 [History] Mv-Mn/FA/Vit K/Lycop/Lut/Coq10 [Daily Multivitamin Capsule] 1 each PO DAILY 08/21 [History] Paricalcitol [Zemplar] 1 mcg PO DAILY 10/07/16 [History] Potassium Chloride [K-Tab ER] 20 meq PO DAILY 10/07/16 [History] Acetaminophen [Tylenol] 650 mg PO Q6H PRN #0 tablet 10/24/16 [Rx] Lactobacillus [Culturelle] 1 each PO BID cap.sprink 10/24/16 [Rx] Sertraline [Zoloft] 25 mg PO DAILY tablet 10/24/16 [Rx] Amino Acids/Protein Hydrolys [Pro-Stat Awc Liquid Packet] 30 ml PO BID 03/18/17 [History] HydrOXYzine 10 mg PO TID PRN 03/18/17 [History] Levothyroxine [Synthroid] 150 mcg PO QAM 03/18/17 [History] Oxycodone HCl [Oxaydo] 5 mg PO TID 03/18/17 [History] Fluticasone Propionate Nasal [Flonase] 50 mcg NS DAILY bottle 03/22/17 [Rx] Loratadine [Claritin] 10 mg PO DAILY tablet 03/22/17 [Rx] Metoprolol [Lopressor] 12.5 mg PO BID #0 tablet 03/22/17 [Rx] OxyCODONE Immed Rel [Roxicodone 5 MG] 5 mg PO Q4HR PRN #10 tablet 03/22/17 [Rx] Allergies/Adverse Reactions: 3 Allergy/AdvReac Type Severity Reaction Status Date / Time No Known Allergies Allergy Verified 10/11/16 22:04 - Respiratory Orders Smoking Cessation: Smoking cessation has been advised. For more information, call the [employer] Quit Line at 8-651-FCUF-NOW. - Mobility Orders Ambulate - Rehabiliation Orders Rehab Potential: Good Rehab Orders: Evaluation for Physical Therapy, Evaluation for Occupational Therapy - Diet Orders Cardiac CERTIFICATION: I certify that the transfer of the above named patient to an Extended Care Facility is necessary for the continuing treatment of the diagnosis listed. The above information is true and accurate reflection of patient's current condition. Confidential - Redisclosure prohibited without a patient's written consent. <Greg Rosa - Last Filed: 03/24/17 13:51> - Respiratory Orders Smoking Cessation: Smoking cessation has been advised. For more information, call the [employer] Quit Line at 4-120-XQNS-QBG. CERTIFICATION: I certify that the transfer of the above named patient to an Extended Care Facility is necessary for the continuing treatment of the diagnosis listed. The above information is true and accurate reflection of patient's current condition. Confidential - Redisclosure prohibited without a patient's written consent.
[2017-03-24 05:25] LABS: Basophils # 0.1 K/mcL (0.0-0.2); Basophils % 0.9 %; Eosinophils # 0.2 K/mcL (0.0-0.6); Eosinophils % 2.8 %; Hematocrit 44.7 % (35.3-44.9); Hemoglobin 14.4 g/dL (11.5-15.4); Immature Granulocytes % 0.3 % (0-4); Lymphocytes # 1.9 K/mcL (0.6-4.6); Mean Corpuscular HGB Conc 32.2 g/dL (31.6-35.5); Mean Corpuscular Hemoglobin 27.7 pg (28.0-33.3); Mean Corpuscular Volume 86.1 fL (83.0-100.0); Mean Platelet Volume 10.9 fL (9.4-12.4); Monocytes # 0.7 K/mcL (0.0-1.3); Neutrophils # 3.8 K/mcL (1.6-8.9); Platelet Count 302 K/mcL (140-400); Red Blood Count 5.19 M/mcL (3.82-4.97); Red Cell Distribution Width 15.1 % (11.5-14.5)
[2017-03-24 05:31] LABS: Calcium 10.1 mg/dL (8.6-10.8)
[2017-03-24 05:46] LABS: Potassium 3.7 mEq/L (3.5-4.5)
--- NOTE | 2017-03-24 09:31 | Internal Med Progress Note ---
<Alison Alonso - Last Filed: 03/24/17 09:29> Date of Encounter: 03/24/17 Time of Encounter: 09:29 - Assessment and plan (1) Depression Current Visit: Yes Status: Chronic Assessment and plan: Resume home medications. -Patient denies feeling hopeless, helpless. However, her gearcase assembler his urging us to consider psych inpatient replacement for severe depression. -We will consult psychiatry and follow their recommendations. Qualifiers: Depression Type: major depressive disorder Major depression recurrence: recurrent Active/Remission status: currently active Major depression episode severity: severe Psychotic features: without psychotic features Qualified Code(s): F33.2 - Major depressive disorder, recurrent severe without psychotic features (2) Chest pain Current Visit: Yes Status: Acute Assessment and plan: Atypical chest pain. Initial labs, EKG and chest x-ray showed no acute abnormality. Lipid profile within normal limits. Continue statin. Patient has been started on beta sukhjinder due to uncontrolled blood pressure. Serial troponins negative. Echocardiogram shows a suboptimal study due to body habitus but grossly normal with normal ejection fraction. Stress test was negative for ischemia or infarct, gated EF greater than 70%. Patient had an elevated d-dimer on arrival to ER. CTA chest was negative for pulmonary emboli and no acute pulmonary process. Patient denies chest pain today. She denies shortness of breath, chest pressure , chest pain, tenderness with palpation, tightness or heaviness. She denies shortness of breath, nausea, vomiting, diaphoresis. -Patient is currently a resident at [facility] and intends to return back. She has also been evicted from her house due to being at rehabilitation facility. ancillary services manager therapy on board, patient likely requires preauthorization [facility]. -Placement is an issue. According to social work, they are still working on placement. Qualifiers: Chest pain type: precordial pain Qualified Code(s): R07.2 - Precordial pain (3) Diabetes Current Visit: Yes Status: Chronic Assessment and plan: Hemoglobin A1c is 5.8 in December. Well controlled. Continue to monitor Accu- Cheks. -Diabetic diet, sliding scale insulin as needed. Qualifiers: Diabetes mellitus type: type 2 Diabetes mellitus complication status: with kidney complications Diabetes mellitus complication detail: with chronic kidney disease Diabetes mellitus residential insulin use: without termite control representative use Chronic kidney disease stage: stage 3 (moderate) Qualified Code(s): E11.22 - Type 2 diabetes mellitus with diabetic chronic kidney disease; N18.3 - Chronic kidney disease, stage 3 (moderate); N18.3 - Chronic kidney disease, stage 3 (moderate) (4) Hypothyroid Current Visit: Yes Status: Chronic Assessment and plan: TSH noted to be elevated at 5. Continue levothyroxine and follow up as outpatient. Qualifiers: Hypothyroidism type: unspecified Qualified Code(s): E03.9 - Hypothyroidism , unspecified (5) CKD (chronic kidney disease) Current Visit: Yes Status: Chronic Assessment and plan: Serum creatinine noted to be at baseline. -Creatinine at baseline 1.13 - Avoid nephrotoxins Qualifiers: Chronic kidney disease stage: stage 3 (moderate) Qualified Code(s): N18.3 - Chronic kidney disease, stage 3 (moderate) (6) Shortness of breath at rest Current Visit: Yes Status: Acute Assessment and plan: Resolved. Patient denies shortness of breath with exertion or rest for several days. Lungs are clear without rales, rhonchi, respiratory distress, stridor. Patient denies cough, fever or chills. Chest x-ray was negative for any acute findings, chest CTA was negative for PE, no pleural effusion, no acute pulmonary process. (7) DVT prophylaxis Current Visit: No Status: Acute Assessment and plan: Patient is ambulatory in the room. EARNEST holland ordered and applied. - Subjective Interval history: Ms. Bass is a 61-year-old female past medical history of diabetes mellitus, failure to thrive, depression, psychosis, morbid obesity, chronic kidney disease type III, hyperlipidemia, and hypothyroidism. She presents to the hospital with chest pain and shortness of breath. Her workup for acute coronary syndrome was largely negative, she had an echocardiogram which showed preserved normal ejection fraction. Patient also received a CTA which was negative for PE. This morning, patient is resting comfortably. She states her son is going to pick her up. She believes he is going to let her stay with him. She has no complaints of chest pain, shortness of breath, diaphoresis, nausea or vomiting. - Constitutional Vitals: Temp Pulse Resp BP Pulse Ox 98.4 F 72 16 139/88 94 03/24/17 07:40 03/24/17 07:40 03/24/17 07:40 03/24/17 07:40 03/24/17 07:40 General appearance: Present: cooperative, A&O X 3, morbidly obese, pleasant, no acute distress, answers questions appropriately - Respiratory Respiratory exam: Present: CTAB. Absent: accessory muscle use, rales, rhonchi, wheezes - Cardiovascular Cardiovascular exam: Present: RRR, +S1, +S2. Absent: diastolic murmur, gallop, rubs, systolic murmur - GI/Abdominal GI/Abdominal exam: Present: normal bowel sounds, soft, no peritoneal signs. Absent: distended, tenderness - Extremities Exam Extremities exam: Present: warm, radial pulses palpable and symmetrical. Absent : calf tenderness, cyanotic, pedal edema Internal Medicine: Result - Labs CBC & Chem 7: 03/24/17 04:16 03/24/17 04:16 Labs: Short CBC 03/24/17 Range/Units 04:16 WBC 6.7 (4.3-11.1) K/mcL Hgb 14.4 (11.5-15.4) g/dL Hct 44.7 (35.3-44.9) % Plt Count 302 (140-400) K/mcL Neutrophils # 3.8 (1.6-8.9) K/mcL BMP 03/24/17 04:16 Sodium 139 Potassium 3.7 Chloride 102 Carbon Dioxide 28 BUN 25 H Creatinine 1.16 H Glucose 113 H Calcium 10.1 - ABG Interpretation ABG results: PT/INR, D-dimer D-Dimer 618 ng/mLFEU (0-500) H 03/18/17 13:31 - VTE Documentation of Mechanical Device: Graduated compression elastic hosiery Consult Discharge Plan - Plan Instructions: Sertraline (By mouth), Oxycodone, Rapid Release (By mouth), Chest Pain (DC), Depression (DC) Referrals: Marielos Awad MD [Primary Care Provider] - 04/08/17 4:30 pm Prescriptions: OxyCODONE Immed Rel [Roxicodone 5 MG] 5 mg PO Q4HR PRN #10 tablet PRN Reason: Pain <Greg Rosa H - Last Filed: 03/24/17 14:29> Date of Encounter: 03/24/17 - Constitutional Vitals: Temp Pulse Resp BP Pulse Ox 98.3 F 79 16 134/71 97 03/24/17 11:34 03/24/17 11:34 03/24/17 11:34 03/24/17 11:34 03/24/17 11:34 Internal Medicine: Result - Labs CBC & Chem 7: 03/24/17 04:16 03/24/17 04:16 Labs: Short CBC 03/24/17 Range/Units 04:16 WBC 6.7 (4.3-11.1) K/mcL Hgb 14.4 (11.5-15.4) g/dL Hct 44.7 (35.3-44.9) % Plt Count 302 (140-400) K/mcL Neutrophils # 3.8 (1.6-8.9) K/mcL BMP 03/24/17 04:16 Sodium 139 Potassium 3.7 Chloride 102 Carbon Dioxide 28 BUN 25 H Creatinine 1.16 H Glucose 113 H Calcium 10.1 - ABG Interpretation ABG results: PT/INR, D-dimer D-Dimer 618 ng/mLFEU (0-500) H 03/18/17 13:31 - Attending Attestation Psychiatry was consulted due to severe depression, she was recommended to increase her Zoloft up to 50 mg daily and follow up as an outpatient. The prescription will be provided I examined this patient and my medical decision-making was reviewed with the Resident Physician. I agree with the documented findings, disposition and treatment plan as described except to the extent set forth below.
[2017-03-24] MEDS: *HR* OxyCODONE Immed Rel 5 MG TABLET PO SCH (10:19)
[2017-03-24] MEDS: hydroCHLOROthiazide 25 MG TABLET PO SCH (10:19)
[2017-03-24] MEDS: Loratadine 10 MG TABLET PO SCH (10:19)
[2017-03-24] MEDS: Fluticasone Propionate Nasal 50 MCG/SPRAY BOTTLE NS SCH (10:19)
[2017-03-24] MEDS: Gabapentin 300 MG CAPSULE PO SCH (10:19)
[2017-03-24 11:35] VITALS: BP 134/71
--- NOTE | 2017-03-24 14:17 | Consult Note ---
Date of Encounter: 03/24/17 Time of Encounter: 13:50 Assessment & Recommendation (1) Depression Status: Chronic Assessment & Recommendation: Patient has a long-standing history of depression and currently has a lot of social stressors. She denies suicidal ideation. Willing to try an increase in Zoloft. Recommend increase to 50 mg by mouth daily. Encouraged patient to consider outpatient therapy. Patient willing to return to the hospital if depression symptoms worsen. Patient does not meet criteria for inpatient psychiatric stabilization. Recommend outpatient follow-up. Qualifiers: Depression Type: major depressive disorder Major depression recurrence: recurrent Active/Remission status: currently active Major depression episode severity: severe Psychotic features: without psychotic features Qualified Code(s): F33.2 - Major depressive disorder, recurrent severe without psychotic features (2) Anxiety Status: Acute Assessment & Recommendation: Encouraged patient to consider therapy once she has found a stable place to live. History of Present Illness Patient: new to practice Requesting Physician: Greg Rosa Reason for consult: Depression History of present illness: Ms. Bass is a 61 year old female with a history of depression and multiple medical issues and multiple psychosocial stressors. Patient initially presented to the hospital with chest pain and was treated medically for this. She does report a lot of stressors including the fact that she currently has no place to stay. She and her will apparently be moving in with her son for short period of time and then perhaps moving to [place] to stay with her daughter. Patient states that she is worried about the fact that she may not have a place to stay but she feels that God has provided for her until now and she is faithful that he will continue to provide what she needs. She denies any suicidal or homicidal ideation, intent, or plan. She does not feel that she needs therapy right now. She is taking Zoloft and states that it can be helpful for her. She is willing to increase the dosage of Zoloft to help with some of her anxiety symptoms. She reports that there are chocolate helps with her depression. She denies auditory or visual hallucinations. She has no previous psych admissions. She denies illicit drug, tobacco, alcohol use. The patient considers her yazidism beliefs to be very important to her and this helps her stay strong emotionally. CC: Greg Rosa Past Med Surg Social Fam HX - Past Medical History Medical history: diabetes, hyperlipidemia, hypertension, renal disease, thyroid disease, other - Past Psychiatric History Psychiatric history: Reports: depression. Denies: prior suicide attempt, previous psychiatric hospitalization Past psychiatric history details: Has been treated on an outpatient basis for depression but does not have a psychiatrist. No current therapist. Family psychiatric history: No Family History of Suicide: None - Past Surgical History Surgical History: knee replacement, other - Social History Smoking Status: Former smoker Smokeless Tobacco Status: No Alcohol use: none Drug use: none Current living situation: Homeless Activity Level: Independent ambulation - Family History Mother Adopted: No Family Member Ethnicity: Non- Living Status: Hx Family Cardiac Disorders: No Hx Family Respiratory Disorders: No Hx Family Cancer: Yes Hx Family GI Disorders: No Hx Family Endocrine Disorder: No Hx Family Neuromuscular Disorders: No Hx Family Neurologic Disorders: No Hx Family HEENT Disorders: No Hx Family Autoimmune Disorders: No Father Adopted: No Family Member Ethnicity: Non- Living Status: Hx Family Cardiac Disorders: Yes Hx Family Respiratory Disorders: No Hx Family Cancer: Yes Hx Family GI Disorders: No Hx Family Endocrine Disorder: No Hx Family Neuromuscular Disorders: No Hx Family Neurologic Disorders: No Hx Family HEENT Disorders: No Hx Family Autoimmune Disorders: No Medications & Allergies Cyclobenzaprine [Flexeril] 10 mg PO HS 10/07/16 [History] Gabapentin [Neurontin] 300 mg PO TID 10/07/16 [History] Hydrochlorothiazide [Microzide] 12.5 mg PO DAILY 10/07/16 [History] Lovastatin 40 mg PO DAILY 10/07/16 [History] Mv-Mn/FA/Vit K/Lycop/Lut/Coq10 [Daily Multivitamin Capsule] 1 each PO DAILY 08/21 [History] Paricalcitol [Zemplar] 1 mcg PO DAILY 10/07/16 [History] Potassium Chloride [K-Tab ER] 20 meq PO DAILY 10/07/16 [History] Acetaminophen [Tylenol] 650 mg PO Q6H PRN #0 tablet 10/24/16 [Rx] Lactobacillus [Culturelle] 1 each PO BID cap.sprink 10/24/16 [Rx] Sertraline [Zoloft] 25 mg PO DAILY tablet 10/24/16 [Rx] Amino Acids/Protein Hydrolys [Pro-Stat Awc Liquid Packet] 30 ml PO BID 03/18/17 [History] HydrOXYzine 10 mg PO TID PRN 03/18/17 [History] Levothyroxine [Synthroid] 150 mcg PO QAM 03/18/17 [History] Oxycodone HCl [Oxaydo] 5 mg PO TID 03/18/17 [History] Fluticasone Propionate Nasal [Flonase] 50 mcg NS DAILY bottle 03/22/17 [Rx] Loratadine [Claritin] 10 mg PO DAILY tablet 03/22/17 [Rx] Metoprolol [Lopressor] 12.5 mg PO BID #0 tablet 03/22/17 [Rx] OxyCODONE Immed Rel [Roxicodone 5 MG] 5 mg PO Q4HR PRN #10 tablet 03/22/17 [Rx] Sertraline [Zoloft] 50 mg PO DAILY #30 tablet 03/24/17 [Rx] 3 Allergy/AdvReac Type Severity Reaction Status Date / Time No Known Allergies Allergy Verified 10/11/16 22:04 Review of Systems Constitutional: Denies: fever, chills, weakness, weight change Eyes: Denies: eye pain, vision change Ears, Nose, Throat: Denies: ear pain, throat pain, dental pain, hearing loss, congestion Cardiovascular: Denies: chest pain, palpitations, dyspnea on exertion Respiratory: Denies: cough, dyspnea, wheezes Gastrointestinal: Denies: abdominal pain, nausea, vomiting, diarrhea, constipation Genitourinary male: Denies: urgency, dysuria, frequency, genital lesions Genitourinary female: Denies: urgency, dysuria, frequency, abnormal menses, dyspareunia Musculoskeletal: Reports: back pain Integumentary: Denies: rash, lesions, pruritus Neurological: Denies: headache, weakness, numbness, memory loss Psychiatric: Reports: depression, anxiety. Denies: abnormal sleep pattern, suicidal ideation, difficulty concentrating, hopelessness, irritability, mood swings Endocrine: Denies: fatigue, heat or cold intolerance Hematologic/Lymphatic: Denies: easy bruising, lymphadenopathy Allergic/Immunologic: Denies: urticaria, itchy eyes Mental Status Exam Patient orientation: Yes Person Level of alertness: Alert Patient appearance: Appropriate Behavior: calm, cooperative Psychomotor activity: Normal Eye contact: Maintains Eye Contact Mood description: Euthymic/stable Affect description: other (mildly dysphoric) Speech pattern: Normal rate, Normal rhythm, Normal tone Speech volume: Normal Thought process: Intact, Goal Oriented Thought content: No Suicidal ideation, No Homicidal ideation Perceptual disturbances: No Auditory hallucinations, No Visual hallucinations Attention span: Capable of Focused Attention Memory description: Grossly Intact Patient reliability: Reliable Historian Intelligence estimate: Average Judgment: Fair Insight: Partial Results - Vital Signs Vital signs: Temp Pulse Resp BP Pulse Ox 98.3 F 79 16 134/71 97 03/24/17 11:34 03/24/17 11:34 03/24/17 11:34 03/24/17 11:34 03/24/17 11:34 - Labs Labs: Laboratory Last Values WBC 6.7 K/mcL (4.3-11.1) 03/24/17 04:16 RBC 5.19 M/mcL (3.82-4.97) H 03/24/17 04:16 Hgb 14.4 g/dL (11.5-15.4) 03/24/17 04:16 Hct 44.7 % (35.3-44.9) 03/24/17 04:16 MCV 86.1 fL (83.0-100.0) 03/24/17 04:16 MCH 27.7 pg (28.0-33.3) L 03/24/17 04:16 MCHC 32.2 g/dL (31.6-35.5) 03/24/17 04:16 RDW 15.1 % (11.5-14.5) H 03/24/17 04:16 Plt Count 302 K/mcL (140-400) 03/24/17 04:16 MPV 10.9 fL (9.4-12.4) 03/24/17 04:16 Immature Gran % 0.3 % (0-4) 03/24/17 04:16 Seg Neutrophils % 57.0 % 03/24/17 04:16 Lymphocytes % 29.0 % 03/24/17 04:16 Monocytes % 10.0 % 03/24/17 04:16 Eosinophils % 2.8 % 03/24/17 04:16 Basophils % 0.9 % 03/24/17 04:16 Neutrophils # 3.8 K/mcL (1.6-8.9) 03/24/17 04:16 Lymphocytes # 1.9 K/mcL (0.6-4.6) 03/24/17 04:16 Monocytes # 0.7 K/mcL (0.0-1.3) 03/24/17 04:16 Eosinophils # 0.2 K/mcL (0.0-0.6) 03/24/17 04:16 Basophils # 0.1 K/mcL (0.0-0.2) 03/24/17 04:16 Immature Plt Fraction 4.6 % (1.1-6.1) 03/21/17 06:30 D-Dimer 618 ng/mLFEU (0-500) H 03/18/17 13:31 Sodium 139 mEq/L (136-145) 03/24/17 04:16 Potassium 3.7 mEq/L (3.5-4.5) 03/24/17 04:16 Chloride 102 mEq/L (98-109) 03/24/17 04:16 Carbon Dioxide 28 mEq/L (19-29) 03/24/17 04:16 BUN 25 mg/dL (7-20) H 03/24/17 04:16 Creatinine 1.16 mg/dL (0.57-1.11) H 03/24/17 04:16 Est GFR ( Amer) 58 (> 60) L 03/24/17 04:16 Est GFR (Non-Af Amer) 48 (> 60) L 03/24/17 04:16 BUN/Creatinine Ratio 22 (6-26) 03/24/17 04:16 Glucose 113 mg/dL (70-99) H 03/24/17 04:16 POC Glucose 119 (58-89) H 03/23/17 20:36 Est Mean Plasma Glucose 120 mg/dl 03/21/17 06:30 Hemoglobin A1c 5.8 % (-5.6) H 03/21/17 06:30 Calculated Osmolality 293 (280-300) 03/24/17 04:16 Calcium 10.1 mg/dL (8.6-10.8) 03/24/17 04:16 Magnesium 1.8 mg/dL (1.6-2.6) 03/19/17 01:02 Troponin I 0.00 ng/mL (0-0.03) 03/19/17 01:02 Triglycerides 127 mg/dL (< 150) 03/19/17 01:02 Cholesterol 167 mg/dL (< 200) 03/19/17 01:02 LDL Cholesterol, Calc 97 mg/dL (0-99) 03/19/17 01:02 VLDL Cholesterol, Calc 25 mg/dL (< 31) 03/19/17 01:02 HDL Cholesterol 45 mg/dL (40-59) 03/19/17 01:02 Cholesterol/HDL Ratio 3.7 (0-4.9) 03/19/17 01:02 TSH 5.157 mcIU/mL (0.350-4.840) H 03/19/17 01:02 Consult Discharge Plan - Plan Instructions: Sertraline (By mouth), Oxycodone, Rapid Release (By mouth), Chest Pain (DC), Depression (DC) Referrals: Marielos Awad MD [Primary Care Provider] - 04/08/17 4:30 pm Prescriptions: OxyCODONE Immed Rel [Roxicodone 5 MG] 5 mg PO Q4HR PRN #10 tablet PRN Reason: Pain Sertraline [Zoloft] 50 mg PO DAILY #30 tablet
== END 2017-03-24 15:12 | disposition home or self-care (01) ==
LOC: EMEROO 13:00 → 3BNU 13:00 → SUATTDRO 17:14 → 3BNU 18:42
PROVIDERS: ADMIT Internal Medicine; ATTEND Internal Medicine

== ENCOUNTER 2017-05-24 18:41 | Observation (INO) ==
--- NOTE | 2017-05-24 18:47 | Emergency Department Note ---
Disposition Clinical Impression: Acute kidney injury, Generalized weakness UTI (urinary tract infection) Qualifiers: Urinary tract infection type: acute cystitis Hematuria presence: without hematuria Qualified Code(s): N30.00 - Acute cystitis without hematuria Disposition: Admitted As Inpatient Condition: Fair Referrals: Marielos Awad MD [Primary Care Provider] - Forms: ED Satisfaction Letter Time of Disposition: 20:51 General Adult HPI - General Chief complaint: ED Weakness Stated complaint: weakness Time Seen by Provider: 05/24/17 18:43 Source: patient, EMS Mode of arrival: EMS Limitations: no limitations Nursing Notes Reviewed: Yes Vital Signs Reviewed: Yes - History of Present Illness HPI Narrative: 61-year-old who squad states they were out to see her about a week ago he went out to pick her up today because she was having some chest discomfort and found her lying on the couch with a headache after a week before. They state that the patient had not got off the couch to use the bathroom she just went as she sat on the couch. She had some generalized weakness and had difficulty ambulating. She states that the chest pain has since resolved. States it lasted about an hour and it was across her anterior chest. Pt Subjective Complaint: Chest pain generalized weakness Onset (ago): Just [employer]AL [employer] Location: chest Radiation: non-radiation Pain Severity: moderate Quality: aching Consistency: now resolved Worsens with: nothing Associated symptoms: Reports: weakness (Generalized) Treatments Prior to Arrival: none - Related Data Home Medications Medication Instructions Recorded Confirmed Cyclobenzaprine [Flexeril] 10 mg PO HS 10/07/16 03/18/17 Gabapentin [Neurontin] 300 mg PO TID 10/07/16 03/18/17 Hydrochlorothiazide [Microzide] 12.5 mg PO DAILY 10/07/16 03/18/17 Lovastatin 40 mg PO DAILY 10/07/16 03/18/17 Mv-Mn/FA/Vit K/Lycop/Lut/Coq10 1 each PO DAILY 10/07/16 03/18/17 [Daily Multivitamin Capsule] Paricalcitol [Zemplar] 1 mcg PO DAILY 10/07/16 03/18/17 Potassium Chloride [K-Tab ER] 20 meq PO DAILY 10/07/16 03/18/17 Amino Acids/Protein Hydrolys 30 ml PO BID 03/18/17 03/18/17 [Pro-Stat Awc Liquid Packet] HydrOXYzine 10 mg PO TID PRN 03/18/17 03/18/17 Levothyroxine [Synthroid] 150 mcg PO QAM 03/18/17 03/18/17 Oxycodone HCl [Oxaydo] 5 mg PO TID 03/18/17 03/18/17 Previous Rx's Medication Instructions Recorded Acetaminophen [Tylenol] 650 mg PO Q6H PRN #0 tablet 10/24/16 Lactobacillus [Culturelle] 1 each PO BID cap.sprink 10/24/16 Sertraline [Zoloft] 25 mg PO DAILY tablet 10/24/16 Fluticasone Propionate Nasal 50 mcg NS DAILY bottle 03/22/17 [Flonase] Loratadine [Claritin] 10 mg PO DAILY tablet 03/22/17 Metoprolol [Lopressor] 12.5 mg PO BID #0 tablet 03/22/17 OxyCODONE Immed Rel [Roxicodone 5 5 mg PO Q4HR PRN #10 tablet 03/22/17 MG] Sertraline [Zoloft] 50 mg PO DAILY #30 tablet 03/24/17 Allergies Allergy/AdvReac Type Severity Reaction Status Date / Time No Known Allergies Allergy Verified 10/11/16 22:04 Constitutional: Denies: fever, chills, weakness, weight change Eyes: Denies: eye pain, eye discharge, vision change ENT ED: Denies: ear pain, throat pain, dental pain, hearing loss, epistaxis, congestion, dysphagia Cardiovascular: Reports: chest pain. Denies: palpitations, dyspnea on exertion , edema, syncope Respiratory: Denies: cough, dyspnea, wheezes, hemoptysis, stridor Gastrointestinal: Denies: abdominal pain, nausea, vomiting, diarrhea, constipation, hematemesis, melena, hematochezia Genitourinary: Denies: dysuria, frequency, hematuria, discharge Musculoskeletal: Denies: back pain, neck pain, arthralgia, myalgia Integumentary: Denies: rash, abrasion, lesions Neurological: Reports: weakness (Generalized). Denies: headache, numbness, paresthesias, confusion, abnormal gait, vertigo Psychiatric: Denies: anxiety, depression, suicidal thoughts, homicidal thoughts , auditory hallucinations, visual hallucinations Endocrine: Denies: fatigue Hematological/Lymphatic: Denies: easy bleeding, easy bruising Allergic/Immunologic: Denies: facial swelling, urticaria Past Medical History - Past Medical History Medical history: Reports: diabetes, hyperlipidemia, hypertension, renal disease , thyroid disease, other Surgical history: Reports: knee replacement, other Psychiatric history: Reports: depression. Denies: prior suicide attempt, previous psychiatric hospitalization - Social History Smoking Status: Former smoker Smokeless Tobacco Status: No Alcohol use: Reports: none Drug use: Reports: none Physical Exam - General Limitations: no limitations General appearance: alert, in no apparent distress - Head Head exam: atraumatic, normocephalic, normal inspection - Eye Eye exam: Present: normal appearance, PERRL, EOMI - ENT ENT exam: normal exam, normal oropharynx, mucous membranes moist - Neck Neck exam: Present: normal inspection, full ROM, trachea midline - Chest Chest inspection: Present: normal inspection, symmetric chest wall rise - Cardiovascular Cardiovascular exam: Present: regular rate, normal rhythm, normal heart sounds - Abdominal Exam Abdominal exam: Present: soft, Non-Tender. Absent: tenderness, distention, guarding, rebound, rigidity - Extremities Exam Extremities exam: Present: normal inspection, full ROM. Absent: tenderness, pedal edema - Expanded Lower Extremity Exam Neurovascular/Tendon exam: Absent: motor deficit, sensory deficit, tendon deficit Gait: not tested/not observed - Back Exam Back exam: Present: normal inspection, full ROM. Absent: tenderness - Neurological Exam Neurological exam: Present: alert, oriented X3. Absent: motor sensory deficit - Psychiatric Psychiatric exam: Present: normal affect, normal mood - Skin Skin exam: Present: warm, dry, intact, normal color Course - Reevaluation(s) Reevaluation #1: 61-year-old generalized weakness who comes in complaining of inability to get around. Squad states that she's been on her couch for a week or so. Patient did have chest pain prior to arrival that lasted about an hour and resolved on its own. Included a urine which appears to show infection. White count 16,000. Patient was treated with IV antibiotics will be admitted for IV hydration. Time: 20:51 - Consultations Consultation #1: Discussed with , admit. Time: 20:51 Vital Signs Temperature 97.5 F L 05/24/17 19:15 Pulse Rate 99 05/24/17 19:15 Respiratory Rate 14 05/24/17 19:15 Blood Pressure 114/71 05/24/17 19:15 O2 Sat by Pulse Oximetry 96 05/24/17 19:15 Temperature 97.5 F L 05/24/17 19:15 Pulse Rate 99 05/24/17 19:15 Respiratory Rate 14 05/24/17 19:15 Blood Pressure 114/71 05/24/17 19:15 O2 Sat by Pulse Oximetry 96 05/24/17 19:15 Oxygen Delivery Oxygen Delivery Room Air Medical Decision Making - Lab Data Lab results reviewed: Yes I reviewed the patient's lab results. Result diagrams: 05/24/17 20:09 05/24/17 20:09 Lab Results 05/24/17 05/24/17 05/24/17 Range/Units 19:16 20:09 20:09 WBC 16.0 H (4.3-11.1) K/mcL RBC 6.44 H (3.82-4.97) M/mcL Hgb 18.7 H (11.5-15.4) g/dL Hct 58.0 H (35.3-44.9) % MCV 90.1 (83.0-100.0) fL MCH 29.0 (28.0-33.3) pg MCHC 32.2 (31.6-35.5) g/dL RDW 17.5 H (11.5-14.5) % Plt Count 447 H (140-400) K/mcL MPV 11.2 (9.4-12.4) fL Immature Gran % 0.3 (0-4) % Seg Neutrophils % 86.6 % Lymphocytes % 6.9 % Monocytes % 5.7 % Eosinophils % 0.1 % Basophils % 0.4 % Neutrophils # 13.9 H (1.6-8.9) K/mcL Lymphocytes # 1.1 (0.6-4.6) K/mcL Monocytes # 0.9 (0.0-1.3) K/mcL Eosinophils # 0.0 (0.0-0.6) K/mcL Basophils # 0.1 (0.0-0.2) K/mcL Sodium 145 (136-145) mEq/L Potassium 3.4 L (3.5-4.5) mEq/L Chloride 107 (98-109) mEq/L Carbon Dioxide 24 (19-29) mEq/L BUN 30 H (7-20) mg/dL Creatinine 1.62 H (0.57-1.11) mg/dL Est GFR ( Amer) 39 L (> 60) Est GFR (Non-Af Amer) 32 L (> 60) BUN/Creatinine Ratio 19 (6-26) Glucose 134 H (70-99) mg/dL Calculated Osmolality 308 H (280-300) Calcium 10.4 (8.6-10.8) mg/dL Total Bilirubin 1.2 (0.2-1.2) mg/dL AST 19 (5-34) Units/L ALT 15 (0-55) Units/L Alkaline Phosphatase 94 (38-126) Units/L Troponin I (0-0.03) ng/mL Serum Total Protein 8.7 H (6.0-8.3) g/dL Albumin 3.5 (3.5-5.0) g/dL Globulin 5.2 H (2.4-3.5) g/dL Albumin/Globulin Ratio 0.7 L (1.1-2.2) Urine Color Dark Yellow (Yellow) Urine Clarity Turbid A (Clear) Urine pH 6.0 (5.0-8.0) pH Units Ur Specific [place] > 1.030 H (1.010-1.025) Urine Protein 100 H (Neg-Trace) mg/dL Urine Glucose (UA) Normal (Normal) mg/dL Urine Ketones 15 H (Negative) mg/dL Urine Blood Negative (Negative) Urine Nitrite Negative (Negative) Urine Bilirubin Moderate H (Negative) Urine Urobilinogen Normal (Normal) mg/dL Ur Leukocyte Esterase Negative (Negative) Urine Microscopic RBC 3-5 H (0-3) per hpf Urine Microscopic WBC 15-30 H (0-3) per hpf Ur Squamous Epith Cells Many H (None-Few) per lpf Ur Renal Epithelial Cell Few (None-Few) per hpf Other Crystals Present Urine Bacteria Few (None-Few) per hpf Hyaline Casts Few (None-Few) per lpf Urine Mucus Many H (Few) Ur Oval Fat Bodies Present A (Not Present) Ur Culture Indicated? NO (NO) 05/24/17 Range/Units 20:09 WBC (4.3-11.1) K/mcL RBC (3.82-4.97) M/mcL Hgb (11.5-15.4) g/dL Hct (35.3-44.9) % MCV (83.0-100.0) fL MCH (28.0-33.3) pg MCHC (31.6-35.5) g/dL RDW (11.5-14.5) % Plt Count (140-400) K/mcL MPV (9.4-12.4) fL Immature Gran % (0-4) % Seg Neutrophils % % Lymphocytes % % Monocytes % % Eosinophils % % Basophils % % Neutrophils # (1.6-8.9) K/mcL Lymphocytes # (0.6-4.6) K/mcL Monocytes # (0.0-1.3) K/mcL Eosinophils # (0.0-0.6) K/mcL Basophils # (0.0-0.2) K/mcL Sodium (136-145) mEq/L Potassium (3.5-4.5) mEq/L Chloride (98-109) mEq/L Carbon Dioxide (19-29) mEq/L BUN (7-20) mg/dL Creatinine (0.57-1.11) mg/dL Est GFR ( Amer) (> 60) Est GFR (Non-Af Amer) (> 60) BUN/Creatinine Ratio (6-26) Glucose (70-99) mg/dL Calculated Osmolality (280-300) Calcium (8.6-10.8) mg/dL Total Bilirubin (0.2-1.2) mg/dL AST (5-34) Units/L ALT (0-55) Units/L Alkaline Phosphatase (38-126) Units/L Troponin I 0.03 (0-0.03) ng/mL Serum Total Protein (6.0-8.3) g/dL Albumin (3.5-5.0) g/dL Globulin (2.4-3.5) g/dL Albumin/Globulin Ratio (1.1-2.2) Urine Color (Yellow) Urine Clarity (Clear) Urine pH (5.0-8.0) pH Units Ur Specific [place] (1.010-1.025) Urine Protein (Neg-Trace) mg/dL Urine Glucose (UA) (Normal) mg/dL Urine Ketones (Negative) mg/dL Urine Blood (Negative) Urine Nitrite (Negative) Urine Bilirubin (Negative) Urine Urobilinogen (Normal) mg/dL Ur Leukocyte Esterase (Negative) Urine Microscopic RBC (0-3) per hpf Urine Microscopic WBC (0-3) per hpf Ur Squamous Epith Cells (None-Few) per lpf Ur Renal Epithelial Cell (None-Few) per hpf Other Crystals Urine Bacteria (None-Few) per hpf Hyaline Casts (None-Few) per lpf Urine Mucus (Few) Ur Oval Fat Bodies (Not Present) Ur Culture Indicated? (NO) - Radiology Data Radiology results reviewed: Yes I reviewed the patient's radiology results. Chest X-Ray 05/24/17 18:44 IMPRESSION: Mild atelectasis and trace pleural effusion at the left lung base. D/ / Jj Foster MD / Jj Foster MD Interpreting Provider: Jj Foster MD Head CT 05/24/17 18:44 IMPRESSION: 1. No acute intracranial abnormality. 2. Mild chronic white matter microvascular ischemic changes. D/ / Pj Zhao / Pj Zhao Interpreting Provider: Pj Zhao - EKG Data EKG #1 EKG attestation: Yes I reviewed and interpreted this EKG. EKG shows normal: sinus rhythm Rate: normal Rhythm: NSR Interpretation: no acute changes NIH Stroke Scale - Level of Consciousness LOC: Alert - LOC Questions LOC Questions: Answers both correctly - LOC Commands LOC Commands: Performs both correctly - Best Gaze Best Gaze: Normal - Visual Visual: No visual loss - Facial Palsy Facial Palsy: Normal - Motor Arms Motor Arm-Left: No drift for 10 seconds Motor Arm-Right: No drift for 10 seconds - Motor Legs Motor Leg-Left: No drift for 5 seconds Motor Leg-Right: No drift for 5 seconds - Limb Ataxia Limb Ataxia: Normal, No Ataxia - Sensory Sensory: Normal - Best Language Best Language: No aphasia - Dysarthria Dysarthria: Normal - Extinction and Inattention Extinction and Inattention: Normal - NIHSS Total Score NIHSS Total Score: 0
[2017-05-24 19:26] LABS: Bilirubin,Urine Moderate (Negative); Blood,Urine Negative (Negative); Clarity,Urine Turbid (Clear); Color,Urine Dark Yellow (Yellow); Glucose,Urine (UA) Normal (Normal); Ketones,Urine 15 mg/dL (Negative); Leukocyte Esterase,Urine Negative (Negative); Nitrite,Urine Negative (Negative); Protein,Urine 100 mg/dL (Neg-Trace); Specific Gravity,Urine > 1.030 (1.010-1.025); Urobilinogen,Urine Normal (Normal)
[2017-05-24 19:31] LABS: Bacteria,Urine Few per hpf (None-Few); Squamous Epithelial Cell,Urine Many per lpf (None-Few); WBC,Urine 15-30 per hpf (0-3)
[2017-05-24 20:05] LABS: Hyaline Casts,Urine Few per lpf (None-Few); Mucus,Urine Many (Few); Renal Epithelial Cells,Urine Few per hpf (None-Few)
[2017-05-24 20:06] LABS: Oval Fat Bodies,Urine Present (Not Present)
[2017-05-24 20:09] LABS: Other Crystals,Urine Present
[2017-05-24 20:20] LABS: Basophils # 0.1 K/mcL (0.0-0.2); Basophils % 0.4 %; Eosinophils % 0.1 %; Hemoglobin 18.7 g/dL (11.5-15.4); Immature Granulocytes % 0.3 % (0-4); Lymphocytes # 1.1 K/mcL (0.6-4.6); Lymphocytes % 6.9 %; Mean Corpuscular HGB Conc 32.2 g/dL (31.6-35.5); Mean Corpuscular Volume 90.1 fL (83.0-100.0); Mean Platelet Volume 11.2 fL (9.4-12.4); Monocytes # 0.9 K/mcL (0.0-1.3); Monocytes % 5.7 %; Neutrophils # 13.9 K/mcL (1.6-8.9); Platelet Count 447 K/mcL (140-400); Red Blood Count 6.44 M/mcL (3.82-4.97); Red Cell Distribution Width 17.5 % (11.5-14.5); Segmented Neutrophils % 86.6 %
[2017-05-24 20:34] LABS: Albumin 3.5 g/dL (3.5-5.0); Albumin/Globulin Ratio 0.7 (1.1-2.2); Bilirubin,Total 1.2 mg/dL (0.2-1.2); Calcium 10.4 mg/dL (8.6-10.8); Globulin 5.2 g/dL (2.4-3.5); Potassium 3.4 mEq/L (3.5-4.5); Total Protein 8.7 g/dL (6.0-8.3)
[2017-05-24] MEDS ORDERED: cefTRIAXone 1,000 MG in Water for inj. (sterile) 10 ML IVP ONE (20:38)
[2017-05-24] MEDS: 0.9 % Sodium Chloride 1,000 ML IVC SCH (21:26)
[2017-05-24] MEDS ORDERED: Acetaminophen 325 MG TABLET PO PRN (21:59)
[2017-05-24] MEDS ORDERED: Naloxone 0.4 MG/ML INJ IVP PRN (22:00)
[2017-05-24] MEDS ORDERED: D5% in Water 1,000 ML IVC PRN (22:02)
[2017-05-24] MEDS ORDERED: *HR* Dextrose 50 % in Water (Syg) 50 ML SYRINGE IVP PRN (22:02)
[2017-05-24] MEDS ORDERED: Dextrose Gel 15 GM PO PRN ×2 (22:02)
--- NOTE | 2017-05-24 22:10 | Internal Med History&Physical ---
Date of Encounter: 05/24/17 Time of Encounter: 22:06 Assessment and Plan (1) Acute kidney injury Current visit: Yes Status: Acute IVF Likely pre-renal (2) UTI (urinary tract infection) Current visit: Yes Status: Acute symptomatic urine cx IV rocephin Qualifiers: Urinary tract infection type: acute cystitis Hematuria presence: without hematuria Qualified Code(s): N30.00 - Acute cystitis without hematuria (3) Chest pain Current visit: No Status: Acute trend trop further testing pending troponin, resolution of acute issues and clinical course Qualifiers: Chest pain type: precordial pain Qualified Code(s): R07.2 - Precordial pain (4) Diabetes Current visit: No Status: Chronic check A1c. ISS for now Qualifiers: Diabetes mellitus type: type 2 Diabetes mellitus complication status: with kidney complications Diabetes mellitus complication detail: with chronic kidney disease Diabetes mellitus joint terminal attack controller insulin use: without joint terminal attack controller use Chronic kidney disease stage: stage 3 (moderate) Qualified Code(s): E11.22 - Type 2 diabetes mellitus with diabetic chronic kidney disease; N18.3 - Chronic kidney disease, stage 3 (moderate); N18.3 - Chronic kidney disease, stage 3 (moderate) (5) Hypothyroid Current visit: Yes Status: Acute check tSH, FT4 Qualifiers: Hypothyroidism type: acquired Qualified Code(s): E03.9 - Hypothyroidism, unspecified Internal Medicine - H&P: HPI Chief complaint: CP History of present illness: Ms. Bass is a 61 year old female who presents with CP. She is homeless and has been living on a couch in someone's home who has been kind enough to host her. She has been homeless since she loss her job and benefits. She tells me that the reason for her admission was CP . CP started at around 730 -8 pm this evening with sternal in location, no location, 11/14, described as tightness. Resolved on admission She has DMII but does not take meds and has limited medical compliance due to her situation. She does not remember the medications she is taking In the ED, she was found to have pyuria but denies burning. Notes of chronic frequency. Denies fever/chills. She was found to have an GARRY suggesting decreased fluid intake. EKG reviewed personally with rate 109, NSR Past Med Surg Social Fam HX - Past Medical History Medical history: diabetes, hyperlipidemia, hypertension, renal disease, thyroid disease, other Psychiatric history: depression - Past Surgical History Surgical History: knee replacement, other - Social History Smoking Status: Former smoker Smokeless Tobacco Status: No Alcohol use: none Drug use: none - Family History Mother Adopted: No Family Member Ethnicity: Non- Living Status: Hx Family Cardiac Disorders: No Hx Family Respiratory Disorders: No Hx Family Cancer: Yes Hx Family GI Disorders: No Hx Family Endocrine Disorder: No Hx Family Neuromuscular Disorders: No Hx Family Neurologic Disorders: No Hx Family HEENT Disorders: No Hx Family Autoimmune Disorders: No Father Adopted: No Family Member Ethnicity: Non- Living Status: Hx Family Cardiac Disorders: Yes Hx Family Respiratory Disorders: No Hx Family Cancer: Yes Hx Family GI Disorders: No Hx Family Endocrine Disorder: No Hx Family Neuromuscular Disorders: No Hx Family Neurologic Disorders: No Hx Family HEENT Disorders: No Hx Family Autoimmune Disorders: No Internal Medicine - H&P: Meds Cyclobenzaprine [Flexeril] 10 mg PO HS 10/07/16 [History] Gabapentin [Neurontin] 300 mg PO TID 10/07/16 [History] Hydrochlorothiazide [Microzide] 12.5 mg PO DAILY 10/07/16 [History] Lovastatin 40 mg PO DAILY 10/07/16 [History] Mv-Mn/FA/Vit K/Lycop/Lut/Coq10 [Daily Multivitamin Capsule] 1 each PO DAILY 08/21 [History] Paricalcitol [Zemplar] 1 mcg PO DAILY 10/07/16 [History] Potassium Chloride [K-Tab ER] 20 meq PO DAILY 10/07/16 [History] Acetaminophen [Tylenol] 650 mg PO Q6H PRN #0 tablet 10/24/16 [Rx] Lactobacillus [Culturelle] 1 each PO BID cap.sprink 10/24/16 [Rx] Sertraline [Zoloft] 25 mg PO DAILY tablet 10/24/16 [Rx] Amino Acids/Protein Hydrolys [Pro-Stat Awc Liquid Packet] 30 ml PO BID 03/18/17 [History] HydrOXYzine 10 mg PO TID PRN 03/18/17 [History] Levothyroxine [Synthroid] 150 mcg PO QAM 03/18/17 [History] Oxycodone HCl [Oxaydo] 5 mg PO TID 03/18/17 [History] Fluticasone Propionate Nasal [Flonase] 50 mcg NS DAILY bottle 03/22/17 [Rx] Loratadine [Claritin] 10 mg PO DAILY tablet 03/22/17 [Rx] Metoprolol [Lopressor] 12.5 mg PO BID #0 tablet 03/22/17 [Rx] OxyCODONE Immed Rel [Roxicodone 5 MG] 5 mg PO Q4HR PRN #10 tablet 03/22/17 [Rx] Sertraline [Zoloft] 50 mg PO DAILY #30 tablet 03/24/17 [Rx] 3 Allergy/AdvReac Type Severity Reaction Status Date / Time No Known Allergies Allergy Verified 10/11/16 22:04 All Systems PM: A 10-system review of systems was performed and is negative for pertinent findings except as documented above in the HPI. Review of systems: ROS 14 point review of systems reviewed as best as possible given presentation. Pertinent positive or negative as per HPI or otherwise reviewed as negative - Constitutional Vitals: Temp Pulse Resp BP Pulse Ox 97.5 F L 91 16 100/60 95 05/24/17 19:15 05/24/17 21:27 05/24/17 21:27 05/24/17 21:27 05/24/17 21:27 Exam: General - AAO x 3 Psych - Appropriate affect/speech. No agitation Eyes - ELIANE. Eye lids intact. No scleral icterus Neuro - No gross peripheral or central neuro deficits with intact CN 2-12 exam Heart - Sinus. RRR. S1 and S2 present. No added HS/murmurs appreciated. No elevated JVD appreciated. Lung - Adequate air entry b/l, No crackles/wheezes appreciated GI - Soft, non-tender. No hepatosplenomegaly/ascites. BS+ - No CVA/suprapubic tenderness or palpable bladder distension Internal Med - H&P Results - Labs CBC & Chem 7: 05/24/17 20:09 05/24/17 20:09
[2017-05-25] MEDS: 0.9 % Sodium Chloride 1,000 ML IVC SCH ×2 (05:19→16:42)
[2017-05-25] MEDS ORDERED: *HR* Heparin 5,000 UNIT/ML VIAL SQ SCH (06:00)
[2017-05-25 06:50] LABS: Basophils % 0.4 %; Eosinophils % 0.2 %; Hematocrit 48.3 % (35.3-44.9); Immature Granulocytes % 0.2 % (0-4); Lymphocytes # 1.3 K/mcL (0.6-4.6); Lymphocytes % 13.2 %; Mean Corpuscular HGB Conc 32.1 g/dL (31.6-35.5); Mean Corpuscular Hemoglobin 29.1 pg (28.0-33.3); Mean Corpuscular Volume 90.6 fL (83.0-100.0); Mean Platelet Volume 11.4 fL (9.4-12.4); Monocytes # 0.7 K/mcL (0.0-1.3); Monocytes % 6.7 %; Neutrophils # 7.7 K/mcL (1.6-8.9); Platelet Count 306 K/mcL (140-400); Red Blood Count 5.33 M/mcL (3.82-4.97); Red Cell Distribution Width 16.5 % (11.5-14.5); Segmented Neutrophils % 79.3 %
[2017-05-25 06:53] LABS: Hemoglobin A1C 5.5 %
[2017-05-25 06:54] LABS: Hemoglobin 15.5 g/dL (11.5-15.4)
[2017-05-25 06:55] LABS: Calcium 9.2 mg/dL (8.6-10.8); Magnesium 1.6 mg/dL (1.6-2.6); Potassium 3.5 mEq/L (3.5-4.5)
[2017-05-25 07:19] LABS: Thyroid Stimulating Hormone 38.845 mcIU/mL (0.350-4.840)
--- NOTE | 2017-05-25 07:39 | Internal Med Progress Note ---
<Rodger Christianson - Last Filed: 05/25/17 09:41> Date of Encounter: 05/25/17 Time of Encounter: 07:39 - Assessment and plan (1) Chest pain Current Visit: No Status: Acute Assessment and plan: Chest pain free since admission Trop 0.03, 0.04, 0.04 No EKG changes Continue cardiac monitoring Consider further outpatient workup after discharge Qualifiers: Chest pain type: precordial pain Qualified Code(s): R07.2 - Precordial pain (2) UTI (urinary tract infection) Current Visit: Yes Status: Acute Assessment and plan: Denies any dysuria this morning Continue Rocephin WBC trending down 16 -> 9.7 Cr improving 1.62 -> 1.22 Qualifiers: Urinary tract infection type: acute cystitis Hematuria presence: without hematuria Qualified Code(s): N30.00 - Acute cystitis without hematuria (3) Hypothyroidism Current Visit: Yes Status: Chronic Assessment and plan: Patient is compliant with her synthroid 150 qd TSH 38.8 and Free t4 0.64 Increasing to 175 today Qualifiers: Hypothyroidism type: acquired Qualified Code(s): E03.9 - Hypothyroidism, unspecified (4) Depression Current Visit: No Status: Acute Assessment and plan: Stable at this time Continue Zoloft Qualifiers: Depression Type: unspecified Qualified Code(s): F32.9 - Major depressive disorder, single episode, unspecified - Subjective Interval history: Patient is resting comfortably in bed this morning. She has no new complaints and no events overnights. Denies any CP, SOB, palpitations, n/v, LANGFORD, fevers or LE edema. - Constitutional Vitals: Temp Pulse Resp BP Pulse Ox 98.1 F 78 18 124/70 97 05/25/17 06:52 05/25/17 06:52 05/25/17 06:52 05/25/17 06:52 05/25/17 06:52 General appearance: Present: cooperative, A&O X 3, no acute distress, answers questions appropriately - Head Head exam: Present: atraumatic, normocephalic - Eye Eye exam: Present: EOMI, normal appearance - Neck Neck exam general surgery: Present: supple, trachea midline - Respiratory Respiratory exam: Present: CTAB. Absent: rhonchi, wheezes - Cardiovascular Cardiovascular exam: Present: RRR, +S1, +S2 - GI/Abdominal GI/Abdominal exam: Present: normal bowel sounds, soft. Absent: distended, guarding, tenderness - Extremities Exam Extremities exam: Present: warm. Absent: calf tenderness, pedal edema, tenderness - Neurological Exam Neurological exam: Present: alert, oriented X3, no focal deficits - Psychiatric Psychiatric exam: Present: normal affect, normal mood - Skin Skin exam: Present: dry, normal color, warm. Absent: diaphoretic Internal Medicine: Result - Labs CBC & Chem 7: 05/25/17 06:33 05/25/17 06:33 Labs: Short CBC 05/25/17 Range/Units 06:33 WBC 9.7 (4.3-11.1) K/mcL Hgb 15.5 H D (11.5-15.4) g/dL Hct 48.3 H (35.3-44.9) % Plt Count 306 (140-400) K/mcL Neutrophils # 7.7 (1.6-8.9) K/mcL BMP 05/25/17 06:33 Sodium 141 Potassium 3.5 Chloride 107 Carbon Dioxide 24 BUN 30 H Creatinine 1.22 H Glucose 112 H Calcium 9.2 Cardiac Enzymes 05/24/17 05/25/17 Range/Units 23:02 06:33 Troponin I 0.04 H* 0.04 H* (0-0.03) ng/mL Consult Discharge Plan - Plan Referrals: Marielos Awad MD [Primary Care Provider] - <ChrisamandaShahbaz - Last Filed: 05/25/17 15:43> Date of Encounter: 05/25/17 - Constitutional Vitals: Temp Pulse Resp BP Pulse Ox 98.2 F 73 18 127/83 94 05/25/17 14:22 05/25/17 14:22 05/25/17 14:22 05/25/17 14:22 05/25/17 14:22 Internal Medicine: Result - Labs CBC & Chem 7: 05/25/17 06:33 05/25/17 06:33 Labs: Short CBC 05/25/17 Range/Units 06:33 WBC 9.7 (4.3-11.1) K/mcL Hgb 15.5 H D (11.5-15.4) g/dL Hct 48.3 H (35.3-44.9) % Plt Count 306 (140-400) K/mcL Neutrophils # 7.7 (1.6-8.9) K/mcL BMP 05/25/17 06:33 Sodium 141 Potassium 3.5 Chloride 107 Carbon Dioxide 24 BUN 30 H Creatinine 1.22 H Glucose 112 H Calcium 9.2 Cardiac Enzymes 05/24/17 05/25/17 05/25/17 Range/Units 23:02 06:33 11:59 Troponin I 0.04 H* 0.04 H* 0.03 (0-0.03) ng/mL - Attending Attestation I conducted a face to face diagnostic evaluation of this patient and my medical decision-making was reviewed with the Resident Physician, Dr Rodger Christianson. I agree with the documented findings, disposition and treatment plan as described except to the extent set forth below: Patient appears unkempt in no acute distress awake alert oriented. Heart is regular. Lungs are clear. She has 2 linear superficial wounds on the upper back. No sign of infection or bleeding. Assessment: Patient admitted with chest pain, acute kidney injury UTI and hypothyroidism. Plan: ACS was ruled out. AK has improved with IV fluids. We will continue with Rocephin for UTI. Increase thyroxine. For skin wounds will consult wound care team. Consult PT OT and social work for placement. Shahbaz Mcbride MD
[2017-05-25] MEDS: Insulin LISPRO 300 UNITS/3 ML VIAL SQ SCH ×4 (08:23→21:11)
[2017-05-25] MEDS: cefTRIAXone 1,000 MG in Water for inj. (sterile) 10 ML IVPB SCH (08:59)
[2017-05-25] MEDS: Gabapentin 300 MG CAPSULE PO SCH ×3 (08:59→21:11)
[2017-05-26] MEDS: 0.9 % Sodium Chloride 1,000 ML IVC SCH ×4 (06:08→23:17)
[2017-05-26 06:33] LABS: Basophils % 0.4 %; Eosinophils # 0.2 K/mcL (0.0-0.6); Eosinophils % 2.9 %; Hematocrit 44.5 % (35.3-44.9); Hemoglobin 14.4 g/dL (11.5-15.4); Immature Granulocytes % 0.4 % (0-4); Lymphocytes # 1.6 K/mcL (0.6-4.6); Lymphocytes % 20.4 %; Mean Corpuscular HGB Conc 32.4 g/dL (31.6-35.5); Mean Corpuscular Hemoglobin 29.4 pg (28.0-33.3); Mean Corpuscular Volume 90.8 fL (83.0-100.0); Mean Platelet Volume 11.3 fL (9.4-12.4); Monocytes # 0.7 K/mcL (0.0-1.3); Monocytes % 9.3 %; Neutrophils # 5.2 K/mcL (1.6-8.9); Platelet Count 255 K/mcL (140-400); Red Cell Distribution Width 15.9 % (11.5-14.5); Segmented Neutrophils % 66.6 %
[2017-05-26 06:59] LABS: Calcium 8.4 mg/dL (8.6-10.3); Magnesium 1.6 mg/dL (1.6-2.6); Potassium 3.5 mEq/L (3.5-5.1)
[2017-05-26] MEDS: Insulin LISPRO 300 UNITS/3 ML VIAL SQ SCH ×4 (07:39→21:54)
[2017-05-26] MEDS: cefTRIAXone 1,000 MG in Water for inj. (sterile) 10 ML IVPB SCH (07:45)
--- NOTE | 2017-05-26 08:03 | Internal Med Progress Note ---
<Rodger Christianson - Last Filed: 05/26/17 11:44> Date of Encounter: 05/26/17 Time of Encounter: 08:00 - Assessment and plan (1) Chest pain Current Visit: No Status: Resolved Assessment and plan: Chest pain free since admission Trop 0.03, 0.04, 0.04, 0.03 No EKG changes Continue cardiac monitoring Consider further outpatient workup after discharge DC plan: Short term facility pending placement Qualifiers: Chest pain type: precordial pain Qualified Code(s): R07.2 - Precordial pain (2) UTI (urinary tract infection) Current Visit: Yes Status: Acute Assessment and plan: Denies any dysuria this morning Continue Rocephin - Day 2 IV therapy WBC trending down 16 -> 9.7 -> 7.8 Cr improving 1.62 -> 1.22 -> 1.19 Qualifiers: Urinary tract infection type: acute cystitis Hematuria presence: without hematuria Qualified Code(s): N30.00 - Acute cystitis without hematuria (3) Hypothyroidism Current Visit: Yes Status: Chronic Assessment and plan: TSH 38.8 and Free t4 0.64 Increased to 175 Qualifiers: Hypothyroidism type: acquired Qualified Code(s): E03.9 - Hypothyroidism, unspecified (4) Depression Current Visit: No Status: Chronic Assessment and plan: Stable at this time Continue Zoloft Qualifiers: Depression Type: unspecified Qualified Code(s): F32.9 - Major depressive disorder, single episode, unspecified (5) Diabetes Current Visit: No Status: Chronic Assessment and plan: A1C 5.5 SS for coverage Qualifiers: Diabetes mellitus type: type 2 Diabetes mellitus complication status: with kidney complications Diabetes mellitus complication detail: with chronic kidney disease Diabetes mellitus dedicated intermodal truck driver insulin use: without dedicated intermodal truck driver use Chronic kidney disease stage: stage 3 (moderate) Qualified Code(s): E11.22 - Type 2 diabetes mellitus with diabetic chronic kidney disease; N18.3 - Chronic kidney disease, stage 3 (moderate); N18.3 - Chronic kidney disease, stage 3 (moderate) (6) Wound of right side of back Current Visit: Yes Status: Chronic Assessment and plan: Appears to be healing, no drainage Wound care consulted Appreciate recommendations Qualifiers: Encounter type: initial encounter Qualified Code(s): S21.201A - Unspecified open wound of right back wall of thorax without penetration into thoracic cavity, initial encounter - Subjective Interval history: Patient is resting comfortably in bed this morning. She has no new complaints and no events overnights. Denies any CP, SOB, palpitations, n/v, LANGFORD, fevers or LE edema. She is agreeable to short term rehab facility. - Constitutional Vitals: Temp Pulse Resp BP Pulse Ox 97.7 F 63 17 135/82 98 05/26/17 05:33 05/26/17 05:33 05/26/17 05:33 05/26/17 05:33 05/26/17 05:33 General appearance: Present: cooperative, A&O X 3, no acute distress (sitting up in chair eating breakfast), answers questions appropriately - Head Head exam: Present: atraumatic, normocephalic - Eye Eye exam: Present: EOMI, normal appearance - ENT ENT exam: Present: mucous membranes moist - Neck Neck exam general surgery: Present: supple, trachea midline - Respiratory Respiratory exam: Present: CTAB. Absent: respiratory distress - Cardiovascular Cardiovascular exam: Present: RRR, +S1, +S2 - GI/Abdominal GI/Abdominal exam: Present: normal bowel sounds, soft. Absent: tenderness - Extremities Exam Extremities exam: Present: warm. Absent: calf tenderness, pedal edema, tenderness - Back Exam Additional comments: large healing laceration about mid thoracic region - Neurological Exam Neurological exam: Present: alert, oriented X3, no focal deficits - Psychiatric Psychiatric exam: Present: normal affect, normal mood - Skin Skin exam: Present: dry, warm Internal Medicine: Result - Labs CBC & Chem 7: 05/26/17 06:22 05/26/17 06:22 Labs: Short CBC 05/26/17 Range/Units 06:22 WBC 7.8 (4.3-11.1) K/mcL Hgb 14.4 (11.5-15.4) g/dL Hct 44.5 (35.3-44.9) % Plt Count 255 (140-400) K/mcL Neutrophils # 5.2 (1.6-8.9) K/mcL BMP 05/26/17 06:22 Sodium 138 Potassium 3.5 Chloride 109 H Carbon Dioxide 25 BUN 24 H Creatinine 1.19 Glucose 111 H Calcium 8.4 L Cardiac Enzymes 05/25/17 Range/Units 11:59 Troponin I 0.03 (< 0.04) ng/mL Consult Discharge Plan - Plan Instructions: Chest Pain (DC), Urinary Tract Infection in Women (DC) Referrals: Marielos Awad MD [Primary Care Provider] - Prescriptions: Ciprofloxacin [Cipro] 500 mg PO BID #10 tablet <Shahbaz Mcbride - Last Filed: 05/26/17 17:59> Date of Encounter: 05/26/17 - Constitutional Vitals: Temp Pulse Resp BP Pulse Ox 97.7 F 73 16 127/73 95 05/26/17 14:57 05/26/17 14:57 05/26/17 14:57 05/26/17 14:57 05/26/17 14:57 Internal Medicine: Result - Labs CBC & Chem 7: 05/26/17 06:22 05/26/17 06:22 Labs: Short CBC 05/26/17 Range/Units 06:22 WBC 7.8 (4.3-11.1) K/mcL Hgb 14.4 (11.5-15.4) g/dL Hct 44.5 (35.3-44.9) % Plt Count 255 (140-400) K/mcL Neutrophils # 5.2 (1.6-8.9) K/mcL BMP 05/26/17 06:22 Sodium 138 Potassium 3.5 Chloride 109 H Carbon Dioxide 25 BUN 24 H Creatinine 1.19 Glucose 111 H Calcium 8.4 L - Attending Attestation I conducted a face to face diagnostic evaluation of this patient and my medical decision-making was reviewed with the Resident Physician, Dr Rodger Christianson. I agree with the documented findings, disposition and treatment plan as described except to the extent set forth below: Patient is in no acute discomfort distress awake alert oriented. Heart is regular and lungs are clear. Plan: Continue antibiotics for UTI. Follow-up urine culture. Encourage oral hydration. Discontinue IV fluids. Shahbaz Mcbride MD
[2017-05-26] MEDS: Gabapentin 300 MG CAPSULE PO SCH ×3 (08:55→21:54)
--- NOTE | 2017-05-26 10:41 | Physician Discharge Referral ---
ExtendedCare Referral Info Transfer To: short term rehab facility Provider in Charge after Transfer: PCP Institutional Level of Care: Intermediate - Diagnosis (1) Chest pain Priority: Primary Status: Resolved (2) UTI (urinary tract infection) Priority: Primary Status: Acute (3) Hypothyroidism Priority: Secondary Status: Chronic (4) Depression Priority: Secondary Status: Chronic (5) Diabetes Priority: Secondary Status: Chronic (6) Wound of right side of back Priority: Secondary Status: Chronic Prognosis: Good Aware of Diagnosis: Patient Aware of Prognosis: Patient - Transfer Medications Prescriptions: Ciprofloxacin [Cipro] 500 mg PO BID #10 tablet Home Medications: Cyclobenzaprine [Flexeril] 10 mg PO HS 10/07/16 [History] Gabapentin [Neurontin] 300 mg PO TID 10/07/16 [History] Hydrochlorothiazide [Microzide] 12.5 mg PO DAILY 10/07/16 [History] Lovastatin 40 mg PO DAILY 10/07/16 [History] Mv-Mn/FA/Vit K/Lycop/Lut/Coq10 [Daily Multivitamin Capsule] 1 each PO DAILY 08/21 [History] Paricalcitol [Zemplar] 1 mcg PO DAILY 10/07/16 [History] Potassium Chloride [K-Tab ER] 20 meq PO DAILY 10/07/16 [History] Acetaminophen [Tylenol] 650 mg PO Q6H PRN #0 tablet 10/24/16 [Rx] Lactobacillus [Culturelle] 1 each PO BID cap.sprink 10/24/16 [Rx] Sertraline [Zoloft] 25 mg PO DAILY tablet 10/24/16 [Rx] Amino Acids/Protein Hydrolys [Pro-Stat Awc Liquid Packet] 30 ml PO BID 03/18/17 [History] HydrOXYzine 10 mg PO TID PRN 03/18/17 [History] Levothyroxine [Synthroid] 150 mcg PO QAM 03/18/17 [History] Oxycodone HCl [Oxaydo] 5 mg PO TID 03/18/17 [History] Fluticasone Propionate Nasal [Flonase] 50 mcg NS DAILY bottle 03/22/17 [Rx] Loratadine [Claritin] 10 mg PO DAILY tablet 03/22/17 [Rx] Metoprolol [Lopressor] 12.5 mg PO BID #0 tablet 10/16/17 [Rx] OxyCODONE Immed Rel [Roxicodone 5 MG] 5 mg PO Q4HR PRN #10 tablet 03/22/17 [Rx] Sertraline [Zoloft] 50 mg PO DAILY #30 tablet 03/24/17 [Rx] Ciprofloxacin [Cipro] 500 mg PO BID #10 tablet 05/26/17 [Rx] Allergies/Adverse Reactions: 3 Allergy/AdvReac Type Severity Reaction Status Date / Time No Known Allergies Allergy Verified 10/11/16 22:04 - Respiratory Orders None Smoking Cessation: Smoking cessation has been advised. For more information, call the [place] Tobacco Quit Line at 1-072-HFTE-NOW. - Advance Directives Code Status: Full Code - Mobility Orders Ambulate - Rehabiliation Orders Rehab Potential: Good Rehab Orders: Evaluation for Physical Therapy, Evaluation for Occupational Therapy Other: Homeless and requiring further services - Treatments Skin tear care topically daily PRN per policy (to wound on back) - Diet Orders Regular CERTIFICATION: I certify that the transfer of the above named patient to an Extended Care Facility is necessary for the continuing treatment of the diagnosis listed. The above information is true and accurate reflection of patient's current condition. Confidential - Redisclosure prohibited without a patient's written consent.
--- NOTE | 2017-05-26 10:46 | Discharge Summary ---
<Rodger Christianson - Last Filed: 05/26/17 11:46> Date of Encounter: 05/26/17 Time of Encounter: 10:44 - Discharge Diagnosis (1) Chest pain Priority: Primary Status: Resolved Comments: Resolved No intervention during hospital stay No EKG changes Trop trended and normalized Qualifiers: Chest pain type: precordial pain Qualified Code(s): R07.2 - Precordial pain (2) UTI (urinary tract infection) Priority: Primary Status: Acute Comments: Resolving Discontinued Rocephin Transitioned to Cipro for 5 days Qualifiers: Urinary tract infection type: acute cystitis Hematuria presence: without hematuria Qualified Code(s): N30.00 - Acute cystitis without hematuria (3) Hypothyroidism Priority: Secondary Status: Chronic Comments: Increased synthroid to 175mg qd Will need to recheck TSH and free T4 as outpatient Qualifiers: Hypothyroidism type: acquired Qualified Code(s): E03.9 - Hypothyroidism, unspecified (4) Depression Priority: Secondary Status: Chronic Comments: Zoloft Qualifiers: Depression Type: unspecified Qualified Code(s): F32.9 - Major depressive disorder, single episode, unspecified (5) Diabetes Priority: Secondary Status: Chronic Comments: Low dose sliding scale insulin A1C 5.5 Qualifiers: Diabetes mellitus type: type 2 Diabetes mellitus complication status: with kidney complications Diabetes mellitus complication detail: with chronic kidney disease 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 use: without petroleum terminal plant operator use Chronic kidney disease stage: stage 3 (moderate) Qualified Code(s): E11.22 - Type 2 diabetes mellitus with diabetic chronic kidney disease; N18.3 - Chronic kidney disease, stage 3 (moderate); N18.3 - Chronic kidney disease, stage 3 (moderate) (6) Wound of right side of back Priority: Secondary Status: Chronic Comments: daily wound care Qualifiers: Encounter type: initial encounter Qualified Code(s): S21.201A - Unspecified open wound of right back wall of thorax without penetration into thoracic cavity, initial encounter - Discharge Medications Prescriptions: Ciprofloxacin [Cipro] 500 mg PO BID #10 tablet Home Medications: Cyclobenzaprine [Flexeril] 10 mg PO HS 10/07/16 [History] Gabapentin [Neurontin] 300 mg PO TID 10/07/16 [History] Hydrochlorothiazide [Microzide] 12.5 mg PO DAILY 10/07/16 [History] Mv-Mn/FA/Vit K/Lycop/Lut/Coq10 [Daily Multivitamin Capsule] 1 each PO DAILY 08/21 [History] Paricalcitol [Zemplar] 1 mcg PO DAILY 10/07/16 [History] Potassium Chloride [K-Tab ER] 20 meq PO DAILY 10/07/16 [History] Acetaminophen [Tylenol] 650 mg PO Q6H PRN #0 tablet 10/24/16 [Rx] Lactobacillus [Culturelle] 1 each PO BID cap.sprink 10/24/16 [Rx] Amino Acids/Protein Hydrolys [Pro-Stat Awc Liquid Packet] 30 ml PO BID 03/18/17 [History] HydrOXYzine 10 mg PO TID PRN 03/18/17 [History] Oxycodone HCl [Oxaydo] 5 mg PO TID 03/18/17 [History] Fluticasone Propionate Nasal [Flonase] 50 mcg NS DAILY bottle 03/22/17 [Rx] Loratadine [Claritin] 10 mg PO DAILY tablet 03/22/17 [Rx] Metoprolol [Lopressor] 12.5 mg PO BID #0 tablet 03/22/17 [Rx] OxyCODONE Immed Rel [Roxicodone 5 MG] 5 mg PO Q4HR PRN #10 tablet 03/22/17 [Rx] Sertraline [Zoloft] 50 mg PO DAILY #30 tablet 03/24/17 [Rx] Ciprofloxacin [Cipro] 500 mg PO BID #10 tablet 05/26/17 [Rx] Insulin LISPRO [HumaLOG] 0 units SQ HS vial 05/26/17 [Rx] Insulin LISPRO [HumaLOG] 0 units SQ TIDAC vial 05/26/17 [Rx] Levothyroxine [Synthroid] 175 mcg PO 0630 tablet 05/26/17 [Rx] Simvastatin [Zocor] 20 mg PO HS tablet 05/26/17 [Rx] Allergies/Adverse Reactions: 3 Allergy/AdvReac Type Severity Reaction Status Date / Time No Known Allergies Allergy Verified 10/11/16 22:04 Date of admission: 05/24/17 21:27 Primary care physician: Marielos Awad Consults: 05/24/17 22:02 Consult to Brasswind Instrument Repairer [CONS] Routine Reason for SW Consult: homless 05/25/17 15:39 PT [Consult to Physical Therapy] [CONS] Routine Comment: Evaluate, develop and implement POC Reason for Consult: Weakness 05/25/17 15:40 Consult to Wound Care [CONS] Routine Reason for Consult: Wounds Call Completed: No OT [Consult to Occupational Therapy] [CONS] Routine Comment: Evaluate, develop and implement POC Reason for Consult: Weakness Discharging clinician: Shahbaz Mcbride Anticipated date of discharge: 05/26/17 - Patient Status Disposition: Transfer Inpatient Rehab Fac Condition: Fair Overall status at discharge: patient is back to baseline - Discharge Instructions Instructions: Chest Pain (DC), Urinary Tract Infection in Women (DC) Follow Up With: Marielos Awad MD [Primary Care Provider] - - Diet and Activity Activity: resume usual activities as tolerated Diet: advance to your usual diet Interval History: Ms. Bass is a very pleasant 61 year old female with a past medical history of DM, hypothyroidism and CKD who presented to the [facility] ED on 05/24/18 with a chief complaint of precordial chest pain. Her chest resolved in the ED but was admitted for further workup. Troponin was mildly elevated and trended. No ischemic changes were seen on EKG. Patient is currently homeless and has minimal compliance with her medications. Admission workup showed TSH 38, rosemarie t 0.64, WBC 16, Cr 1.62 and urine + nitrate, LE and WBCs. She was started on IVF , IV rocephin and increased her synthroid to 175. Low dose sliding scale for DM coverage. Patient responded well to treatment. WBC and Cr normalized to 7.8 an 1.19 respectively. Transitioned off Rocephin to PO cipro. Ms. Bass was discharged in stable condition to short term rehabilaition facility on . All questions and concerns were answered. Hospital course: Ms. Bass is a 61 year old female - Time Spent with Patient Total time spent providing and/or coordinating discharge services: - Constitutional Vitals: Temp Pulse Resp BP Pulse Ox 97.7 F 63 17 135/82 93 05/26/17 05:33 05/26/17 05:33 05/26/17 05:33 05/26/17 05:33 05/26/17 08:58 General appearance: Present: cooperative, A&O X 3, no acute distress (sitting up in chair eating breakfast), answers questions appropriately - Head Head exam: Present: atraumatic, normocephalic - Eye Eye exam: Present: EOMI, normal appearance - ENT ENT exam: Present: mucous membranes moist - Neck Neck exam general surgery: Present: supple, trachea midline - Respiratory Respiratory exam: Present: CTAB. Absent: respiratory distress - Cardiovascular Cardiovascular exam: Present: RRR, +S1, +S2 - GI/Abdominal GI/Abdominal exam: Present: normal bowel sounds, soft. Absent: tenderness - Extremities Exam Extremities exam: Present: normal inspection, warm. Absent: calf tenderness, tenderness - Neurological Exam Neurological exam: Present: alert, oriented X3, no focal deficits - Psychiatric Psychiatric exam: Present: normal affect, normal mood - Skin Additional comments: Large linear healing wond without drainage about mid back on the right <Shahbaz Mcbride - Last Filed: 05/26/17 18:03> Date of Encounter: 05/26/17 Date of admission: 05/24/17 21:27 Primary care physician: Marielos Awad Consults: 05/24/17 22:02 Consult to Brasswind Instrument Repairer [CONS] Routine Reason for SW Consult: homless 05/25/17 15:39 PT [Consult to Physical Therapy] [CONS] Routine Comment: Evaluate, develop and implement POC Reason for Consult: Weakness 05/25/17 15:40 Consult to Wound Care [CONS] Routine Reason for Consult: Wounds Call Completed: No OT [Consult to Occupational Therapy] [CONS] Routine Comment: Evaluate, develop and implement POC Reason for Consult: Weakness Hospital course: Ms. Bass is a 61 year old female - Time Spent with Patient Total time spent providing and/or coordinating discharge services: - Constitutional Vitals: Temp Pulse Resp BP Pulse Ox 97.7 F 73 16 127/73 95 05/26/17 14:57 05/26/17 14:57 05/26/17 14:57 05/26/17 14:57 05/26/17 14:57 - Attending Attestation I conducted a face to face diagnostic evaluation of this patient and my medical decision-making was reviewed with the Resident Physician, Dr Rodger Christianson. I agree with the documented findings, disposition and treatment plan as described except to the extent set forth below: Patient is no acute distress awake alert oriented. Heart is regular lungs are clear. Patient will be discharged to subacute rehabilitation and will be prescribed oral antibiotic therapy. Shahbaz Mcbride MD
--- NOTE | 2017-05-26 11:44 | Electrocardiograph Report ---
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
[2017-05-27 06:06] LABS: Basophils # 0.1 K/mcL (0.0-0.2); Basophils % 1.1 %; Eosinophils # 0.3 K/mcL (0.0-0.6); Eosinophils % 4.1 %; Hematocrit 42.2 % (35.3-44.9); Hemoglobin 13.8 g/dL (11.5-15.4); Immature Granulocytes % 0.3 % (0-4); Lymphocytes # 1.6 K/mcL (0.6-4.6); Lymphocytes % 24.7 %; Mean Corpuscular HGB Conc 32.7 g/dL (31.6-35.5); Mean Corpuscular Hemoglobin 29.5 pg (28.0-33.3); Mean Corpuscular Volume 90.2 fL (83.0-100.0); Mean Platelet Volume 11.6 fL (9.4-12.4); Monocytes # 0.6 K/mcL (0.0-1.3); Monocytes % 9.2 %; Platelet Count 227 K/mcL (140-400); Red Blood Count 4.68 M/mcL (3.82-4.97); Red Cell Distribution Width 15.7 % (11.5-14.5); Segmented Neutrophils % 60.6 %
[2017-05-27 06:20] LABS: BUN/Creatinine Ratio 16 (6-26); Blood Urea Nitrogen 15 mg/dL (8-23); Calcium 8.1 mg/dL (8.6-10.3); Carbon Dioxide 26 mEq/L (23-29); Chloride 110 mEq/L (98-107); Glucose 103 mg/dL (70-105); Magnesium 1.6 mg/dL (1.6-2.6); Osmolality,Calculated 299 (280-300); Potassium 3.3 mEq/L (3.5-5.1); Sodium 144 mEq/L (136-145); eGFR For African Americans > 60 (> 60); eGFR For Non-African Americans 59 (> 60)
[2017-05-27] MEDS: 0.9 % Sodium Chloride 1,000 ML IVC SCH (07:28)
--- NOTE | 2017-05-27 08:34 | Internal Med Progress Note ---
<Rodger Christianson - Last Filed: 05/27/17 13:13> Date of Encounter: 05/27/17 Time of Encounter: 08:34 - Assessment and plan (1) UTI (urinary tract infection) Current Visit: Yes Status: Acute Assessment and plan: Denies any dysuria this morning Discontinued Rocephin, started Cipro PO WBC trending down 16 -> 9.7 -> 7.8 > 6.6 Cr improving 1.62 -> 1.22 -> 1.19 -> 0.96 Urine culture pending Qualifiers: Urinary tract infection type: acute cystitis Hematuria presence: without hematuria Qualified Code(s): N30.00 - Acute cystitis without hematuria (2) Hypothyroidism Current Visit: Yes Status: Chronic Assessment and plan: TSH 38.8 and Free t4 0.64 Increased to 175 Qualifiers: Hypothyroidism type: acquired Qualified Code(s): E03.9 - Hypothyroidism, unspecified (3) Depression Current Visit: No Status: Chronic Assessment and plan: Appears to be stable at this time Continue Zoloft Awaiting [facility] Evaluation for d/c approval to rehab facility Qualifiers: Depression Type: unspecified Qualified Code(s): F32.9 - Major depressive disorder, single episode, unspecified (4) Diabetes Current Visit: No Status: Chronic Assessment and plan: A1C 5.5 SS for coverage Qualifiers: Diabetes mellitus type: type 2 Diabetes mellitus complication status: with kidney complications Diabetes mellitus complication detail: with chronic kidney disease 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 insulin use: without mcfp use Chronic kidney disease stage: stage 3 (moderate) Qualified Code(s): E11.22 - Type 2 diabetes mellitus with diabetic chronic kidney disease; N18.3 - Chronic kidney disease, stage 3 (moderate); N18.3 - Chronic kidney disease, stage 3 (moderate) (5) Wound of right side of back Current Visit: Yes Status: Chronic Assessment and plan: Appears to be healing, no drainage Wound care consulted Appreciate recommendations Qualifiers: Encounter type: initial encounter Qualified Code(s): S21.201A - Unspecified open wound of right back wall of thorax without penetration into thoracic cavity, initial encounter (6) Chest pain Current Visit: No Status: Resolved Assessment and plan: Resolved Trop neg x3 No EKG changes Consider further outpatient workup after discharge Qualifiers: Chest pain type: precordial pain Qualified Code(s): R07.2 - Precordial pain - Subjective Interval history: Patient is resting comfortably in bed this morning. She has no new complaints and no events overnights. Denies any CP, SOB, palpitations, n/v, [place], fevers or LE edema. She is agreeable to short term rehab facility and awaiting evaluation from [facility] for discharge - Constitutional Vitals: Temp Pulse Resp BP Pulse Ox 97.5 F L 54 18 135/78 98 05/27/17 08:21 05/27/17 08:21 05/27/17 08:21 05/27/17 08:21 05/27/17 08:21 General appearance: Present: cooperative, A&O X 3, no acute distress (sitting up in chair eating breakfast), answers questions appropriately - Head Head exam: Present: atraumatic, normocephalic - Eye Eye exam: Present: EOMI, normal appearance - ENT ENT exam: Present: mucous membranes moist - Neck Neck exam general surgery: Present: supple, trachea midline - Respiratory Respiratory exam: Present: CTAB. Absent: respiratory distress - Cardiovascular Cardiovascular exam: Present: RRR, +S1, +S2 - GI/Abdominal GI/Abdominal exam: Present: normal bowel sounds, soft. Absent: tenderness - Extremities Exam Extremities exam: Present: warm. Absent: calf tenderness, pedal edema, tenderness - Neurological Exam Neurological exam: Present: alert, oriented X3, no focal deficits - Psychiatric Psychiatric exam: Present: depressed - Skin Skin exam: Present: dry, warm Additional comments: large linear wound about right thoracic back Internal Medicine: Result - Labs CBC & Chem 7: 05/27/17 05:38 05/27/17 05:38 Labs: Short CBC 05/27/17 Range/Units 05:38 WBC 6.6 (4.3-11.1) K/mcL Hgb 13.8 (11.5-15.4) g/dL Hct 42.2 (35.3-44.9) % Plt Count 227 (140-400) K/mcL Neutrophils # 4.0 (1.6-8.9) K/mcL BMP 05/27/17 05:38 Sodium 144 Potassium 3.3 L Chloride 110 H Carbon Dioxide 26 BUN 15 Creatinine 0.96 Glucose 103 Calcium 8.1 L Consult Discharge Plan - Plan Instructions: Chest Pain (DC), Urinary Tract Infection in Women (DC) Referrals: Marielos Awad MD [Primary Care Provider] - Prescriptions: Ciprofloxacin [Cipro] 500 mg PO BID #10 tablet <Shahbaz Mcbride - Last Filed: 05/28/17 07:47> Date of Encounter: 05/27/17 - Constitutional Vitals: Temp Pulse Resp BP Pulse Ox 97.9 F 59 18 167/95 97 05/28/17 07:00 05/28/17 07:00 05/28/17 07:00 05/28/17 07:00 05/28/17 07:00 Internal Medicine: Result - Labs CBC & Chem 7: 05/27/17 05:38 05/27/17 05:38 - Attending Attestation I conducted a face to face diagnostic evaluation of this patient and my medical decision-making was reviewed with the Resident Physician, Dr Rodger Christianson. I agree with the documented findings, disposition and treatment plan as described except to the extent set forth below: Patient is in no acute distress, awake alert oriented. Heart is regular, no murmurs. Lungs are clear. We will switch to oral antibiotics. Pending placement and assessment of mental illness by the formerly [facility]. Shahbaz Mcbride MD
[2017-05-27] MEDS: Insulin LISPRO 300 UNITS/3 ML VIAL SQ SCH ×4 (09:28→21:16)
[2017-05-27] MEDS: Gabapentin 300 MG CAPSULE PO SCH ×3 (09:31→21:15)
[2017-05-27] MEDS: Nystatin POWDER 30 GM BOTTLE TP SCH ×2 (16:22→21:15)
--- NOTE | 2017-05-28 08:00 | Internal Med Progress Note ---
<Rodger Christianson - Last Filed: 05/28/17 10:30> Date of Encounter: 05/28/17 Time of Encounter: 08:00 - Assessment and plan (1) UTI (urinary tract infection) Status: Acute Assessment and plan: Denies any dysuria this morning Cipro day 2 Urine culture pending Discharged today to rehab facility. [facility] Approved Qualifiers: Urinary tract infection type: acute cystitis Hematuria presence: without hematuria Qualified Code(s): N30.00 - Acute cystitis without hematuria (2) Hypothyroidism Status: Chronic Assessment and plan: TSH 38.8 and Free t4 0.64 Increased to 175 Qualifiers: Hypothyroidism type: acquired Qualified Code(s): E03.9 - Hypothyroidism, unspecified (3) Depression Status: Chronic Assessment and plan: Appears to be stable at this time Continue Zoloft [facility] evaluated. Approved. Qualifiers: Depression Type: unspecified Qualified Code(s): F32.9 - Major depressive disorder, single episode, unspecified (4) Diabetes Status: Chronic Assessment and plan: A1C 5.5 SS for coverage Qualifiers: Diabetes mellitus type: type 2 Diabetes mellitus complication status: with kidney complications Diabetes mellitus complication detail: with chronic kidney disease Diabetes mellitus correction insulin use: without terminal gauger use Chronic kidney disease stage: stage 3 (moderate) Qualified Code(s): E11.22 - Type 2 diabetes mellitus with diabetic chronic kidney disease; N18.3 - Chronic kidney disease, stage 3 (moderate); N18.3 - Chronic kidney disease, stage 3 (moderate) (5) Wound of right side of back Status: Chronic Assessment and plan: Appears to be healing, no drainage Wound care consulted Appreciate recommendations Qualifiers: Encounter type: initial encounter Qualified Code(s): S21.201A - Unspecified open wound of right back wall of thorax without penetration into thoracic cavity, initial encounter (6) Chest pain Status: Resolved Assessment and plan: Resolved Trop neg x3 No EKG changes Consider further outpatient workup after discharge Qualifiers: Chest pain type: precordial pain Qualified Code(s): R07.2 - Precordial pain - Subjective Interval history: Patient is resting comfortably in chair this morning. She has no new complaints and no events overnights. Denies any CP, SOB, palpitations, n/v, [place], fevers or LE edema. [facility] evaluated yesterday. Approved for d/c to short term rehab. - Constitutional Vitals: Temp Pulse Resp BP Pulse Ox 97.9 F 59 18 167/95 97 05/28/17 07:00 05/28/17 07:00 05/28/17 07:00 05/28/17 07:00 05/28/17 07:00 General appearance: Present: cooperative, A&O X 3, no acute distress (sitting up in chair eating breakfast), answers questions appropriately - Head Head exam: Present: atraumatic, normocephalic - Eye Eye exam: Present: EOMI, normal appearance - ENT ENT exam: Present: mucous membranes moist - Neck Neck exam general surgery: Present: supple, trachea midline - Respiratory Respiratory exam: Present: CTAB. Absent: respiratory distress - Cardiovascular Cardiovascular exam: Present: RRR, +S1, +S2 - GI/Abdominal GI/Abdominal exam: Present: normal bowel sounds, soft. Absent: tenderness - Extremities Exam Extremities exam: Present: warm. Absent: pedal edema - Neurological Exam Neurological exam: Present: alert, oriented X3, no focal deficits - Psychiatric Psychiatric exam: Present: depressed - Skin Skin exam: Present: dry, warm Internal Medicine: Result - Labs CBC & Chem 7: 05/27/17 05:38 05/27/17 05:38 Consult Discharge Plan - Plan Instructions: Chest Pain (DC), Urinary Tract Infection in Women (DC) Referrals: Marielos Awad MD [Primary Care Provider] - Prescriptions: Ciprofloxacin [Cipro] 500 mg PO BID #10 tablet Gabapentin [Neurontin] 300 mg PO TID #21 capsule Oxycodone HCl 5 mg PO TID #21 tablet <Shahbaz Mcbride - Last Filed: 05/28/17 17:11> Date of Encounter: 05/28/17 - Constitutional Vitals: Temp Pulse Resp BP Pulse Ox 97.9 F 92 18 136/74 98 05/28/17 11:10 05/28/17 11:10 05/28/17 11:10 05/28/17 11:10 05/28/17 11:10 Internal Medicine: Result - Labs CBC & Chem 7: 05/27/17 05:38 05/27/17 05:38 - Attending Attestation I conducted a face to face diagnostic evaluation of this patient and my medical decision-making was reviewed with the Resident Physician. I agree with the documented findings, disposition and treatment plan as described except to the extent set forth below: Patient is in no acute distress awake alert oriented. Heart is regular. Lungs are clear. Plan: Switch to oral antibiotics and will discharge patient to skilled nursing. Shahbaz Mcbride MD
[2017-05-28] MEDS: Insulin LISPRO 300 UNITS/3 ML VIAL SQ SCH (08:02)
[2017-05-28] MEDS: Gabapentin 300 MG CAPSULE PO SCH (08:06)
[2017-05-28] MEDS: Nystatin POWDER 30 GM BOTTLE TP SCH (08:07)
[2017-05-28 11:12] VITALS: BP 136/74
== END 2017-05-28 12:25 ==
LOC: EMEROO 18:41 → 3NENU 18:41 → SUATTDRO 21:27 → 3NENU 22:27
PROVIDERS: ADMIT Internal Medicine Hematology & Oncology; ATTEND Internal Medicine